=== PATIENT | female | born 1985 | race African-American/Black ===

== ENCOUNTER 2023-05-03 07:22 | Emergency (ER) | payer BC, SELFPAY ==
--- NOTE | ~2023-05-03 | US_ITS ---
EXAMINATION: US OB <=14 wk fetus w TV DATE: 05/03/2023 08:52 INDICATION: Patient miscarried. TECHNIQUE: Real-time transabdominal and transvaginal obstetric ultrasound. FINDINGS: No prior studies for comparison. The uterus measures 8.7 x 5.3 x 5.5 cm. There is a complex cystic structure in the lower uterine segm ent containing internal echoes. No definitive heart motions detected. Right ovary contains a 2 cm corpus luteal cyst. Left ovary is unremarkable. There is free fluid in the pelvis. IMPRESSION: 1. Complex cystic structure lower uterine segment near the cervix. Differential diagnosis includes co mplicated nabothian cyst or gestational sac. No heart motions detected. Recommend follow-up wit h serial quantitative beta-hCG levels and ultrasound as clinically warranted Reviewed, dictated and finalized at location B. IMPRESSION: 1. Complex cystic structure lower uterine segment near the cervix. Differential diagnosis includes complicated nabothian cyst or gestational sac. No hea rt motions detected. Recommend follow-up with serial quantitative beta-hCG leve ls and ultrasound as clinically warranted
[2023-05-03 07:29] VITALS: BP 111/76; PULSE 91; RESP 20; TEMP 36.4; O2SAT 99
[2023-05-03 08:19] LABS: Add Urine Microscopic? YES; Appearance Urine Clear (Clear); Bilirubin Urine Negative (Negative); Blood Urine Trace-Lysed (Negative); Color Urine Yellow (Yellow); Glucose Urine UA Negative (Negative); Ketones Urine Negative (Negative); Leukocyte Esterase Ur Negative LEU/UL (Negative); Nitrate Urine Negative (Negative); Protein Urine Negative (Negative); Urobilinogen Urine 0.2 mg/dL (<2.0)
[2023-05-03 08:21] LABS: Bacteria Urine None Seen /hpf; Non Pathogenic Casts 0-2; RBC Urine 0-2 /hpf (0-2); Squamous Epithelial Cell Urine None Seen /hpf (Few); WBC Urine 0-5 /hpf (0-3)
--- NOTE | 2023-05-03 09:23 | ED.FEMALEGU ---
HPI - Female Genitourinary General Chief complaint: POSTDOCTORAL FELLOW Stated complaint: abdominal pain after miscarriage Time Seen by Provider: 05/03/23 07:54 History of Present Illness HPI Narrative: Pt presents with intermittent crampy lower abdomina pain and vaginal bleeding. Pt says she was given medicines to induce a miscarriage. Pt says she was seen at [facility] last week for abdominal pain and was prescribed oxycodone for pain but says is still having pain. Pt denies urinary symptoms. Related Data Allergies Allergy/AdvReac Type Severity Reaction Status Date / Time minocycline Allergy Rash Verified 05/03/23 07:43 Review of Systems Review of Systems: All systems reviewed & are unremarkable except as noted in HPI and below Exam Const: General: healthy appearing Nutritional Appearance: well nourished Orientation/consciousness: patient oriented x3 Limitations: no limitations Resp: Effort & Inspection: normal respiratory effort Auscultation: clear to auscultation bilaterally Cardio: Rate: regular rate Rhythm: regular rhythm GI: GI Palp: Yes Tenderness to palpation present (GI) (mild suprapbic) Auscultation: normal bowel sounds Neuro: General: patient oriented x3, moves all extremities, no meningeal signs and no focal motor deficits Speech: normal speech Extrem: General: normal to inspection and no clubbing, cyanosis or edema Psych: Appearance: grossly normal Mental Status: mental status grossly normal Affect: normal affect Attitude: cooperative Course Vital Signs Vital signs: Vital Signs Temperature 97.6 F 05/03/23 07:29 Pulse Rate 91 05/03/23 07:29 Respiratory Rate 20 05/03/23 07:29 Blood Pressure 111/76 05/03/23 07:29 Pulse Oximetry 99 05/03/23 07:29 Oxygen Delivery Room Air 05/03/23 07:29 Temperature 97.6 F 05/03/23 07:29 Pulse Rate 77 05/03/23 09:39 Respiratory Rate 20 05/03/23 09:39 Blood Pressure 110/72 05/03/23 09:39 Pulse Oximetry 100 05/03/23 09:39 Oxygen Delivery Room Air 05/03/23 07:29 MDM - Female Genitourinary MDM Narrative Medical decision making narrative: Pt likely continuing to miscarry but will check UA and pelvic sono to make sure not large collection of blood. UA neg and pelvic sono shows likely gestational sac near cervix. discussed with Dr Andersen and wants serial HCG's and type and screen. Pt says is + blood type but will check here so it is in our system. she will folow with serial hcg's Lab Data Labs: Lab Results 05/03/23 05/03/23 Range/Units 08:08 09:43 Beta HCG, Quant 553.06 mIU/ML Urine Color Yellow (Yellow) Urine Appearance Clear (Clear) Urine pH 6.0 (5.0-9.0) Ur Specific [place] 1.020 (1.001-1.035) Urine Protein Negative (Negative) mg/dL Urine Glucose (UA) Negative (Negative) mg/dL Urine Ketones Negative (Negative) mg/dL Ur Blood (Man) Trace-lysed H (Negative) Urine Nitrate Negative (Negative) Urine Bilirubin Negative (Negative) Urine Urobilinogen 0.2 (<2.0) mg/dL Leukocyte Esterase Rfl Negative (Negative) [place]O/UL Urine RBC 0-2 (0-2) /hpf Urine WBC 0-5 (0-3) /hpf Ur Squamous Epith Cells None seen (Few) /hpf Urine Bacteria None seen /hpf Urine Casts 0-2 Blood Type O Positive Antibody Screen Negative Discharge Plan Discharge Clinical Impression: Incomplete miscarriage Patient Disposition: Home, Self-Care Condition: Stable Instructions: Antibiotic Form, Miscarriage (ED) Prescriptions: New naproxen [Naprosyn] 500 mg tablet 500 mg PO BID Qty: 20 0RF Follow-up/Referrals: Flori Andersen MD [Physician] - UNKNOWN,DOCTOR [Primary Care Provider] -
[2023-05-03 09:39] VITALS: BP 110/72; PULSE 77; RESP 20; O2SAT 100
== END 2023-05-03 09:59 | disposition home or self-care (01) ==
PROVIDERS: Emergency Provider Emergency Medicine
DX: O03.4 Incomplete spontaneous abortion without complication (principal)
CPT/HCPCS: 36415; 76801; 76817; 81001; 84702; 86850; 86900; 86901; 99284

== ENCOUNTER 2023-07-23 13:33 | Outpatient (CLI) | payer BC, SELFPAY ==
--- NOTE | ~2023-07-23 | US_ITS ---
FIRST TRIMESTER ULTRASOUND 07/23/2023 13:37 CDT Ordering provider: Flori Andersen MD History: . with h/o recurrent loss . Comparison: None. FINDINGS: Intrauterine gestational 5 weeks and 6 days.. EVELIN is March 18, 2024 INTRAUTERINE GESTATIONAL SAC: Present. [Diameter is 2.1 cm.] Equal to 6 weeks 4 days. YOLK SAC: Present.Measures 0.3 cm. POLE: Present. Measures 0.25 cm. Heart rate is 113 5 bpm. UTERUS: The uterus measures 8.4x 5.4x 5.4 in length which is within normal limits. No myometrial mass es. FREE FLUID: Minimal fluid is seen. OVARIES: Normal in size with the right measuring 2.1x 2.1x 2.7 cm. and the left measuring 6.7 xx 3.1x 3.5 cm. A simple cyst is seen measuring 3.3 x 2.7 x 3.2 cm and a complex cyst measuring 1.5 x 1.1 x 1.1 cm. Doppler flow is demonstrated within both ovaries. ADNEXAL MASSES: None. IMPRESSION: Intrauterine with pole of 5 weeks and 6 days with EVELIN March 18, 2024. Complex cyst in the left ovary. Simple cyst in the left ovary most likely corpus luteum. Follow-up advised. Reviewed, dictated and finalized at location A.
== END 2023-07-23 13:34 ==
LOC: MICIMG 13:35
PROVIDERS: PCP Family Medicine; Visit Provider Obstetrics & Gynecology Gynecology
DX: O26.21 Pregnancy care for patient with recurrent pregnancy loss, first trimester (principal); Z3A.00 Weeks of gestation of pregnancy not specified; N83.202 Unspecified ovarian cyst, left side
CPT/HCPCS: 76817

== ENCOUNTER 2023-09-11 09:32 | Outpatient (CLI) | payer BC, SELFPAY ==
--- NOTE | ~2023-09-11 | US_ITS ---
US OB <= 14 weeks fetus DATE: 09/11/2023 10:05 INDICATION: Left ovarian cyst follow-up TECHNIQUE: Real-time and color flow imaging and Doppler analysis. COMPARISON: 05/03/2023 obstetrical ultrasound FINDINGS: The uterus measures 11.7 cm sagittal, 9.4 cm AP abdomen 11.8 cm transverse dimension. There is a live craig intrauterine gestation, with low-lying anterior placenta. [place]-rump length of 7.3 cm consistent with estimated gestational age of 13 weeks 3 days. heart rate of 150 bpm. Right ovary measures 2.6 x 2.0 x 2.3 cm. Left ovary measures 4.2 x 2.3 x 4.5 cm. There is a left ovarian 2.9 x 2.3 cm cyst. No abnormal free pelvic fluid collection is detected. IMPRESSION: 2.3 x 2.9 cm left ovarian cyst, compared to 2.7 x 3.3 cm on 07/23/2023 Reviewed, dictated and finalized at Location A. Reviewed, dictated and finalized at location J. IMPRESSION: 2.3 x 2.9 cm left ovarian cyst, compared to 2.7 x 3.3 cm on 07/23/19 24
== END 2023-09-11 09:33 ==
LOC: MICIMG 09:34
PROVIDERS: PCP Family Medicine; Visit Provider Obstetrics & Gynecology Gynecology
DX: N83.292 Other ovarian cyst, left side (principal)
CPT/HCPCS: 76801

== ENCOUNTER 2023-10-16 09:44 | Outpatient (CLI) | payer BC, SELFPAY ==
--- NOTE | ~2023-10-16 | US_ITS ---
EXAMINATION: US OB follow up DATE: 10/16/2023 10:05 INDICATION: Low-lying placenta. Left ovarian cyst. TECHNIQUE: Real-time transabdominal ultrasound of the pelvis was performed. COMPARISON: Ultrasound 09/11/2023, 07/23/2023 FINDINGS: There is a single living fetus in vertex presentation. The placenta is anterior, 6.0 cm from the cer vix. The cervical length is 3.0 cm on transabdominal images, which is normal. heart rate is 158 beats per minute (bpm). The amniotic fluid volume is subjectively normal. Right ovary measures 2.6 x 4.0 x 1.8 cm. Left ovary measures 3.4 x 1.6 x 2.3 cm. IMPRESSION: 1. Single living intrauterine gestation with estimated date of delivery of 03/18/2024 based on the ult rasound from 07/23/2023. 2. Normal ovaries. Reviewed, dictated and finalized at location A. IMPRESSION: 1. Single living intrauterine gestation with estimated date of delivery of 03/18 based on the ultrasound from 07/23/2023. 2. Normal ovaries.
== END 2023-10-16 09:45 | disposition home or self-care (01) ==
LOC: MICIMG 09:45
PROVIDERS: PCP Obstetrics & Gynecology Gynecology; Visit Provider Obstetrics & Gynecology Gynecology
DX: N83.202 Unspecified ovarian cyst, left side (principal)
CPT/HCPCS: 76816

== ENCOUNTER 2024-03-23 16:09 | Inpatient (IN) | payer BC, SELFPAY ==
[2024-03-23] VITALS (29 sets, daily range): BP systolic 101–125; BP diastolic 67–98; PULSE 93–130; TEMP 37.2–37.4; O2SAT 91–100; BMI 31.5
--- OUTSIDE RECORDS SUMMARY | 2024-03-23 16:17 | XMS_ITS | Clinical Summary ---
Author Organization [facility] [address] Address [facility] [place] [address] Care Team Providers Care Surgery Assistant Name Role Phone Unavailable Primary Care Provider Unavailabl e Allergies Active Allergy Reactions Criticality Noted Date Comments Minocycline Hives,Itching,Rash,Swelling High 019 Medications valACYclovir (VALTREX) 1 gram tablet Take 1 Gram by mouth. 04/21/2022 Active aspirin (ECOTRIN EC) 81 mg Tablet, Delayed Release (E.C.) Take 81 mg by mouth daily. Active VIT-IRON FUM-FOLIC AC ORAL Take by mouth. Active Active Problems Estimated Date of Delivery Comme nts Yes 03/18/2024 No known active problems Encounters Date Type Department Care Team Description 03/01/2024 External Device Data [facility] ABSTRACTION Provider, Abstract 03/01/2024 External Device Data [facility] ABSTRACTION Provider, Abstract 02/23/2024 External Device Data [facility] ABSTRACTION Provider, Abstract 01/27/2024 3:21 PM [employer]ILITY SUPERVISOR - 01/27/2024 11:59 PM [employer]ACILITY SUPERVISOR Hospital Encounter [facility] [address] [place] [address] Tesha Cason MD Discharge Disposition: Home or Self Care 12/30/2023 3:27 PM [employer] FACILITY SUPERVISOR - 12/30/2023 11:59 PM [employer]ACILITY SUPERVISOR Hospital Encounter [facility] [address] [place] [address] Flori Andersen MD Discharge Disposition: Home or Self Care 12/30/2023 1:45 PM [employer]ACILITY SUPERVISOR Video Visit [facility] Maternal and Medicine - [facility] [address] [place] [address] Tashia Everett NP Abnormal TSH (Primary Dx); Prediabetes in mother during ; 28 weeks gestation of from Last 3 Months Social History Tobacco Use Types Packs/Day Years Used Date Smoking Tobacco: Never Smokeless Tobacco: Never Tobacco Cessation:Counseling Given: Yes Alcohol Use Standard Drinks/Week Comments Not Currently 0 (1 standard drink = 0.6 oz pur e alcohol) Estimated Date of Delivery Comme nts Yes 03/18/2024 Sex and Gender Information Value Date Recorded Sex Assigned at Female 09/08/2023 11:40 AM CDT Legal Sex Female 4:10 PM CDT Gender Identity Female 09/08/2023 11:40 AM CDT Sexual Orientation Straight 09/08/2023 11 :40 AM CDT Last Filed Vital Signs Vital Sign Reading Time Taken Comments Blood Pressure - - Pulse - - Temperature - - Respiratory Rate - - Oxygen Saturation - - Inhaled Oxygen Concentration - - Weight 75.8 kg (167 lb) 09/30/2023 8:05 AM CDT Height 165.1 cm (5' 5 ) 09/30/2023 8:05 AM CDT Body Mass Index 27.79 09/30/2023 8:05 AM CDT Plan of Treatment Health Maintenance Due Date Last Done Comments DTAP/TDAP/TD VACCINES (1 - Tdap) 2004 HEPATITIS B VACCINES (1 of 3 - 19+ 3-dose series) 2004 INFLUENZA VACCINE (#1) 2023 11/04/2022 CERVICAL CANCER SCREENING 07/09/2025 07/09/2022 HPV VACCINES Aged Out No longer eligi ble based on patient's age to complete this topic PNEUMOCOCCAL VACCINE 0-64 YEARS Aged Out No longer eligible based on patient's age to complete this topic RSV VACCINE (60+ or ) (No Doses Required) Completed Procedures Procedure Name Priority Date/Time Associated Diagnosis Comments US OB FOLLOW UP PER FETUS Routine 01/27/2024 3:43 PM [employer]ILITY SUPERVISOR Advanced maternal age in multigravida, third trimester Sickle cell trait US OB FOLLOW UP PER FETUS Routine 12/30/2023 4:03 PM [employer]ACILITY SUPERVISOR Encounter for ultrasound to assess growth Choroid plexus cyst from Last 3 Months Results * US OB FOLLOW UP PER FETUS (01/27/2024 3:43 PM [employer]ACILITY SUPERVISOR) Only the most recent of2 resultswithin the time period is included. Anatomical Region Laterality Modality Pelvis Ultrasound 01/27/2024 3:21 PM [employer]ACILITY SUPERVISOR Narrative 02/04/2024 1:03 PM [employer]E FACILITY SUPERVISOR STL FOLLOW UP ----- Pat. Name: DEVORAH RIDDLE Study Date: 01/27/2024 3:21pm Pat. NO: [id number] Referring MD: FLORI ANDERSEN MD Site: [facility] Program Manager: Belle Houston RDMS : 1985 Age: 38 ----- INDICATION ----- Screening Follow-Up Advanced Maternal Age (AMA), Multigravida Sickle Cell Trait Thyroid Dysfunction Complicating CODING ----- Diagnoses Z3A.32: Weeks of gestation O99.283: Other endocrine, nutritional and metabolic diseases complicating D57.3: Sickle-cell trait O09.523: Supervision of elderly multigravida Z3A.32: Weeks of gestation O35.8XX0: Maternal care for other (suspected) abnormality and damage, not applicable or unspecified O99.283: Other endocrine, nutritional and metabolic diseases complicating O09.523: Supervision of elderly multigravida Z36.2: Encounter for other screening follow-up Procedures 13841: Ultrasound, uterus, real time with image documentation, follow up, transabdominal approach per fetus HISTORY ----- OB History 2. Para 0 A1 METHOD ----- Transabdominal ultrasound examination ----- Barillas . Number of fetuses: 1 DATING ----- GA by prior assessment 32 w + 5 d EVELIN by prior assessment: 03/18/2024 Ultrasound examination on: 01/27/2024 GA by U/S based upon: AC, BPD, EFW, Femur, HC GA by U/S 34 w + 1 d EVELIN by U/S: 03/08/2024 Method of dating: Restore dating from previous exam Assigned: based on stated EVELIN, selected on 11/04/2023 Assigned GA 32 w + 5 d Assigned EVELIN: 03/18/2024 BIOMETRY ----- BPD 87.4 mm 35w 2d 96% Hadlock OFD 107.9 mm 35w 4d 96% Dani HC 310.7 mm 34w 5d 67% Hadlock AC 296.4 mm 33w 4d 76% Hadlock Femur 65.5 mm 33w 5d 67% Hadlock HC / AC 1.05 47% Nicolaides Weight Calculation: EFW 2,310 g 33w 5d 77% Hadlock EFW (lb,oz) 5 lb 1 oz EFW by Hadlock ([id number]) Head / Face / Neck Biometry: Freelance Copywriter 5.7 mm Extremities / Bony Struc Biometry: FL / BPD 0.75 FL / HC 0.21 FL / AC 0.22 GENERAL EVALUATION ----- Cardiac activity present. FHR 136 bpm. movements: present. Presentation: cephalic Placenta: Placental site: anterior Umbilical cord: Cord vessels: 3 vessel cord. Insertion site: placental insertion: normal Amniotic fluid: Amount of AF: normal amount. MVP 7.4 cm. ANCELMO 17.9 cm. Q1 3.9 cm, Q2 7.4 cm, Q3 6.6 cm, Q4 0.0 cm ANATOMY ----- The following structures appear normal: Head / Neck Cranium. Lateral ventricles. Cavum septi pellucidi. Heart / Thorax RVOT view. Diaphragm. Abdomen Stomach. Kidneys. Bladder. GROWTH OVERVIEW ----- Exam date GA BPD (mm) HC (mm) AC (mm) FL (mm) HL (mm) EFW (g) 11/04/2023 20w 5d 51.2 80% 184.4 45% 171.6 85% 35.9 65% 35.3 90% 442 89% 12/30/2023 28w 5d 75.7 86% 274.5 57% 250.6 61% 55.3 48% 1,383 62% 01/27/2024 32w 5d 87.4 96% 310.7 67% 296.4 76% 65.5 67% 2,310 77% COMMENT ----- Patient's name and date of were verified by the polo coach prior to the exam IMPRESSION ----- 1. Single living fetus with a gestational age of 32w 5d, based on the reported clinical dates. 2. Current growth parameters are consistent with the stated EDC. The size is appropriate for gestational age at 77% percentile (2310 g). 3. Unremarkable limited anatomy noted. A detailed anatomy cannot be performed secondary to advanced gestational age. However, there are no gross structural abnormalities noted. 4. The amniotic fluid is normal for gestational age (MVP:7.4 cm , ANCELMO:17.9 cm ). 5. Anterior placenta. No previa/not low-lying. 6. Cephalic presentation. Recommendations: - Further imaging as indicated. Thank you for allowing us to participate in the care of this patient. ADDENDUM ----- retrigger order Procedure Note Yara Carlton MD - 02/04/2024 STL FOLLOW UP ----- Pat. Name:Julia RIDDLE Date:01/27/2024 3:21pm Pat. NO: [id number] MD:FLORI ANDERSEN [facility] RDMS :1985Age:38 ----- INDICATION ----- Screening Follow-Up Advanced Maternal Age (AMA), Multigravida Sickle Cell Trait Thyroid Dysfunction Complicating CODING ----- Diagnoses Z3A.32: Weeks of gestation O99.283: Other endocrine, nutritional andmetabolic diseases complicating D57.3: Sickle-cell trait O09.523: Supervision of elderly multigravida Z3A.32: Weeks of gestation O35.8XX0: Maternal care for other (suspected) abnormality and damage, not applicable or unspecified O99.283: Other endocrine, nutritional andmetabolic diseases complicating O09.523: Supervision of elderly multigravida Z36.2: Encounter for other screeningfollow-up Procedures 98245: Ultrasound, uterus, real time withimage documentation, follow up, transabdominal approach per fetus HISTORY ----- OB History 2. Para 0 A1 METHOD ----- Transabdominal ultrasound examination ----- Barillas . Number of fetuses: 1 DATING ----- GA by prior [id number] w + 5 d EVELIN by prior assessment:03/18/2024 Ultrasound examination on:01/27/2024 GA by U/S based upon:AC, BPD, EFW, Femur, HC GA by U/S34 w + 1 d EVELIN by U/S:03/08/2024 Method of dating:Restore dating from previous exam Assigned:based on stated EVELIN, selected on 11/04/2023 Assigned GA32 w + 5 d Assigned EVELIN:03/18/2024 BIOMETRY ----- BPD 87.4 mm 35w 2d 96%Hadlock OFD 107.9 mm 35w 4d 96%Dani HC 310.7 mm 34w 5d 67%Hadlock AC 296.4 mm 33w 4d 76%Hadlock Femur 65.5 mm 33w 5d 67%Hadlock HC / AC 1.05 47%Nicolaides Weight Calculation: EFW 2,310 g 33w 5d77% Hadlock EFW (lb,oz) 5 lb 1 oz EFW by Hadlock ([id number]) Head / Face / Neck Biometry: Freelance Copywriter 5.7mm Extremities / Bony Struc Biometry: FL / BPD 0.75 FL / HC 0.21 FL / AC 0.22 GENERAL EVALUATION ----- Cardiac activity present. FHR 136 bpm. movements: present.Presentation: cephalic Placenta: Placental site: anterior Umbilical cord: Cord vessels: 3 vessel cord. Insertion site: placentalinsertion: normal Amniotic fluid: Amount of AF: normal amount. MVP 7.4 cm. ANCELMO 17.9 cm. Q13.9 cm, Q2 7.4 cm, Q3 6.6 cm, Q4 0.0 cm ANATOMY ----- The following structures appear normal: Head / Neck Cranium. Lateral ventricles. Cavum septipellucidi. Heart / Thorax RVOT view. Diaphragm. Abdomen Stomach. Kidneys. Bladder. GROWTH OVERVIEW ----- Exam date GA BPD (mm) HC (mm) AC (mm) FL(mm) HL (mm) EFW (g) 11/04/2023 20w 5d 51.2 80% 184.4 45% 171.6 85%35.9 65% 35.3 90% 442 89% 12/30/2023 28w 5d 75.7 86% 274.5 57% 250.6 61%55.3 48% 1,383 62% 01/27/2024 32w 5d 87.4 96% 310.7 67% 296.4 76%65.5 67% 2,310 77% COMMENT ----- Patient's name and date of were verified by the polo coach prior tothe exam IMPRESSION ----- 1. Single living fetus with a gestational age of 32w 5d, based on thereported clinical dates. 2. Current growth parameters are consistent with the stated EDC. The fetalsize is appropriate for gestational age at 77% percentile (2310 g). 3. Unremarkable limited anatomy noted. A detailed anatomycannot be performed secondary to advanced gestational age. However, there are no gross structural abnormalities noted. 4. The amniotic fluid is normal for gestational age (MVP:7.4 cm , ANCELMO:17.9cm ). 5. Anterior placenta. No previa/not low-lying. 6. Cephalic presentation. Recommendations: - Further imaging as indicated. Thank you for allowing us to participate in the care of this patient. ADDENDUM ----- retrigger order us Tesha Cason MD ORDERABLES E dited Result - Final from Last 3 Months Insurance [facility] [employer]
--- NOTE | 2024-03-23 16:39 | P.PNAN_ITS ---
Anes - Eval Pre Procedure Procedure: labor epidural Date/Time: 03/23/24 16:39 Surgeon: sathya Preop Diagnosis: pain during labor Pre Op Diagnosis: Induction of Labor Patient Data Age: 38 Gender: F Height: Weight: Allergies Allergy/AdvReac Type Severity Reaction Status Date / Time minocycline Allergy Rash Verified 02/25/24 23:32 Home Medications ?Medication ?Instructions ?Recorded ?Confirmed ?Type aspirin 81 mg chewable tablet 81 mg PO DAILY 02/19/24 02/25/24 History (Adis Chewable Low Dose Aspirin) ferrous sulfate 15 mg iron (75 0.5 ml PO ONCE 02/19/24 02/25/24 History mg)/mL oral drops (Fe-Marlene) vit no.95-ferrous 1 tablet PO DAILY 02/19/24 02/25/24 History fumarate 28 mg-folic acid 800 mcg tablet () Patient hx anesthesia problems: none Family hx anesthesia problems: none Results Review: All pre-operative results and documents have been reviewed as part of the pre- operative evaluation. PMFSH Past Medical History Medical History (Updated 03/23/24 @ 16:40 by Dianne Mac CRNA) IUP (intrauterine ), incidental HPV (human papilloma virus) infection Family History Family History (Updated 02/19/24 @ 12:25 by Svetlana Crenshaw RN) Grandparent Cerebrovascular accident Diabetes mellitus Social History Social History Substance use: never Spiritual care concerns: No Exam Day of Procedure 03/23/24 16:39
[2024-03-23 17:09] LABS: Basophils Percent Auto 0.3 % (0.2-1.2); Eosinophils Percent Auto 0.3 % (0-4.4); Hematocrit 35.2 % (37.0-47.0); Immature Granulocyte Absolute 0.03 K/mm3 (0.00-0.031); Immature Granulocyte Percent A 0.3 % (0-0.5); Lymphocytes Absolute Auto 1.93 K/mm3 (0.9-3.2); Lymphocytes Percent Auto 19.1 % (18.3-44.2); Mean Corpuscular HGB Conc 34.1 g/dl (32-36); Mean Corpuscular Hemoglobin 29.3 pg (26-34); Mean Corpuscular Volume 86.1 fl (80-100); Mean Platelet Volume 11.1 fl (7.4-10.4); Monocytes Absolute Auto 0.7 K/mm3 (0.1-0.6); Monocytes Percent Auto 6.4 % (2.6-8.5); Neutrophils Absolute Auto 7.5 K/mm3 (1.3-6.7); Neutrophils Percent Auto 73.6 % (45.5-73.1); Platelet Count Result 238 k/mm3 (150-375); Red Blood Count 4.09 M/mm3 (4.2-5.4); Red Cell Distribution Width 14.5 % (11.5-14.5); White Blood Count 10.1 K/mm3 (4.5-10.0)
[2024-03-23] MEDS: DINOPROSTONE 10 MG VAG INSERT VAGINAL (17:11)
--- NOTE | 2024-03-23 17:15 | LDADM ---
This patient, Devorah Darden, was admitted to Labor/Delivery/Recovery 108 on 03/23/24 at 16:09. Plans for labor, pain management and were discussed with patient. Patient/family oriented to hospital policies and general routines including ID bracelet, bed and alarms, visiting hours, pain management, procedures, bathroom and other care routines, personal items, smoking policy, room service/diet and guest tray routines, security routines, and visiting hours. Patient/Family are encouraged to report perceived risks to care and to ask questions if they do not understand what they are told or what they should do. See OBIX for further documentation.
[2024-03-23 17:58] LABS: Rapid Plasma Reagin Non-Reactive (NonReactive)
[2024-03-23 17:59] LABS: HIV 1/2 Ab P24 Ag Result Negative (Negative)
[2024-03-23] MEDS: fentaNYL CITRATE INJ (*CRX) 100 MCG/2 ML VIAL 50 MCG IV PUSH (22:51)
[2024-03-23] MEDS: ONDANSETRON INJ 4 MG/2 ML VIAL IV PUSH (22:59)
[2024-03-24] VITALS (137 sets, daily range): BP systolic 94–122; BP diastolic 45–93; PULSE 78–127; TEMP 36.3–37.3; O2SAT 94–100
[2024-03-24] MEDS: LACTATED RINGERS 500 ML 999 ML IV CONT (00:47)
[2024-03-24] MEDS: OXYTOCIN 30 UNITS/NS 500 ML 30 UNITS/500 ML BAG IV CONT (07:20)
[2024-03-24] MEDS: LACTATED RINGERS 1,000 ML 125 ML IV CONT ×2 (07:20→15:54)
--- NOTE | 2024-03-24 07:45 | WPDOBADMIT ---
Obstetrics - Admit Note Admission Note: record reviewed. No pertinent additions to the history and/or any subsequent changes in the physical findings that are not consistent with the expected course of the were found. Additions to the history and/or subsequent changes in the physical findings follow. Here for MIL. Cervadil last pm pulled at about mn due to tachysystole. Infant with random late decels per RN that resolved with position change and fluids. This am FHTs cat. I and pitocin started. Cervix FT/50/-2.
[2024-03-24] MEDS: ACETAMINOPHEN 500 MG TABLET 1000 MG PO (23:45)
[2024-03-24] MEDS: FAMOTIDINE 20 MG/2 ML VIAL IV PUSH (23:53)
[2024-03-24] MEDS: ONDANSETRON INJ 4 MG/2 ML VIAL IV PUSH (23:55)
--- NOTE | 2024-03-24 23:57 | WPDHPUPDATE1 ---
History and Physical Update Update Date/Time: 03/24/24 23:57 History and Physical has been reviewed, including an updated exam of the patient. There are NO changes in the patient's condition. Risks, benefits, and alternatives have been discussed and questions answered. Patient agrees to proceed with procedure.
--- NOTE | 2024-03-24 23:57 | PM.IMHP ---
H&P: HPI History of Present Illness Date/Time: 03/24/24 23:57 Chief Complaint: intolerance of labor Narrative: The patient is a 38-year-old 2 para 0 aborta 1 at 40 and 6 7th weeks admitted for medical induction of labor. After Cervidil was placed, [id number] later of tachysystole occurred and the Cervidil had to be pulled due to intolerance. Pitocin was unable to be started right away due to continued random late decelerations. The heart sounds starting this afternoon were category 1 so Pitocin was able to be started. Pitocin increased slowly until I received a phone call at 11:26 pm that the patient began having repetitive late decelerations and the Pitocin was discontinued. Contractions spaced out but heart tones had no accelerations with minimal variability for [id number]. The heart tones now have good variability with 10 beat accelerations. The patient's cervix has had no cervical change throughout the induction process. Plan is to proceed with primary when staffing is available. In addition the plan had been to proceed with bilateral tubal ligation performed as a salpingectomy if the patient required a . The patient has still voiced the request for permanent sterilization. Therefore we will proceed also with a bilateral salpingectomy. has been uncomplicated to this point. labs O positive, rubella immune, RPR negative, hepatitis-B surface antigen negative, group B strep negative. Review of Systems Review of Systems: not repeated day of surgery; patient states no changes in status PMFSH Past Medical History Medical History (Updated 03/25/24 @ 00:06 by Flori Andersen MD) History of TB (tuberculosis) Treated in 2021 Hyperthyroidism HPV (human papilloma virus) infection Family History Family History (Updated 02/19/24 @ 12:25 by Svetlana Crenshaw RN) Grandparent Cerebrovascular accident Diabetes mellitus Social History Social History Smoking status: Never smoker Second hand tobacco smoke exposure: No Substance use: never Do You Feel Safe in your Home?: Yes Lack of Transportation: No Lack of Food: Never True Current Housing: I Have Housing Concerned About Future Housing: No Difficulty Paying Gas/Electric Bills: No Difficulty Paying for Meds: No Currently Unemployed: No Education: High School Diploma/GED Difficulty w/ Childcare or Family Care: No Spiritual care concerns: No Meds Home Medications and Allergies Home Medications ?Medication ?Instructions ?Recorded ?Confirmed ?Type aspirin 81 mg chewable tablet 81 mg PO DAILY 02/19/24 03/23/24 History (Adis Chewable Low Dose Aspirin) ferrous sulfate 15 mg iron (75 0.5 ml PO ONCE 02/19/24 03/23/24 History mg)/mL oral drops (Fe-Marlene) vit no.95-ferrous 1 tablet PO DAILY 02/19/24 03/23/24 History fumarate 28 mg-folic acid 800 mcg tablet () valacyclovir 500 mg tablet 500 mg PO DAILY 03/23/24 03/23/24 History Allergies Allergy/AdvReac Type Severity Reaction Status Date / Time minocycline Allergy Rash Verified 02/25/24 23:32 Vital Signs Vital Signs - 24 hr 03/24/24 00:00 03/24/24 00:05 03/24/24 00:10 Temperature Pulse Rate 101 H Blood Pressure 117/83 Pulse Oximetry 95 95 94 03/24/24 00:15 03/24/24 00:20 03/24/24 00:25 Temperature Pulse Rate Blood Pressure Pulse Oximetry 95 95 95 03/24/24 00:30 03/24/24 00:34 03/24/24 00:44 Temperature Pulse Rate 92 Blood Pressure 105/66 Pulse Oximetry 96 99 03/24/24 00:46 03/24/24 00:47 03/24/24 00:51 Temperature 99.1 F Pulse Rate Blood Pressure Pulse Oximetry 98 100 03/24/24 00:56 03/24/24 01:00 03/24/24 01:01 Temperature Pulse Rate 107 H Blood Pressure 118/93 H Pulse Oximetry 97 98 03/24/24 01:06 03/24/24 01:11 03/24/24 01:16 Temperature Pulse Rate Blood Pressure Pulse Oximetry 97 98 96 03/24/24 01:21 03/24/24 01:34 03/24/24 01:39 Temperature Pulse Rate Blood Pressure 103/79 Pulse Oximetry 98 97 97 03/24/24 01:44 03/24/24 01:49 03/24/24 01:54 Temperature Pulse Rate Blood Pressure Pulse Oximetry 98 95 96 03/24/24 01:59 03/24/24 02:01 03/24/24 02:04 Temperature Pulse Rate 80 Blood Pressure 114/76 Pulse Oximetry 97 96 03/24/24 02:09 03/24/24 02:14 03/24/24 02:19 Temperature Pulse Rate Blood Pressure Pulse Oximetry 97 96 96 03/24/24 02:24 03/24/24 02:29 03/24/24 02:31 Temperature Pulse Rate 92 Blood Pressure 101/82 Pulse Oximetry 97 96 03/24/24 02:34 03/24/24 02:39 03/24/24 02:44 Temperature Pulse Rate Blood Pressure Pulse Oximetry 95 96 96 03/24/24 02:49 03/24/24 02:54 03/24/24 02:59 Temperature Pulse Rate Blood Pressure Pulse Oximetry 96 96 96 03/24/24 03:00 03/24/24 03:04 03/24/24 03:09 Temperature Pulse Rate 87 Blood Pressure 95/53 L Pulse Oximetry 96 96 03/24/24 03:14 03/24/24 03:19 03/24/24 03:24 Temperature Pulse Rate Blood Pressure Pulse Oximetry 95 96 98 03/24/24 03:29 03/24/24 03:34 03/24/24 03:39 Temperature Pulse Rate Blood Pressure Pulse Oximetry 97 96 98 03/24/24 03:44 03/24/24 03:49 03/24/24 03:54 Temperature Pulse Rate Blood Pressure Pulse Oximetry 98 97 98 03/24/24 03:59 03/24/24 04:04 03/24/24 04:09 Temperature Pulse Rate Blood Pressure Pulse Oximetry 97 96 96 03/24/24 04:14 03/24/24 04:19 03/24/24 04:24 Temperature 98.7 F Pulse Rate 90 Blood Pressure 109/73 Pulse Oximetry 96 96 97 03/24/24 04:29 03/24/24 04:30 03/24/24 04:34 Temperature Pulse Rate 84 Blood Pressure 113/75 Pulse Oximetry 96 96 03/24/24 04:39 03/24/24 04:44 03/24/24 04:49 Temperature Pulse Rate Blood Pressure Pulse Oximetry 96 96 97 03/24/24 04:54 03/24/24 04:59 03/24/24 05:00 Temperature Pulse Rate 82 Blood Pressure 102/73 Pulse Oximetry 95 97 03/24/24 05:04 03/24/24 05:09 03/24/24 05:14 Temperature Pulse Rate Blood Pressure Pulse Oximetry 97 97 97 03/24/24 05:19 03/24/24 05:24 03/24/24 05:29 Temperature Pulse Rate Blood Pressure Pulse Oximetry 97 96 97 03/24/24 05:30 03/24/24 05:34 03/24/24 05:39 Temperature Pulse Rate 86 Blood Pressure 117/73 Pulse Oximetry 96 96 03/24/24 05:44 03/24/24 05:49 03/24/24 05:54 Temperature Pulse Rate Blood Pressure Pulse Oximetry 96 97 97 03/24/24 05:59 03/24/24 06:00 03/24/24 06:04 Temperature Pulse Rate 84 Blood Pressure 104/75 Pulse Oximetry 96 96 03/24/24 06:09 03/24/24 06:15 03/24/24 06:20 Temperature Pulse Rate Blood Pressure Pulse Oximetry 96 97 98 03/24/24 06:25 03/24/24 06:30 03/24/24 07:00 Temperature 98.3 F Pulse Rate Blood Pressure Pulse Oximetry 98 100 03/24/24 07:01 03/24/24 07:06 03/24/24 07:11 Temperature Pulse Rate Blood Pressure Pulse Oximetry 98 98 99 03/24/24 07:16 03/24/24 07:20 03/24/24 07:21 Temperature Pulse Rate 93 Blood Pressure 103/63 Pulse Oximetry 98 99 03/24/24 07:26 03/24/24 07:30 03/24/24 07:31 Temperature Pulse Rate 93 Blood Pressure 94/75 L Pulse Oximetry 98 98 03/24/24 07:36 03/24/24 07:41 03/24/24 07:46 Temperature Pulse Rate Blood Pressure Pulse Oximetry 100 100 97 03/24/24 07:51 03/24/24 07:52 03/24/24 07:57 Temperature Pulse Rate Blood Pressure Pulse Oximetry 95 96 96 03/24/24 08:00 03/24/24 08:02 03/24/24 08:07 Temperature Pulse Rate 89 Blood Pressure 107/64 Pulse Oximetry 95 96 03/24/24 08:12 03/24/24 08:17 03/24/24 08:22 Temperature Pulse Rate Blood Pressure Pulse Oximetry 98 97 98 03/24/24 08:27 03/24/24 08:30 03/24/24 08:32 Temperature Pulse Rate 90 Blood Pressure 113/72 Pulse Oximetry 98 97 03/24/24 08:37 03/24/24 09:00 03/24/24 09:30 Temperature 97.4 F L Pulse Rate 81 91 Blood Pressure 105/64 118/81 Pulse Oximetry 97 03/24/24 10:00 03/24/24 10:30 03/24/24 11:00 Temperature 99 F Pulse Rate 87 91 Blood Pressure 107/68 101/63 Pulse Oximetry 03/24/24 11:01 03/24/24 11:30 03/24/24 12:30 Temperature Pulse Rate 96 95 98 Blood Pressure 110/60 106/79 110/74 Pulse Oximetry 03/24/24 13:00 03/24/24 13:30 03/24/24 15:00 Temperature 98.8 F Pulse Rate 102 H 97 Blood Pressure 114/68 119/83 Pulse Oximetry 03/24/24 15:35 03/24/24 16:00 03/24/24 16:30 Temperature Pulse Rate 115 H 99 89 Blood Pressure 119/83 122/80 112/89 Pulse Oximetry 03/24/24 17:00 03/24/24 18:01 03/24/24 18:30 Temperature Pulse Rate 95 127 H 97 Blood Pressure 111/79 98/45 L 108/81 Pulse Oximetry 03/24/24 19:00 03/24/24 19:17 03/24/24 21:00 Temperature 98.1 F 98.3 F Pulse Rate 98 Blood Pressure 116/70 Pulse Oximetry 03/24/24 21:07 03/24/24 21:30 03/24/24 22:00 Temperature Pulse Rate 108 H 83 87 Blood Pressure 117/88 121/81 114/76 Pulse Oximetry 03/24/24 23:38 Temperature Pulse Rate 95 Blood Pressure 122/83 Pulse Oximetry Exam Const: General: healthy appearing and alert Orientation/consciousness: patient oriented x3 Resp: Effort & Inspection: normal respiratory effort GI: GI Palp: Yes Soft to palpation and No Tenderness to palpation present (GI) : External Female Exam: normal external appearance Speculum Exam - Vagina: normal appearance of the vagina and normal vaginal discharge Bimanual exam- vagina & uterus: consistency normal Bimanual Exam- Adnexa, other: normal adnexae and No adnexal tenderness Manual OB Exam: dilated fingertip, effaced 0% and station -2 Neuro: General: patient oriented x3 Assessment and Plan Assessment and plan (1) 40 weeks gestation of : Code(s): Z3A.40 - 40 weeks gestation of Status: Acute (2) intolerance to labor, delivered, current hospitalization: Code(s): O77.9 - Labor and delivery complicated by stress, unspecified Status: Acute Assessment and Plan: Plan to proceed with primary section (3) Encounter for sterilization: Code(s): Z30.2 - Encounter for sterilization Status: Acute Assessment and Plan: Plan to proceed with bilateral salpingectomy
[2024-03-25] VITALS (24 sets, daily range): BP systolic 82–142; BP diastolic 49–113; PULSE 57–186; RESP 10–23; TEMP 36.3–37.1; O2SAT 98–100
[2024-03-25] MEDS: ceFAZolin 2 GM/D5W 50 ML 2 GM/50 ML BAG IVPB (00:05)
[2024-03-25] MEDS: ONDANSETRON INJ 4 MG/2 ML VIAL IV PUSH ×3 (00:58→05:39)
[2024-03-25] MEDS: AZITHROMYCIN 500 MG/NS 250 ML 500 MG/250 ML BAG 250 MG IVPB (01:33)
[2024-03-25] MEDS: diphenhydrAMINE HCl INJ 50 MG/ML VIAL 25 MG IV PUSH ×2 (01:41→05:42)
--- NOTE | 2024-03-25 02:11 | P.PCNOB_ITS ---
OB - Delivery Note Procedure Delivery date: 03/25/24 Pre-op diagnosis: Decelerations and Other (Postdates; requests sterilization) Post-op Diagnosis: Other (Left broad ligament laceration) Induction method: Per Misoprostol Protocol and Per Pitocin Protocol Delivery monitor: External FHT and External Uterine Prior to decision for section, ACOG/SMFM labor guidelines were considered and discussed with the patient and staff. Decision made to proceed with the section.: Yes Procedure Performed: Primary Primary branch: low cervical, transverse and Other (Bilateral salpingectomy; repair left broad ligament laceration) Surgeon: Flori Andersen MD Anesthesia type: Spinal Description of Procedure/Findings: The patient was taken to the operating room placed under spinal anesthesia in the dorsal supine position with a leftward tilt. As the patient was feeling the effects from the spinal, she began to have panic attack. As the sales merchandise associate was prepping and placing the Hamm catheter, anesthesia and I attempted to call the patient. Anesthesia placed oxygen which seem to calm the patient down. Once anesthesia was deemed effective the patient's mother was brought to the bedside. The patient was prepped and draped in the usual sterile fashion. A Pfannenstiel skin incision was made with a scalpel and carried down to the underlying layer of fascia which was nicked in the midline and extended laterally using Larry scissors. [facility] was used to tent the fascia which was then dissected off using sharp and blunt dissection. The rectus muscles are and the peritoneum tented and entered. The bladder blade was placed and the vesicouterine peritoneum tented and entered with Metzenbaum scissors. The incision was extended laterally and the bladder flap was created digitally. The bladder blade was replaced. The lower uterine segment was incised in a transverse fashion with a scalpel and extended with blunt traction. While guiding the vertex the news production assistant applied fundal pressure. The vertex almost delivered but we could not quite get the last part of the head delivered. I called for a kiwi vacuum and we relaxed while preparing to place the kiwi. The infant rotated head and presented a shoulder attempts to rotate the infant back into a vertex position were not successful. The was internally rotated to the breech presentation and both feet grasp the infant was delivered footling breech to the scapula. The was rotated and the arm was splinted on the right and delivered. The infant was rotated and the arm was splinted on the left and delivered. The infant was extended on the abdomen and the head delivered. The had poor tone and therefore the cord was quickly clamped and cut the infant handed to the waiting nursery nurse. The cord blood cord gases were taken and the placenta was removed using manual traction. The uterus was cleared of all clots and debris and exteriorized. The uterine incision was closed using 0 Monocryl in a running locked fashion. Same suture was used to imbricate. Good hemostasis of the uterine incision was noted. Bleeding was noted to be coming from the left side. Inspection revealed the left broad ligament to be detached from the uterus. From the posterior surface the broad ligament was reattached to the uterus and a running lock stitch of 0 Monocryl. From the anterior surface the broad ligament was reattached to the uterus in a running locked stitch of 0 Monocryl. No hematoma developed between the 2 layers. After [id number] of observation, Surgicel powder was placed posteriorly and anteriorly. Attention was turned to the left tube which was grasped with a Tristin and crossclamped using a Z clamp. The distal tube was excised and the pedicle tied off using 0 Vicryl in a Leo stitch followed by a free tie. Good hemostasis is noted at the tubal site. The identical procedure was performed on the right tube. Good hemostasis was noted at the right tube. The broad ligament anterior and posterior was re-evaluated and noted to be hemostatic. The uterus was returned to the abdomen. The base of the laceration anteriorly had some bleeding requiring additional 0 Monocryl in a running stitch. Under the bladder flap there was also 1 area of bleeding that required 0 Monocryl in a running stitch. Additional Surgicel powder was placed under the bladder flap. After observing for 2minutes and no further bleeding noted all instruments and sponges were removed. The fascia was closed using 0 Vicryl in a running fashion. Subcutaneous tissues were irrigated made hemosta tic using Bovie cautery. Skin is closed using 4-0 Vicryl in a subcuticular fashion. Dermaflex was placed over the incision. Patient was given TXA at the end of the case. Sponge, needle, and instrument counts are correct per the OR staff. Patient is taken to the recovery room in stable condition. Specimen: Yes (Placenta and tubes) Estimated Blood Loss: 1,455 Drains: Yes (Hamm catheter) Packing: No Pathology: Yes Complications: Other complications (Left broad ligament laceration with bleeding) Condition: Stable Disposition: Floor [place] Baby Date of : 03/25/24 Gestational Age by Date: 41 gender: Male Weight (pounds): 7 Weight (ounces): 5 presentation: other (See dictation) position: Right Sacrum Anterior Placenta delivery description: Spontaneous Cord Vessel Description: 3 Vessels score one minute: 1 score five minutes: 8
--- NOTE | 2024-03-25 02:24 | P.DS_ITS ---
DS: Admitting Diagnosis Discharge Date 03/28/24 Admitting Diagnosis Intrauterine at 40 and 5 7th weeks Medical induction of labor DS: Discharge Diagnosis Discharge Diagnosis (1) intolerance to labor, delivered, current hospitalization: Code(s): O77.9 - Labor and delivery complicated by stress, unspecified Status: Acute (2) Status post primary low transverse section: Code(s): Z98.891 - History of uterine scar from previous surgery Status: Acute (3) Status post bilateral salpingectomy: Code(s): Z90.79 - Acquired absence of other genital organ(s) Status: Acute (4) Laceration: Status: Acute Assessment and Plan: Left broad ligament with repair OB - DS: Summary OB Procedures : NST and Ultrasound OB Procedures Intrapartum: low cervical, transverse, Tubal ligation (Bilateral salpingectomy) and Other (Repair of left broad ligament laceration) OB Procedures: : None Peripartum Data Infant Delivery Method: Section Laceration Description: Other (See dictation) Procedures: Procedures Operation Date: 03/24/24 23:55 <No data on this case meets the specified criteria> complications: other (Bleeding from broad ligament laceration) Status at Discharge Functional status at discharge: independent ambulation Overall status at discharge: patient is progressing back to baseline Time Spent with Patient Time attestation: Total time spent providing and/or coordinating discharge services: Discharge Plan Discharge Attending physician on discharge: Flori Andersen Discharging Clinician: Flori Andersen Anticipated Discharge Date/Time: 03/28/24 02:27 Patient Disposition: Home, Self-Care Activity: may shower, may drive after 2 weeks and pelvic rest Diet: regular Wound Care Instructions: incision open to air Discharge Instructions: Pumping Plan? You are exclusively pumping at discharge. It is important to pump regularly and consistently to help maintain your milk supply.?Regular milk removal is necessary for continued milk production.?You?need to pump at least 8 times every 24 hours.?You can use hands on pumping to get better results with pumping and to encourage your breasts to produce more milk. Hands on pumping instructions:? * Massage your breasts before applying the breast pump.? * Pump both breasts at once. Use your hands to massage and compress while you pump.? * Stop pumping when the milk stops flowing? * Massage your breasts again? * End the pumping session by pumping or hand expressing one breast at a time while massaging and compressing your breast. Go back and forth between each breast until the milk stops flowing.? * Allow 25 minutes to complete this routine??? It is important to be sure you have a well-fitted pump flange. Consult your pump manual for recommended flange sizing or consult a professional. ? YOU SHOULD SET YOUR PUMP TO THE HIGHEST COMFORTABLE LEVEL. INCREASE THE SUCTION?GRADUALLY UNTIL YOU REACH THE CORRECT SETTING. PUMPING SHOULD NOT HURT.? ? CONSULT YOUR PUMP MANUAL FOR GUIDANCE ON PUMP SETTINGS AND FUNTIONS. MOST PUMPS RECOMMEND 1-2 MINUTES OF THE QUICK ?MASSAGE? MODE, THEN SWITCHING TO THE SLOWER ?EXPRESSION? MODE FOR THE REMAINDER OF THE PUMPING SESSION.?? ? Pump each breast for 10-15 minutes. Pumping will help stimulate your breasts to produce milk.? Follow the collection and storage sheet given to you in the Mom and Baby Guide. Remember to keep track of all feedings/elimination on the blue worksheet provided.? ? Clean your pump parts between each pumping session according to the guidelines in your pump manual. It is recommended that you use a basin that is reserved for washing pump parts that is separate from your sink to prevent contamination. If you are pumping for an ill or , you should disinfect your pump parts once a day by boiling them in hot water for 5 minutes after cleaning.? ? Ways to increase your milk supply:? * Increase frequency of?pumping (10-12 times every 24 hours)? * Lots of skin to skin (if is able), especially before pumping? * Use warm washcloths before pumping and gentle breast massage before and during pumping? * Reduce stress, relax with music, get plenty of rest, and drink to thirst? * Warm pump flanges with warm water before pumping? * Pump until the milk stops flowing, then pump for 2 more minutes to fully empty the breast? * Pump at least once through the night, milk shouldn?t remain in the breast for longer than 4 hours? * Power pumping: Pump for 15-20 minutes, rest for 10 minutes, pump for 10, rest for 10, pump for 10. Do this routine 1-2 times a day for several days or until you notice an increase in milk supply. Pump normally between power pumping sessions.? ? You may contact the Team at [phone] for questions and appointments.? These discharge instructions have been explained to me and I have received a copy.? Patient Instructions: Antibiotic Form Patient Language: Citizen Of [place] Stand Alone Forms: General Discharge Information, Work/School Release IP Follow-up/Referrals: Flori Andersen MD [Physician] - 1 Week (And 6 weeks) Discharge Medications: New hydrocodone-acetaminophen 5-325 mg Tablet 1 tablet PO Q3H PRN (Reason: Breakthrough Pain Rated 4-6) Qty: 20 0RF Continued ferrous sulfate [Fe-Marlene] 15 mg iron (75 mg)/mL drops 0.5 ml PO ONCE PNV cmb#95-ferrous fumarate-FA [] 28 mg iron- 800 mcg tablet 1 tablet PO DAILY valacyclovir 500 mg tablet 500 mg PO DAILY Discontinued aspirin [Adis Chewable Aspirin] 81 mg tablet,chewable 81 mg PO DAILY Date of admission: 03/23/24 16:09 Primary Care Provider: Janine,Jimena Adam Admitting Provider: Flori Andersen Attending physician on admission: Flori Andersen Condition: Stable
[2024-03-25 02:47] LABS: Hematocrit 27.9 % (37.0-47.0); Hemoglobin 9.3 g/dL (12.0-15.0); Mean Corpuscular HGB Conc 33.3 g/dl (32-36); Mean Corpuscular Hemoglobin 29.2 pg (26-34); Mean Corpuscular Volume 87.7 fl (80-100); Platelet Count Result 187 k/mm3 (150-375); Red Blood Count 3.18 M/mm3 (4.2-5.4); Red Cell Distribution Width 14.5 % (11.5-14.5); White Blood Count 12.7 K/mm3 (4.5-10.0)
[2024-03-25 02:58] LABS: INR 0.9
[2024-03-25 02:59] LABS: Partial Thromboplastin Time 24.2 Seconds (22.3-36.8)
--- NOTE | 2024-03-25 04:18 | OBPPTRN ---
Patient transferred to post room #282 via wheelchair. Support person present. Oriented to unit, room, information board, rooming in, admission packet and security measures. Patient verbalizes understanding.
[2024-03-25] MEDS: OXYTOCIN 30 UNITS/NS 500 ML 30 UNITS/500 ML BAG 125 UNITS IV CONT (05:36)
[2024-03-25] MEDS: LIDOCAINE 5% PATCH 1 PATCH TRANSDERM (09:13)
[2024-03-25] MEDS: ACETAMINOPHEN 325 MG TABLET 650 MG PO ×2 (09:14→15:40)
[2024-03-25] MEDS: MULTIVIT/MIN/PREN/FOL AC/IRON TABLET 1 TAB PO (10:15)
[2024-03-25] MEDS: SIMETHICONE 80 MG TAB.CHEW PO ×2 (10:16→15:40)
[2024-03-25] MEDS: POLYSACCHARIDE IRON COMPLEX 150 MG CAPSULE PO (10:16)
[2024-03-25] MEDS: DOCUSATE SODIUM 100 MG CAPSULE PO ×2 (10:16→15:40)
--- NOTE | 2024-03-25 11:08 | P.PNOB_ITS ---
OB - PN: Subj Subjective Date/time seen: 03/25/24 11:08 Interval history: Patient up ambulating halls and up in room. No dizziness. Minimal pain. Feels very well. Patient comments: no complaints and pain well controlled baby status: doing well [place] feeding status: exclusively breast feeding OB - PN: Obj Data Labs 03/25/24 02:42 Labs: Laboratory Results - last 24 hr 03/25/24 02:42 WBC 12.7 H RBC 3.18 L Hgb 9.3 L Hct 27.9 L MCV 87.7 MCH 29.2 MCHC 33.3 RDW 14.5 Plt Count 187 MPV 11.0 H PT 13.0 INR 0.9 APTT 24.2 OB - PN A/P Plan day: 0 Plan: routine care Comments: Recheck H/H at 11. Asymptomatic with her anemia. Doubtful will need blood transfusion. Time Spent With Patient Time: Total time spent is greater than 50% in coordination of care (as documented) at patient's floor/unit and/or counseling patient: Exam 2 Narrative: inc c/d/i : Bimanual exam- vagina & uterus: other (Uterus firm, nt @U)
[2024-03-25 11:13] LABS: Hematocrit 30.9 % (37.0-47.0); Hemoglobin 10.5 g/dL (12.0-15.0)
--- NOTE | 2024-03-25 15:09 | PC.NURSE ---
Addendum entered by Makayla Delgado RN 03/25/24 17:47: 0925 Nipple shield provided to mother due to baby unable to latch (See other note). Reviewed good handwashing, cleaning the nipple shield and the appropriate way to apply and use as a tool. Discussed with mom the nipple shield precautions, possible complications associated with the risks and benefits. Reviewed practicing with a nipple shield, then without and how to protect the milk supply and production. Mom and baby guide referred to as a resource for outpatient services, community resources and when to call a provider. Mom voiced understanding of the importance of hand expression, nipple stimulation and initiating a pumping schedule if continues to nurse with the shield. Reported to the Primary RN. Original Note: [id number] Introductions were made, then consulted with patient to assess needs related to . Mother led the conversation with her?plans to feed?her infant and the?experience so far. Encouraged understanding of the benefits of skin to skin (demonstrating unwrapping infant and placing upright on her chest), stimulating with massage touch, changing positions to encourage wakefulness, how to watch for early feeding cues, responsive feeding, feeding on demand (aiming for 8-12 times in 24 hours, about every 2-3 hours), milk production, building/maintaining a milk supply, duration of feeding, signs of adequate intake/output and how to record on the feeding sheet. Mother works well with her with encouragement and education. Reviewed positioning and ear, shoulder, hip alignment, supporting the breast to facilitate a deep latch, asymmetrical latch (off-center), leading with the chin with a big, open, wide gape and body close to mother. Infant latched optimally to the [left] breast in [football] position with the nipple shield, mothers nipple is very soft and does not stay everted when baby tries to latch. Education given to the mother of how to visualize the suckling (with good rocking jaw motion), swallows (dropping of the lower jaw) and how to listen for drinking at the breast (the ka sound). was [able] to maintain latch without pain to mother protecting the nipple with optimal positioning and latching. After feeding complete mother had a lot of colostrum in the nipple shield. Reviewed comfort measures of healing with a warm, wet washcloth to rinse breast, then leave open to air-dry, good handwashing when or touching the breast/nipples to prevent infection. Mother voiced understanding of skin to skin, stimulating with massage touch, responsive feedings, hand expressed colostrum, talking to to encourage if it has been 2 -2.5 hours since the start of the last , to call if infant does not latch, or if there is discomfort with . Resources used for education were facilitated with the [visual educational handouts/ tool/mom and baby guide], Inpatient/outpatient resources provided with business card, feeding sheet, name written on the communication board, and the mom/baby guide. Mother voiced understanding of information, demonstrated learning and will call if there is a request for assistance. Reported to the Primary RN. [id number] RN checked blood sugar on baby, was 56. Mother attempted to latch baby to her right breast in football with the nipple shield and baby was not interested, no feeding cues seen. Mother to put baby skin to skin, watch for cues and call out if she needs help latching baby. 1245 Mother latched baby to her right breast in football position with the nipple shield. RN advised mother that if she needs to use the shield a 3rd time then she will need to start using a breast pump to protect her milk supply.
--- NOTE | 2024-03-25 16:44 | WPDANLDPN2 ---
Anes-Prog Note L&D Date/Time: 03/25/24 16:44 Neuro status: Neuro function grossly intact. Cardiovascular status: normal Respiratory status: normal Airway patency: baseline Mental status: baseline Post-Op hydration status: normal Vital Signs: Last Vital Signs Temp 36.7 C 03/25/24 11:00 Pulse 118 H 03/25/24 11:00 Resp 18 03/25/24 11:00 BP 109/75 03/25/24 11:00 Pulse Ox 98 03/25/24 11:00 O2 Del Method Room Air 03/25/24 11:00 Pain score (VAS): 4 I/O: Intake & Output 03/25/24 03/25/24 03/25/24 07:59 15:59 23:59 Output Total 1655 450 Balance -1655 -450 Post-procedural complaints: none Patient feedback: Patient satisfied with anesthetic care.
--- NOTE | 2024-03-25 16:45 | PC.NURSE ---
1645 Breast pump provided due to ineffective feeding and nipple shield use x3, mother using hospital breast pump as her own pump is at home. Instructions given on cleaning, care, usage, that there should be no pain, pumping schedule for milk production, collection, and storage of human milk. Patient was assessed for correct placement, flange size (both nipples measured 18mm, using size 21 flange), to pump for comfort and nipple stretching/stimulation for adequate milk production every 3 hours (8 times in 24 hours) 1-2 times at night. Parents are encouraged to record the pumping schedule on the feeding sheet.?Mother voiced understanding of the education shared along with mom/baby guide and the pump measurement, flange fit handout for additional resource information. Reported to the Primary RN.
--- NOTE | 2024-03-25 16:49 | WPDANLDNPN2 ---
Anes-Prog Note L&D-Neuraxial Date/Time: 03/25/24 16:49 Neuraxial medications: epidural PF morphine Opiod-related complaints: pruritis Patient feedback: Patient satisfied with post-operative pain management.
--- NOTE | 2024-03-25 16:51 | WPDANLDPN2 ---
Anes-Prog Note L&D Date/Time: 03/25/24 16:51 Comfortable throughout: labor and section Neuraxial method: epidural Epidural/Spinal procedure site: clean & non-tender Neuro status: Neuro function grossly intact. Cardiovascular status: normal Respiratory status: normal Airway patency: baseline Mental status: baseline Post-Op hydration status: normal Vital Signs: Last Vital Signs Temp 36.7 C 03/25/24 11:00 Pulse 118 H 03/25/24 11:00 Resp 18 03/25/24 11:00 BP 109/75 03/25/24 11:00 Pulse Ox 98 03/25/24 11:00 O2 Del Method Room Air 03/25/24 11:00 Pain score (VAS): 2 I/O: Intake & Output 03/25/24 03/25/24 03/25/24 07:59 15:59 23:59 Output Total 1655 450 Balance -1655 -450 Post-procedural complaints: none Patient feedback: Patient satisfied with anesthetic care.
[2024-03-25] MEDS: HYDROcodone/acetaminophen (*CRX) 5-325 MG TABLET 1 TAB PO (21:55)
[2024-03-26] MEDS: HYDROcodone/acetaminophen (*CRX) 10-325 MG TABLET 1 TAB PO ×4 (03:18→20:02)
[2024-03-26 05:44] VITALS: BP 114/78; PULSE 120; RESP 16; TEMP 37.1; O2SAT 98
[2024-03-26 06:11] LABS: Basophils Percent Auto 0.2 % (0.2-1.2); Immature Granulocyte Absolute 0.09 K/mm3 (0.00-0.031); Immature Granulocyte Percent A 0.5 % (0-0.5); Lymphocytes Absolute Auto 1.25 K/mm3 (0.9-3.2); Lymphocytes Percent Auto 7.3 % (18.3-44.2); Mean Corpuscular HGB Conc 34.5 g/dl (32-36); Mean Corpuscular Hemoglobin 30.2 pg (26-34); Mean Corpuscular Volume 87.6 fl (80-100); Mean Platelet Volume 11.1 fl (7.4-10.4); Monocytes Absolute Auto 0.7 K/mm3 (0.1-0.6); Monocytes Percent Auto 3.9 % (2.6-8.5); Neutrophils Absolute Auto 15.1 K/mm3 (1.3-6.7); Neutrophils Percent Auto 88.1 % (45.5-73.1); Platelet Count Result 200 k/mm3 (150-375); Red Blood Count 3.31 M/mm3 (4.2-5.4); Red Cell Distribution Width 14.7 % (11.5-14.5); White Blood Count 17.1 K/mm3 (4.5-10.0)
[2024-03-26] MEDS: LIDOCAINE 5% PATCH 1 PATCH TRANSDERM (09:13)
[2024-03-26] MEDS: DOCUSATE SODIUM 100 MG CAPSULE PO ×2 (09:14→16:28)
[2024-03-26] MEDS: MULTIVIT/MIN/PREN/FOL AC/IRON TABLET 1 TAB PO (09:14)
[2024-03-26] MEDS: SIMETHICONE 80 MG TAB.CHEW PO ×3 (09:15→16:28)
--- NOTE | 2024-03-26 09:23 | PM.OBPNVD ---
OB - PN: Subj Subjective Date/time seen: 03/26/24 09:23 Interval history: The patient's was transferred to [facility] early this morning secondary to feeding difficulties and possible blood in the stomach. Patient has been upset and crying and as well as her pain level has been increased this morning. Patient comments: incisional pain and tolerating diet baby status: other (To [facility]) OB - PN: Obj Data Labs 03/26/24 05:57 Labs: Laboratory Results - last 24 hr 03/25/24 03/26/24 11:06 05:57 WBC 17.1 H RBC 3.31 L Hgb 10.5 L 10.0 L Hct 30.9 L 29.0 L MCV 87.6 MCH 30.2 MCHC 34.5 RDW 14.7 H Plt Count 200 MPV 11.1 H Immature Gran % (Auto) 0.5 Neut % (Auto) 88.1 H Lymph % (Auto) 7.3 L [place] % (Auto) 3.9 Eos % (Auto) 0.0 Baso % (Auto) 0.2 Lymph # (Auto) 1.25 [place] # (Auto) 0.7 H Eos # (Auto) 0.0 Baso # (Auto) 0.0 Abs Immat Gran (auto) 0.09 H Absolute Neuts (auto) 15.1 H Absolute Nucleated RBC 0.000 Nucleated RBC % 0.0 OB - PN A/P Plan day: 1 Plan: routine care Comments: Hemoglobin stable Pulse elevation likely due to pain level and anxiety will continue to observe Time Spent With Patient Time: Total time spent is greater than 50% in coordination of care (as documented) at patient's floor/unit and/or counseling patient: Exam Narrative: Incision clean dry and intact : Bimanual exam- vagina & uterus: other (Uterus firm, nt @U)
[2024-03-26 09:30] VITALS: BP 102/77; PULSE 119; RESP 18; TEMP 37.1; O2SAT 98
[2024-03-26 12:00] VITALS: BP 110/74; PULSE 119; RESP 18; TEMP 37.2; O2SAT 96
[2024-03-26 16:30] VITALS: BP 112/76; PULSE 109; RESP 18; TEMP 37; O2SAT 97
[2024-03-26] MEDS: ACETAMINOPHEN 325 MG TABLET 650 MG PO (20:02)
[2024-03-26 20:06] VITALS: BP 117/85; PULSE 126; RESP 18; TEMP 37.6; O2SAT 98
[2024-03-27] MEDS: HYDROcodone/acetaminophen (*CRX) 10-325 MG TABLET 1 TAB PO (05:04)
[2024-03-27 07:20] VITALS: BP 115/72; PULSE 104; RESP 18; TEMP 36.2; O2SAT 96
[2024-03-27] MEDS: MULTIVIT/MIN/PREN/FOL AC/IRON TABLET 1 TAB PO (09:11)
[2024-03-27] MEDS: ACETAMINOPHEN 325 MG TABLET 650 MG PO ×3 (09:11→22:39)
[2024-03-27] MEDS: SIMETHICONE 80 MG TAB.CHEW PO ×3 (09:11→16:32)
[2024-03-27] MEDS: DOCUSATE SODIUM 100 MG CAPSULE PO ×2 (09:11→16:32)
[2024-03-27] MEDS: LIDOCAINE 5% PATCH 1 PATCH TRANSDERM (09:22)
--- NOTE | 2024-03-27 09:30 | PC.NURSE ---
Consulted with mother concerning needs and she shared her ability to independently pump without pain. was transferred to [facility]. Mother is pumping occasionally. Reviewed consistent pumping every three hours, at least 8 times a day. Reinforced understanding of milk production, transition of milk, prevention/relief of engorgement, plugged ducts, mastitis, community resources, and when to call a provider using the resource of the feeding sheet along with the mom and baby guide. She has a breast pump at home (Mom [employer]) and declines a WIC referral. Mother voiced understanding of the information shared, is confident to continue effectively pumping at home, when to call for assistance, denies any additional assistance or education at this time. Reported to the Primary RN.
--- NOTE | 2024-03-27 10:11 | P.PNOB_ITS ---
OB - PN: Subj Subjective Date/time seen: 03/27/24 10:11 Interval history: Patient has not had flatus or bowel movement yet and is feeling distended. No nausea or vomiting Patient comments: pain well controlled Percy baby status: NICU OB - PN: Obj Data Labs 03/26/24 05:57 OB - PN A/P Plan day: 2 Plan: routine care Comments: Will try prune juice and if needed will have a suppository Time Spent With Patient Time: Total time spent is greater than 50% in coordination of care (as documented) at patient's floor/unit and/or counseling patient: Exam 2 Narrative: Incision clean dry and intact Resp: Effort & Inspection: normal respiratory effort GI: Inspection: normal to inspection GI Palp: Yes Soft to palpation P ercussion: Yes tympanic to percussion Auscultation: Hypoactive bowel sounds present : Bimanual exam- vagina & uterus: other (Uterus firm, nt @U)
[2024-03-27] MEDS: IBUPROFEN 600 MG TABLET PO ×3 (10:38→22:40)
--- NOTE | 2024-03-27 11:40 | PC.NURSE ---
1104 Patient given prune juice and soda to help with gas relief. 1140 Patient is up and walking in the halls with her mother.
[2024-03-27] MEDS: BISACODYL 10 MG SUPPOSITORY RECTAL (12:40)
[2024-03-27 19:20] VITALS: BP 112/72; PULSE 117; RESP 16; TEMP 36.9; O2SAT 98
[2024-03-28] MEDS: ACETAMINOPHEN 325 MG TABLET 650 MG PO (06:01)
[2024-03-28] MEDS: IBUPROFEN 600 MG TABLET PO (06:01)
--- NOTE | 2024-03-28 07:43 | P.PNOB_ITS ---
OB - PN: Subj Subjective Date/time seen: 03/28/24 07:43 Patient comments: no complaints, pain well controlled, incisional pain, tolerating diet and flatus present baby status: doing well and NICU OB - PN: Obj Data Labs 03/26/24 05:57 OB - PN A/P Plan day: 3 Plan: routine care and discharge home Time Spent With Patient Time: Total time spent is greater than 50% in coordination of care (as documented) at patient's floor/unit and/or counseling patient: Exam 2 Narrative: inc c/d/i : Bimanual exam- vagina & uterus: other (Uterus firm, nt @U)
[2024-03-28 07:45] VITALS: BP 122/87; PULSE 110; RESP 16; TEMP 36.8; O2SAT 98
[2024-03-28] MEDS: SIMETHICONE 80 MG TAB.CHEW PO (08:35)
[2024-03-28] MEDS: MULTIVIT/MIN/PREN/FOL AC/IRON TABLET 1 TAB PO (08:35)
[2024-03-28] MEDS: DOCUSATE SODIUM 100 MG CAPSULE PO (08:35)
--- NOTE | 2024-03-28 09:17 | PC.NURSE ---
While doing patient assessment this AM, pts tylenol and ibuprofen doses were found on bedside table. Patient did not take these until 9:00 this morning.
[2024-03-30 10:46] VITALS: BP 116/66; PULSE 101; RESP 18; TEMP 36.4; O2SAT 99
== END 2024-03-28 09:30 | disposition home or self-care (01) | DRG 784 ==
LOC: ANHLDR 03-25 02:27 → ANHOB2 03-25 04:55
PROVIDERS: Admitting Provider Obstetrics & Gynecology Gynecology; PCP Family Medicine; Visit Provider Obstetrics & Gynecology Gynecology
PROC: (CPT 59514; principal; 2024-03-24 23:55)
DX: O76 Abnormality in fetal heart rate and rhythm complicating labor and delivery (principal); O98.32 Other infections with a predominantly sexual mode of transmission complicating childbirth; O99.834 Other infection carrier state complicating childbirth; O99.284 Endocrine, nutritional and metabolic diseases complicating childbirth; E05.90 Thyrotoxicosis, unspecified without thyrotoxic crisis or storm; A63.0 Anogenital (venereal) warts; O48.0 Post-term pregnancy; Z3A.40 40 weeks gestation of pregnancy; O32.8XX0 Maternal care for other malpresentation of fetus, not applicable or unspecified; O71.89 Other specified obstetric trauma; Z37.0 Single live birth; Z30.2 Encounter for sterilization; Z22.7 Latent tuberculosis
CPT/HCPCS: 36415; 85014; 85018; 85025; 85027; 85610; 85730; 86592; 86703; 86850; 86900; 86901; 88302; 88307; 99465; A9270; G0432; J0456; J0690; J1200; J1885; J2274; J2405; J2590; J3010; J7120

== ENCOUNTER 2024-04-27 20:54 | Inpatient (IN) | payer BC, SELFPAY ==
--- NOTE | ~2024-04-27 | CT_ITS ---
EXAMINATION: CT guided nephrostomy tube ch DATE: 05/06/2024 11:27 INDICATION: Transected distal left ureter. TECHNIQUE: The procedure including the risks, benefits, and alternatives was discussed with the patie nt. Risks discussed included bleeding and infection. The patient understood the risks and benefits an d agreed to proceed. The skin overlying the right kidney was prepped and draped in usual sterile fas hion. Anesthetic was administered with 1% lidocaine subcutaneously. 30 mL Omnipaque 350 was injected into the patient's IV. An 18 gauge trochar needle was inserted into a calyx of the kidney under CT guidance. The needle was exchanged over a wire for 5 Algerian, 7 Algerian, and 8 Algerian dilators and then for an 8.5 Algerian pigtail catheter under CT guidance. The catheter was stitched to the skin. A dress ing was applied. The mA was adjusted according to patient size. Iterative reconstruction technique wa s employed. The dose-length product was 519.29 mGy-cm. There were no immediate complications. FINDINGS: CT images demonstrate the nephrostomy tube in the left renal pelvis. There is a small volum e of ascites. There is a 3.9 x 0.9 cm urinoma in the left adnexa. There is a moderate-sized right ple ural effusion. There is a right internal ureteral stent in expected position. IMPRESSION: 1. Successful CT-guided left nephrostomy tube placement. 2. Small volume of ascites. 3. New moderate-sized right pleural effusion. 4. 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 Reviewed, dictated and finalized at location A.
--- NOTE | ~2024-04-27 | CT_ITS ---
CT of the Abdomen and Pelvis: Indication: Abdominal pain Technique: 2.5 mm axial scans were obtained through the abdomen and pelvis following intravenous adm inistration of 100 cc of Omnipaque 350. Dose reduction technique was used on this scan by utilizing a utomated exposure control and iterative reconstruction technique. The dose-length product (DLP) was 4 78.06 mGy-cm. Findings: Scans through the lung bases are unremarkable. The liver, spleen, pancreas, gallbladder, and adrenal glands are within normal limits. Probable minim al bilateral hydronephrosis. No evidence of aortic aneurysm. No lymphadenopathy. No bowel obstruction or bowel wall thickening. There is no evidence to suggest acute appendicitis. Images through the pelvis were performed. There is a peripherally enhancing fluid collection in the l eft pelvis adjacent uterus measuring proximally 6.3 x 2.2 x 2.4 cm (axial image 143 for example). The re is somewhat heterogeneous appearance of the uterus, especially the lower uterine segment, suggests a recent postoperative change. Large amount of abdominopelvic ascites present. No pneumoperitoneum e vident. Impression: Findings compatible with recent uterine surgery. Correlate with surgical history. 6.3 x 2.2 x 2.4 cm peripheral enhancing left pelvic fluid collection adjacent to uterus. This could r eflect abscess or possibly hydrosalpinx. Large amount of abdominopelvic ascites. Minimal bilateral hydronephrosis. Reviewed, dictated and finalized at [facility]. Impression: Findings compatible with recent uterine surgery. Correlate with surgical histor y. 6.3 x 2.2 x 2.4 cm peripheral enhancing left pelvic fluid collection adjacent t o uterus. This could reflect abscess or possibly hydrosalpinx. Large amount of abdominopelvic ascites. Minimal bilateral hydronephrosis.
--- NOTE | ~2024-04-27 | US_ITS ---
EXAMINATION: US paracentesis abd w/image DATE: 05/01/2024 15:15 INDICATION: Ascites. TECHNIQUE: The procedure and its risks, benefits, and alternatives were discussed with the patient. P otential risks discussed included bleeding and infection. The skin was prepped and draped in sterile fashion. 1% lidocaine was used for local anesthesia. Under ultrasound guidance, a 5 Fr catheter with trochar was advanced into the ascites in the left lower quadrant. Fluid was aspirated. The catheter w as removed, and a dressing was applied. There were no immediate complications. FINDINGS: Ultrasound images demonstrate ascites and the catheter within the fluid. IMPRESSION: 1. Successful ultrasound-guided paracentesis yielding 3800 mL of yellow fluid. Reviewed, dictated and finalized at location A.
--- NOTE | ~2024-04-27 | US_ITS ---
EXAMINATION: US paracentesis abd w/image DATE: 05/04/2024 10:04 INDICATION: Ascites. TECHNIQUE: The skin was prepped and draped in sterile fashion. 1% lidocaine was used for local anesth esia. Under ultrasound guidance, a 5 Fr catheter with trochar was advanced into the ascites in the [facility] lower quadrant. Fluid was aspirated. The catheter was removed, and a dressing was applied. There were no immediate complications. FINDINGS: Ultrasound images demonstrate ascites and the catheter within the fluid. IMPRESSION: 1. Successful ultrasound-guided paracentesis yielding 1100 mL of yellow fluid. Reviewed, dictated and finalized at location A.
--- NOTE | ~2024-04-27 | XR_ITS ---
CHEST RADIOGRAPH CLINICAL HISTORY: r/o plueral effusion . COMPARISON: None available TECHNIQUE: Single portable view of the chest. FINDINGS The cardiomediastinal silhouette is unremarkable. The lungs are clear. IMPRESSION: No focal infiltrate or effusion. Reviewed, dictated and finalized at location A.
--- NOTE | ~2024-04-27 | XR_ITS ---
EXAMINATION: XR retrograde pyelo w/stent BI DATE: 05/05/2024 16:48 INDICATION: Bilateral hydronephrosis. TECHNIQUE: 26 intraoperative fluoroscopic views of the abdomen and pelvis were obtained. I was not pr esent. Fluoroscopy exposure time was 56 seconds. COMPARISON: CT abdomen and pelvis 05/01/2024 FINDINGS: The left-sided retrograde pyelogram demonstrates transection of the distal ureter with urin jyoti. The right-sided retrograde pyelogram demonstrates mild hydronephrosis and hydroureter. There is a right internal ureteral stent in expected position. IMPRESSION: 1. 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 2. Mild right hydronephrosis and hydroureter. Right internal ureteral stent in expected position. Reviewed, dictated and finalized at location A.
--- NOTE | ~2024-04-27 | CT_ITS ---
CLINICAL INDICATION: Follow-up pelvic abscess COMPARISON: 04/28/2024. TECHNIQUE: Multiple contiguous axial images of the abdomen and pelvis were performed following the ad ministration of with 100 mL Omnipaque-350 intravenous contrast The dose-length product (DLP) was 540.14 mGy-cm. Automated exposure control and iterative reconstruction technique were employed. FINDINGS/OBSERVATIONS: Visualized lower thorax: Bibasilar atelectasis, an interval change. The remainder of the bilateral lung bases are clear. The heart is enlarged, without pericardial effusion. Small hiatal hernia is present. Liver: The liver demonstrates homogeneous enhancement and is not enlarged measuring 13 cm in longitudinal di mension. Gallbladder and biliary system: The gallbladder is only minimally distended, and otherwise unremarkable. Pancreas: The pancreas enhances homogeneously without ductal dilatation. Spleen: The spleen enhances homogeneously and is not enlarged measuring 9 cm in longitudinal dimension. Kidneys: The bilateral kidneys enhance symmetrically without redemonstration of hydronephrosis, left greater t padron right. Adrenal glands: Unremarkable. Gastrointestinal tract: Mural thickening within the colon, likely reactive. Appendix: The air-filled appendix is of normal caliber (axial series, images 72 through 77). Vasculature: Unremarkable. Lymph nodes: Limited evaluation secondary to the degree of abdominopelvic ascites. Pelvic structures: The bladder is decompressed. The uterus is anteverted and anteflexed. Redemonstration of a rim-enhancing tubular shaped collection in the left hemipelvis measuring 6.8 x 2 .2 x 2.4 cm (anterior to posterior x medial to lateral x cranial to caudal dimension). This collectio n has increased in size in the anterior to posterior dimension but is otherwise unchanged. Body wall and musculoskeletal: Small fat-containing umbilical hernia. No significant degenerative disease within the lower thoracic or lumbosacral spine. Peritoneum: Increased intra-abdominal ascites (simple fluid), extending into the pelvis. IMPRESSION: Redemonstration of a rim-enhancing tubular-shaped collection in the left hemipelvis which has increas ed in size in a single dimension but is otherwise unchanged. Increased intra-abdominal ascites when compared with previous study. Interval development of bibasilar atelectasis. Interval worsening of the bilateral hydroureteronephrosis with decompression of the patient's bladder . Reviewed, dictated and finalized at location A. IMPRESSION: Redemonstration of a rim-enhancing tubular-shaped collection in the left hemipe lvis which has increased in size in a single dimension but is otherwise unchang ed. Increased intra-abdominal ascites when compared with previous study. Interval development of bibasilar atelectasis. Interval worsening of the bilateral hydroureteronephrosis with decompression of the patient's bladder.
--- NOTE | ~2024-04-27 | US_ITS ---
EXAMINATION: US paracentesis abd w/image DATE: 05/02/2024 13:15 INDICATION: Ascites. TECHNIQUE: The procedure and its risks, benefits, and alternatives were discussed with the patient. P otential risks discussed included bleeding and infection. The skin was prepped and draped in sterile fashion. 1% lidocaine was used for local anesthesia. Under ultrasound guidance, a 5 Fr catheter with trochar was advanced into the ascites in the left lower quadrant. Fluid was aspirated. The catheter w as removed, and a dressing was applied. There were no immediate complications. FINDINGS: Ultrasound images demonstrate ascites and the catheter within the fluid. IMPRESSION: 1. Successful ultrasound-guided paracentesis yielding 1550 mL of yellow fluid. Reviewed, dictated and finalized at location A.
--- NOTE | ~2024-04-27 | CT_ITS ---
EXAMINATION: CT pelvis wo/w con DATE: 05/02/2024 12:57 INDICATION: Left adnexal abscess. TECHNIQUE: Computed tomography (CT) of the pelvis was performed without and with 100 mL Omnipaque 350 intravenous contrast. Automated exposure control and iterative reconstruction technique were employe d. The dose-length product was 395.43 mGy-cm. COMPARISON: CT abdomen and pelvis 05/01/2024 FINDINGS: There are no dilated loops of bowel. There are changes of recent section. The endo metrial complex is thickened to 19 mm. There is a moderate volume of ascites. There is no significant distinct fluid collection in the left adnexa. There is mild lumbar spondylosis. IMPRESSION: 1. Moderate volume of ascites, decreased from 05/01/2024. A repeat paracentesis has since been perform ed. 2. No significant distinct fluid collection in the left adnexa. The drain placement was canceled. 3. Thickened endometrial complex status post section. This finding may be hematoma or infect ion. Retained products of conception are not excluded. Reviewed, dictated and finalized at location A. IMPRESSION: 1. Moderate volume of ascites, decreased from 05/01/2024. A repeat paracentesis has since been performed. 2. No significant distinct fluid collection in the left adnexa. The drain place ment was canceled. 3. Thickened endometrial complex status post section. This finding may be hematoma or infection. Retained products of conception are not excluded.
--- NOTE | ~2024-04-27 | US_ITS ---
US abdomen complete, US retroperitoneal duplex ltd EXAMINATION: US Abdomen Complete INDICATION: Ascites. Acute renal insufficiency. Evaluate for portal vein thrombosis. PROCEDURE: Realtime High Resolution abdomen ultrasound including portal venous Doppler study. COMPARISON: CT dated 05/01/2024 FINDINGS: There are gallstones. Gallbladder wall is thickened. Common bile duct measures 2 mm. There is ascites. There is normal directional flow in the portal vein without evidence for portal venous th rombosis. Liver echotexture within normal limits without focal mass. Pancreas within normal limits. Pancreati c tail is obscured by bowel gas. Spleen is unremarkeable. Renal echotexture is within normal limits bilaterally without hydronephrosis, contour deforming mass or renal stone. Right kidney measures 10.7 cm. Left kidney measures 7.2 cm. Visualized aspects of the aorta and IVC are within normal limits. Portal vein is patent. No sonograph ic Encarnacion's sign indicated by the technologist. IMPRESSION: 1: Gallbladder wall thickening with gallstones. 2: Moderate ascites. 3: No evidence for portal venous thrombosis. Reviewed, dictated and finalized at location A. IMPRESSION: 1: Gallbladder wall thickening with gallstones. 2: Moderate ascites. 3: No evidence for portal venous thrombosis.
--- NOTE | ~2024-04-27 | MR_ITS ---
EXAMINATION: MR abdomen wo con, MR pelvis wo con DATE: 05/05/2024 08:48 INDICATION: Recurrent ascites TECHNIQUE: 1. Magnetic resonance imaging (MRI) of the abdomen was performed without intravenous contrast. Seque nces included coronal T2-weighted SS-FSE, coronal and axial FS 2D-FIESTA, axial STIR FSE, axial T2-we ighted SS-FSE, axial T2-weighted FS SS-FSE, axial diffusion-weighted SE, axial dual-echo T1-weighted FSPGR, and axial and coronal T1-weighted LAVA. 2. MRI of the pelvis was performed without intravenous contrast. Sequences of the pelvis included cor onal T2-weighted SS FSE, coronal T2-weighted SS FS FSE, coronal 2D FIESTA, coronal 2D FIESTA FS, delia nal LAVA-flex, sagittal LAVA, axial T2-weighted SS FSE, axial dual-echo T1-weighted FSPGR, axial 2D F IESTA, axial 2D FIESTA FS, and axial T1 weighted LAVA. COMPARISON: CT dated 05/01/2024 FINDINGS: Heart size is normal. No pericardial or pleural effusion. There are couple small T2 hyperintense hepa tic lesions measuring 1 cm in the left hepatic lobe and 5 mm in the right hepatic lobe, the former wi th what appears to be peripheral puddling of contrast on the prior CT study which would be most consi stent with a hemangioma, the latter remaining low-attenuation on the prior contrast CT which could re present either a cyst or second small hemangioma but too small to definitively characterize. Sludge v ersus gallstones in the dependent aspect of the otherwise normal gallbladder. Spleen, pancreas and bi lateral adrenal glands are normal. There is persistent mild bilateral hydroureteronephrosis which ext ends into the pelvis. The bladder is normal. Postoperative changes with multiple foci of susceptibili ty artifact along the anterior lower uterine segment on the left side of the uterus consistent with r eported recent hysterectomy and bilateral salpingectomies right ovary appears unremarkable. 1.[address] within what is likely the left ovary. Bowels are unremarkable with no obstruction. Moderate amount of ascites throughout the abdomen and pelvis. There is persistent 7.2 x 1.4 x 1.5 cm loculated fluid collection along the left side of the uterus. This appears similar in size and configuration to the initial CT performed on 05/01/2024. This was unable to be clearly distinguish from the adjacent soft t issues on the subsequent CT suggesting interval increase in the attenuation. Of note there is increas ed attenuation of the urine on the intervening precontrast CT which suggests the interval increase in attenuation in the fluid collection could be related to urinoma with extravasated urine in the setti ng of ureteral injury. There is also minimal interval increase in attenuation of the ascites when com paring the earlier postcontrast CT and the subsequent noncontrast CT also suspicious for urine extrav asation. No pathologically enlarged abdominal or pelvic lymphadenopathy. Bones are unremarkable [place] l marrow signal throughout. IMPRESSION: 1. Moderate amount of ascites with no change in size or configuration since 05/01/2024 in a 7.2 x 1.4 x 1.5 cm loculated fluid collection along the left side of the uterus. Review of prior CT imaging dem onstrates peripheral increased attenuation of the loculated fluid collection as well as more subtle i ncreased attenuation of the ascites. This suggests possibility of urine leak potentially from the lef t ureter. Correlate for any levels within the ascites and consider CT urogram for further evaluation. 2. Persistent mild bilateral hydroureteronephrosis which extends into the pelvis where the ureters ta per without evident obstructing stones and suggesting this is likely secondary to inflammation relate d to the recent surgery. 3. Postoperative changes at the uterus consistent with reported prior section and bilateral salpingectomies. Reviewed, dictated and finalized at location B. IMPRESSION: 1. Moderate amount of ascites with no change in size or configuration since 04/09 in a 7.2 x 1.4 x 1.5 cm loculated fluid collection along the left side o f the uterus. Review of prior CT imaging demonstrates peripheral increased atte nuation of the loculated fluid collection as well as more subtle increased atte nuation of the ascites. This suggests possibility of urine leak potentially fro m the left ureter. Correlate for any levels within the ascites and consider CT urogram for further evaluation. 2. Persistent mild bilateral hydroureteronephrosis which extends into the pelvi s where the ureters taper without evident obstructing stones and suggesting thi s is likely secondary to inflammation related to the recent surgery. 3. Postoperative changes at the uterus consistent with reported prior section and bilateral salpingectomies.
--- NOTE | ~2024-04-27 | XR_ITS ---
EXAMINATION: XR cystogram DATE: 05/04/2024 14:06 INDICATION: Ascites after pelvic surgery. TECHNIQUE: Water-soluble contrast was gravity-infused through the patient's Hamm catheter. Multiple fluoroscopic images were obtained. Fluoroscopy exposure time was 0.4 minutes. The total number of carlie ges was 11. COMPARISON: None. FINDINGS: There is no extraluminal leakage of contrast. No ureteral reflux. IMPRESSION: 1. Normal cystogram. Reviewed, dictated and finalized at location A. IMPRESSION: 1. Normal cystogram.
--- OUTSIDE RECORDS SUMMARY | 2024-04-27 20:57 | XMS_ITS | Encounter Summary ---
Author Organization [facility] Address [address] [place] [address] Care Team Providers Care Siphoner Name Role Phone Unavailable Primary Care Provider Erum knowles Encounter Details Date Type Department Care Team (Late st Contact Info) Description 04/26/2024 External Device Data [facility] Provider, Abstract NO ADDRESS ON FILE Social History Tobacco Use Types Packs/Day Years Used Date Smoking Tobacco: Never Smokeless Tobacco: Never Alcohol Use Standard Drinks/Week Comments Not Currently 0 (1 standard drink = 0.6 oz pur e alcohol) Estimated Date of Delivery Comme nts Yes 03/18/2024 Sex and Gender Information Value Date Recorded Sex Assigned at Female 09/08/2023 11:40 AM CDT Legal Sex Female 4:10 PM CDT Gender Identity Female 09/08/2023 11:40 AM CDT Sexual Orientation Straight 09/08/2023 11 :40 AM CDT documented as of this encounter Plan of Treatment Not on file documented as of this encounter Visit Diagnoses Not on filedocumented in this encounter
--- OUTSIDE RECORDS SUMMARY | 2024-04-27 20:57 | XMS_ITS | Clinical Summary ---
Author Organization [place] [id number] [facility] Address [address] [place] [address] Care Team Providers Care Hospital Admissions Officer Name Role Phone Unavailable Primary Care Provider [...] Encounters Date Type Department Care Team Description 04/26/2024 External Device Data [facility] Provider, Abstract 04/26/2024 External Device Data [facility] Provider, Abstract 04/15/2024 External Device Data [facility] Provider, Abstract 04/14/2024 External Device Data [facility] Provider, Abstract 04/11/2024 External Device Data [facility] Provider, Abstract 03/29/2024 External Device Data [facility] Provider, Abstract 03/28/2024 External Device Data [facility] Provider, Abstract 03/01/2024 External Device Data [facility]CTION Provider, Abstract 03/01/2024 External Device Data [facility] Provider, Abstract 02/23/2024 External Device Data [facility] ABSTRACTION Provider, Abstract from Last 3 Months Social History Tobacco [...] of 3 - 19+ 3-dose series) 2004 HPV/Cotest 07/24/2015 INFLUENZA VACCINE (#1) 2023 11/04/2022 CERVICAL CANCER SCREENING 07/09/2025 PAP SMEAR 07/09/2025 07/09/2022 PAP SMEAR 07/09/2025 07/09/2022 HPV VACCINES Aged Out No longer eligi ble based on patient's age to complete this topic PNEUMOCOCCAL VACCINE 0-49 YEARS Aged Out No longer eligible based on patient's age to complete this topic RSV VACCINE (60+ or ) (No Doses Required) Completed Insurance BS [employer]
--- OUTSIDE RECORDS SUMMARY | 2024-04-27 20:57 | XMS_ITS | Encounter Summary ---
Author Organization [facility] Address [address] [place] [address] Care Team Providers Care Restaurant Cashier Name Role Phone Unavailable Primary Care Provider [...]
[2024-04-27 21:21] VITALS: BP 129/92; PULSE 117; RESP 19; TEMP 36.6; O2SAT 97
[2024-04-27 22:27] LABS: Basophils Absolute Auto 0.1 K/mm3 (0.0-0.1); Basophils Percent Auto 0.5 % (0.2-1.2); Eosinophils Percent Auto 0.3 % (0-4.4); Hematocrit 31.5 % (37.0-47.0); Hemoglobin 10.1 g/dL (12.0-15.0); Immature Granulocyte Absolute 0.03 K/mm3 (0.00-0.031); Immature Granulocyte Percent A 0.3 % (0-0.5); Lymphocytes Absolute Auto 1.83 K/mm3 (0.9-3.2); Lymphocytes Percent Auto 16.2 % (18.3-44.2); Mean Corpuscular HGB Conc 32.1 g/dl (32-36); Mean Corpuscular Volume 87.3 fl (80-100); Mean Platelet Volume 10.4 fl (7.4-10.4); Monocytes Absolute Auto 0.7 K/mm3 (0.1-0.6); Monocytes Percent Auto 6.5 % (2.6-8.5); Neutrophils Absolute Auto 8.6 K/mm3 (1.3-6.7); Neutrophils Percent Auto 76.2 % (45.5-73.1); Platelet Count Result 382 k/mm3 (150-375); Red Blood Count 3.61 M/mm3 (4.2-5.4); Red Cell Distribution Width 14.1 % (11.5-14.5); White Blood Count 11.3 K/mm3 (4.5-10.0)
[2024-04-27 22:34] LABS: Add Urine Microscopic? YES; Appearance Urine Cloudy (Clear); Bilirubin Urine Negative (Negative); Blood Urine 2+ (Negative); Color Urine Yellow (Yellow); Glucose Urine UA Negative (Negative); Ketones Urine Trace mg/dL (Negative); Leukocyte Esterase Ur 1+ LEU/UL (Negative); Nitrate Urine Negative (Negative); Protein Urine Trace mg/dL (Negative); Specific Grav Ur 1.018 (1.001-1.035)
[2024-04-27 22:41] LABS: Alanine Aminotransferase 12 U/L (6-35); Albumin Level 3.7 g/dL (3.5-5.1); Alkaline Phosphatase 87 U/L (38-126); Anion Gap 8 mmol/L (4-12); Aspartate Amino Transferase 22 U/L (14-36); Bilirubin,Total 0.3 mg/dL (0.2-1.3); Blood Urea Nitrogen 9 mg/dL (7-17); Calcium 9.1 mg/dL (8.4-10.2); Carbon Dioxide 27 mmol/L (22-30); Chloride 103 mmol/L (98-107); Estimated CRCL calculation 40 ml/min; Estimated Glomerular Filt Rate 31; Glucose 109 mg/dL (65-110); Lipase 43 U/L (23-300); Potassium 3.5 mmol/L (3.4-5.0); Sodium 138 mmol/L (137-145)
[2024-04-27 22:57] LABS: WBC Urine 16-20 /hpf (0-3)
[2024-04-27 22:58] LABS: Squamous Epithelial Cell Urine Many /hpf (Few)
[2024-04-27 23:50] LABS: Pregnancy On Board Control Positive; Urine Pregnancy Test Negative
[2024-04-28] VITALS (9 sets, daily range): BP systolic 96–134; BP diastolic 66–95; PULSE 87–115; RESP 16–18; TEMP 36.5–37.1; O2SAT 97–100; BMI 28.9
--- NOTE | 2024-04-28 00:34 | PC.NURSE ---
Patient asked nursing staff something for pain. Notified EDPs Dr. Zepeda and REGULATORY TECHNICIAN Beth.
--- NOTE | 2024-04-28 00:49 | ED.ABDPAIN ---
HPI - Abdominal Pain General Chief Complaint: Abdominal Pain Stated Complaint: , N/back pain. Post 03/26/24 Time Seen by Provider: 04/28/24 00:41 History of Present Illness HPI narrative: Patient is a 38-year old female who presents to the ER complaints of L flank pain. She reports she approximately 5 weeks and is worried her incision is inspected. Patient denies any increased vaginal bleeding. She reports her pain starts in her left lower abdomen and radiates to her back. Patient denies any recent fevers, chest pain, shortness of breath, vomiting, or passage of clots. She denies any other relevant medical history. Related Data Home Medications ?Medication ?Instructions ?Recorded ?Confirmed ?Last Taken ?Type ferrous sulfate 15 mg iron (75 0.5 ml PO ONCE 02/19/24 03/23/24 03/23/24 History mg)/mL oral drops (Fe-Marlene) vit no.95-ferrous 1 tablet PO DAILY 02/19/24 03/23/24 03/23/24 History fumarate 28 mg-folic acid 800 mcg tablet () valacyclovir 500 mg tablet 500 mg PO DAILY 03/23/24 03/23/24 03/23/24 History Allergies Allergy/AdvReac Type Severity Reaction Status Date / Time minocycline Allergy Rash Verified 04/28/24 00:01 Review of Systems Review of Systems: All systems reviewed & are unremarkable except as noted in HPI and below PMFSH Past Medical History Medical History History of TB (tuberculosis) Treated in 2021 Hyperthyroidism HPV (human papilloma virus) infection Family History Family History Grandparent Cerebrovascular accident Diabetes mellitus Social History Social History Smoking status: Never smoker Second hand tobacco smoke exposure: No Substance use: never Do You Feel Safe in your Home?: Yes Lack of Transportation: No Lack of Food: Never True Current Housing: I Have Housing Concerned About Future Housing: No Difficulty Paying Gas/Electric Bills: No Difficulty Paying for Meds: No Currently Unemployed: No Education: High School Diploma/GED Difficulty w/ Childcare or Family Care: No Spiritual care concerns: No Exam Narrative: GENERAL: Well appearing, well-nourished, non-toxic, in mild distress d/t pain. HEAD: Normocephalic, atraumatic. NECK: Supple. No adenopathy, no masses. RESPIRATORY: Airway patent, respirations nonlabored. Clear to auscultation bilaterally, no rales, rhonchi, wheezing. CARDIOVASCULAR: Regular rate and rhythm without murmurs, rubs, or gallops. Peripheral pulses 2+ and equal bilaterally. ABDOMINAL: Soft, tender with palpation in bilateral lower quadrants, nondistended, no hepatosplenomegaly. Normoactive BS. MUSCULOSKELETAL: Moves all extremities. Strength/ROM intact without gross deformities. SKIN: Warm, dry, normal color. No rashes. Pt's c. section scar is well-approximated, no pus, no redness, no edema, no signs/symptoms of infection NEURO: A&O X3. Speech clear. Cranial nerves II-XII intact. No ataxic movements. PSYCHIATRIC: Appropriate mood and affect. Normal interaction. Course Vital Signs Vital signs: Vital Signs Temperature 36.6 C 04/27/24 21:21 Pulse Rate 117 H 04/27/24 21:21 Respiratory Rate 19 04/27/24 21:21 Blood Pressure 129/92 H 04/27/24 21:21 Pulse Oximetry 97 04/27/24 21:21 Oxygen Delivery Room Air 04/27/24 21:21 Temperature 36.7 C 04/28/24 04:17 Pulse Rate 115 H 04/28/24 04:17 Respiratory Rate 16 04/28/24 04:17 Blood Pressure 124/91 H 04/28/24 04:17 Pulse Oximetry 99 04/28/24 04:17 Oxygen Delivery Room Air 04/27/24 21:21 MDM - Abdominal Pain MDM Narrative Medical decision making narrative: Patient is a 38-year old female who presents to the ER complaints of L flank pain. She reports she approximately 5 weeks and is worried her incision is infected. Patient denies any increased vaginal bleeding. She reports her pain starts in her left lower abdomen and radiates to her back. Patient denies any recent fevers, chest pain, shortness of breath, vomiting, or passage of clots. She denies any other relevant medical history. Labs Ordered: CBC, CMP, lipase, UA, HCG urine Imaging Ordered: CT abdomen/pelvis Medications Ordered: Ceftriaxone 1 g IV, Toradol 15 mg IV, Zofran 4 mg IV, morphine 4 mg IV, Doxycycline IV, Flagyl IV Results: Pt's urinalysis indicates a urinary tract infection. Her CT scan indicates moderate to large volume ascites, pelvic free fluid walled-off collection in the left adnexa 6.9 cm x 2.3 cm possibly developing abscess or dilated tube, bilateral hydronephrosis with obstructing calculus, no bowel obstruction Diagnosis: urinary tract infection, kidney stones, developing abscess in L adnexa, pelvic free fluid, ascites Consults: 0430-spoke with Dr. Andersen, pt's OBGYN, who advises pt be admitted to the hospital. She would like pt started on Ceftriaxone IV, Flagyl IV, and Doxycycline IV. Pt should remain NPO. Patient Education/Shared MDM: Results of lab work and imaging shared with patient. She endorses improvement following pain medication administration. Pt verbalizes understanding and is in agreement with plan for admission. She will be admitted under Dr. Andersen's service. Differential Diagnosis Differential diagnosis: Likely abdominal pain, calculus of kidney, constipation, small bowel obstruction and other (UTI, c. section infection) Lab Data Attestation: I reviewed the patient's lab results. 04/27/24 22:15 04/27/24 22:15 Labs: Lab Results 04/27/24 04/27/24 Range/Units 22:15 22:16 WBC 11.3 H (4.5-10.0) K/mm3 RBC 3.61 L (4.2-5.4) M/mm3 Hgb 10.1 L (12.0-15.0) g/dL Hct 31.5 L (37.0-47.0) % MCV 87.3 (80-100) fl MCH 28.0 (26-34) pg MCHC 32.1 (32-36) g/dl RDW 14.1 (11.5-14.5) % Plt Count 382 H D (150-375) k/mm3 MPV 10.4 (7.4-10.4) fl Immature Gran % (Auto) 0.3 (0-0.5) % Neut % (Auto) 76.2 H (45.5-73.1) % Lymph % (Auto) 16.2 L (18.3-44.2) % [place] % (Auto) 6.5 (2.6-8.5) % Eos % (Auto) 0.3 (0-4.4) % Baso % (Auto) 0.5 (0.2-1.2) % Lymph # (Auto) 1.83 (0.9-3.2) K/mm3 [place] # (Auto) 0.7 H (0.1-0.6) K/mm3 Eos # (Auto) 0.0 (0-0.3) K/mm3 Baso # (Auto) 0.1 (0.0-0.1) K/mm3 Abs Immat Gran (auto) 0.03 (0.00-0.031) K/mm3 Absolute Neuts (auto) 8.6 H (1.3-6.7) K/mm3 Absolute Nucleated RBC 0.000 (0.0-0.012) K/mm3 Nucleated RBC % 0.0 (0.0-0.2) % Sodium 138 (137-145) mmol/L Potassium 3.5 (3.4-5.0) mmol/L Chloride 103 (98-107) mmol/L Carbon Dioxide 27 (22-30) mmol/L Anion Gap 8 (4-12) mmol/L BUN 9 (7-17) mg/dL Creatinine 1.80 H (0.7-1.0) mg/dL Estim Creat Clear Calc 40 ml/min Estimated GFR 31 L (59 - ) Glucose 109 (65-110) mg/dL Calcium 9.1 (8.4-10.2) mg/dL Total Bilirubin 0.3 (0.2-1.3) mg/dL AST 22 (14-36) U/L ALT 12 (6-35) U/L Alkaline Phosphatase 87 (38-126) U/L Total Protein 7.0 (6.3-8.2) g/dL Albumin 3.7 (3.5-5.1) g/dL Lipase 43 (23-300) U/L Urine Color Yellow (Yellow) Urine Appearance Cloudy H (Clear) Urine pH 6.0 (5.0-9.0) Ur Specific [place] 1.018 (1.001-1.035) Urine Protein Trace (Negative) mg/dL Urine Glucose (UA) Negative (Negative) mg/dL Urine Ketones Trace H (Negative) mg/dL Ur Blood (Man) 2+ H (Negative) Urine Nitrate Negative (Negative) Urine Bilirubin Negative (Negative) Urine Urobilinogen 1.0 (<2.0) mg/dL Leukocyte Esterase Rfl 1+ H (Negative) [place]/UL Urine RBC 3-5 H (0-2) /hpf Urine WBC 16-20 H (0-3) /hpf Ur Squamous Epith Cells Many H (Few) /hpf Urine Test Negative Imaging Data Attestation: I personally reviewed and interpreted this imaging study as follows: My impression: Her CT scan indicates moderate to large volume ascites, pelvic free fluid walled-off collection in the left adnexa 6.9 cm x 2.3 cm possibly developing abscess or dilated tube, bilateral hydronephrosis with obstructing calculus, no bowel obstruction. Discharge Plan Discharge Clinical Impression: Abscess, intra-abdominal, postoperative, Urinary tract infection, Status post primary low transverse section, Hydronephrosis with obstructing calculus, Free fluid in pelvis, Ascites Patient Disposition: Still a Patient Condition: Serious Patient Language: Mohawk Prescriptions: New sulfamethoxazole-trimethoprim [Bactrim DS] 800-160 mg tablet 1 tablet PO Q12H 5 Days Qty: 10 0RF No Action ferrous sulfate [Fe-Marlene] 15 mg iron (75 mg)/mL drops 0.5 ml PO ONCE PNV cmb#95-ferrous fumarate-FA [] 28 mg iron- 800 mcg tablet 1 tablet PO DAILY valacyclovir 500 mg tablet 500 mg PO DAILY hydrocodone-acetaminophen 5-325 mg Tablet 1 tablet PO Q3H PRN (Reason: Breakthrough Pain Rated 4-6) Qty: 20 0RF Follow-up/Referrals: Janine,Jimena Adam MD [Primary Care Provider] -
--- OUTSIDE RECORDS SUMMARY | 2024-04-28 00:52 | XMS_ITS | Clinical Summary ---
Author Organization [facility] [place] [id number] [facility] Address [address] [place] [address] Care Team Providers Care Welding Machine Setter Name Role Phone Unavailable Primary Care Provider [...]
--- OUTSIDE RECORDS SUMMARY | 2024-04-28 00:52 | XMS_ITS | Encounter Summary ---
Author Organization [facility] Address [address] [place] [address] Care Team Providers Care Insights Manager Name Role Phone Unavailable Primary Care Provider [...]
--- OUTSIDE RECORDS SUMMARY | 2024-04-28 00:52 | XMS_ITS | Encounter Summary ---
Author Organization [facility] Address [address] [place] [address] Care Team Providers Care Curriculum Assistant Name Role Phone Unavailable Primary Care [...]
[2024-04-28] MEDS: ONDANSETRON INJ 4 MG/2 ML VIAL IV PUSH (00:55)
[2024-04-28] MEDS: MORPHINE SULFATE (*CRX) 4 MG/ML INJ IV PUSH (00:55)
[2024-04-28] MEDS: KETOROLAC 15 MG/ML VIAL (*BKC) (01:45)
[2024-04-28] MEDS: SODIUM CHLORIDE 0.9% IV 1,000 ML 999 ML IV CONT (04:52)
[2024-04-28] MEDS: diphenhydrAMINE HCl INJ 50 MG/ML VIAL 25 MG IV PUSH ×2 (04:54→17:21)
[2024-04-28] MEDS: DOXYCYCLINE 100 MG/NS 100 ML 100 MG/100 ML BAG IVPB ×2 (04:54→17:21)
[2024-04-28 05:08] LABS: Lactic Acid Reflex 0.9 mmol/L (0.7-2.0)
[2024-04-28 05:11] LABS: CRP 1.7 mg/dL (<1.0)
[2024-04-28 05:16] LABS: Partial Thromboplastin Time 26.5 Seconds (22.3-36.8); Prothrombin Time 13.4 Seconds (11.1-14.7)
[2024-04-28] MEDS: metroNIDAZOLE 500 MG/ISO 100ML 500 MG/100 ML BAG 100 MG IVPB ×3 (05:55→19:23)
[2024-04-28] MEDS: SODIUM CHLORIDE 0.9% IV 1,000 ML 125 ML IV CONT ×2 (05:55→12:29)
--- NOTE | 2024-04-28 07:16 | ADMGEN ---
This patient, Devorah Darden, was admitted to [facility] Surg Room 309-01. Patient/family oriented to hospital policies and general routines including ID bracelet, bed and alarms, visiting hours, pain management, procedures, bathroom and other care routines, personal items, smoking policy, room service/diet, and visiting hours. Information on how to activate the Rapid Response Team has been discussed. Patient/Family are encouraged to report perceived risks to care and to ask questions if they do not understand what they are told or what they should do.
--- NOTE | 2024-04-28 11:10 | P.HP_ITS ---
H&P: HPI History of Present Illness Date/Time: 04/28/24 11:10 Chief Complaint: Left TOA Narrative: 38 yo admitted through the ER with left TOA. Patient is 5 weeks s/p LTCS with bilateral salpingectomy. Patient was induced but had no cervical change or ROM. C/section done for intolerance of labor. Patient did well until woke in the night with LLQ pain radiating to her back. Nausea due to the pain. Recieved 4 mg Morphine in ER around 2 am while work up in progress. Patient states she feels tylenol or motrin would be ok for current pain level. No other complaints. No fevers at home. Review of Systems Review of Systems: All systems reviewed & are unremarkable except as noted in HPI and below (HPI) [facility] Past Medical History Medical History (Updated 04/28/24 @ 11:19 by Flori Andersen MD) History of TB (tuberculosis) Treated in 2021 Hyperthyroidism HPV (human papilloma virus) infection Surgical History Surgical History (Updated 04/28/24 @ 11:16 by Flori Andersen MD) Status post bilateral salpingectomy 04/04 Status post primary low transverse section 04/04 Family History Family History Grandparent Cerebrovascular accident Diabetes mellitus Social History Social History Smoking status: Never smoker Second hand tobacco smoke exposure: No Substance use: never Do You Feel Safe in your Home?: Yes Lack of Transportation: No Lack of Food: Never True Current Housing: I Have Housing Concerned About Future Housing: No Difficulty Paying Gas/Electric Bills: No Difficulty Paying for Meds: No Currently Unemployed: No Education: High School Diploma/GED Difficulty w/ Childcare or Family Care: No Spiritual care concerns: No Meds Home Medications and Allergies Home Medications ?Medication ?Instructions ?Recorded ?Confirmed ?Type valacyclovir 500 mg tablet 500 mg PO DAILY PRN itching 03/23/24 04/28/24 History sulfamethoxazole 800 1 tablet PO Q12H 5 days #10 tabs 04/28/24 Rx mg-trimethoprim 160 mg tablet (Bactrim DS) Allergies Allergy/AdvReac Type Severity Reaction Status Date / Time minocycline Allergy Rash Verified 04/28/24 07:26 Vital Signs Vital Signs - 24 hr 04/27/24 21:21 04/28/24 00:00 04/28/24 02:00 Temperature 97.9 F 98.1 F 98.1 F Pulse Rate 117 H 109 H 104 H Respiratory Rate 19 16 16 Blood Pressure 129/92 H 127/95 H 108/83 Pulse Oximetry 97 97 97 Oxygen Delivery Room Air 04/28/24 04:17 04/28/24 05:20 Temperature 98.1 F 98.3 F Pulse Rate 115 H 97 Respiratory Rate 16 16 Blood Pressure 124/91 H 134/81 Pulse Oximetry 99 100 Oxygen Delivery Exam Const: General: healthy appearing, comfortable and no acute distress Nutritional Appearance: well nourished Orientation/consciousness: patient oriented x3 Resp: Effort & Inspection: normal respiratory effort Auscultation: clear to auscultation bilaterally GI: Inspection: normal to inspection, non-distended and scar (well healed) GI Palp: Yes abdominal tenderness (Uterus NT; Pain very isolated to the LLQ with no rebound) and No Guarding due to palpation present (GI) Auscultation: normal bowel sounds : General: Yes deferred (unless needed) H&P: Results Labs Labs: Short CBC 04/27/24 Range/Units 22:15 WBC 11.3 H (4.5-10.0) K/mm3 Hgb 10.1 L (12.0-15.0) g/dL Hct 31.5 L (37.0-47.0) % Plt Count 382 H D (150-375) k/mm3 BMP 04/27/24 22:15 Sodium 138 Potassium 3.5 Chloride 103 Carbon Dioxide 27 BUN 9 Creatinine 1.80 H Glucose 109 Calcium 9.1 Liver Function 04/27/24 Range/Units 22:15 Total Bilirubin 0.3 (0.2-1.3) mg/dL AST 22 (14-36) U/L ALT 12 (6-35) U/L Alkaline Phosphatase 87 (38-126) U/L Albumin 3.7 (3.5-5.1) g/dL Urine 04/27/24 Range/Units 22:16 Urine Color Yellow (Yellow) Urine Appearance Cloudy H (Clear) Urine pH 6.0 (5.0-9.0) Ur Specific [place] 1.018 (1.001-1.035) Urine Protein Trace (Negative) mg/dL Urine Glucose (UA) Negative (Negative) mg/dL Assessment and Plan Assessment and plan (1) TOA (tubo-ovarian abscess): Code(s): N70.93 - Salpingitis and oophoritis, unspecified Status: Acute Assessment and Plan: Left TOA 6.3x2.2x2.4 cm ascites Clinically stable. No evidence of sepsis. Afebrile. VSS. Pain decreased from 0200. WBC 13 (prior pp was 17). H/H stable. Plan ceftriaxone q 24, doxycycline 100 mg BID, and Flagyl 500 mg q 6 hours for 72 hours. If remains clinically stable, will repeat CT scan on Wednesday am. Discussed with patient and her mother that may need radiology to drain or may need surgery. (2) Elevated serum creatinine: Code(s): R79.89 - Other specified abnormal findings of blood chemistry Status: Acute Assessment and Plan: No prior Cr for comparison. All other CMP normal for pp state. Will recheck at 12 hours from initial to see if dehydration is cause/contributing. Received 1 liter bolus and now 125 cc per hour. Will monitor I/O's. Will follow pending second test. May need consult.
--- NOTE | 2024-04-28 11:25 | OBPPTRN ---
Patient transferred to post room # 278 via wheelchair from [facility]. Oriented to unit, room, information board, and security measures. Patient verbalizes understanding.
[2024-04-28] MEDS: ACETAMINOPHEN 500 MG TABLET 1000 MG PO (12:27)
[2024-04-28] MEDS: IBUPROFEN 600 MG TABLET PO (15:28)
[2024-04-28 15:59] LABS: Anion Gap 9 mmol/L (4-12); Blood Urea Nitrogen 8 mg/dL (7-17); Calcium 8.5 mg/dL (8.4-10.2); Carbon Dioxide 22 mmol/L (22-30); Chloride 109 mmol/L (98-107); Estimated CRCL calculation 43 ml/min; Estimated Glomerular Filt Rate 34; Glucose 97 mg/dL (65-110); Potassium 3.8 mmol/L (3.4-5.0); Sodium 140 mmol/L (137-145)
[2024-04-29] MEDS: metroNIDAZOLE 500 MG/ISO 100ML 500 MG/100 ML BAG 100 MG IVPB ×4 (01:20→19:16)
[2024-04-29] MEDS: SODIUM CHLORIDE 0.9% IV 1,000 ML 125 ML IV CONT ×2 (01:28→14:24)
[2024-04-29 04:34] VITALS: BP 110/63; PULSE 85; RESP 16; TEMP 36.6; O2SAT 100
[2024-04-29 05:02] LABS: Basophils Percent Auto 0.6 % (0.2-1.2); Eosinophils Absolute Auto 0.1 K/mm3 (0-0.3); Eosinophils Percent Auto 1.6 % (0-4.4); Hematocrit 29.2 % (37.0-47.0); Hemoglobin 9.1 g/dL (12.0-15.0); Immature Granulocyte Absolute 0.01 K/mm3 (0.00-0.031); Immature Granulocyte Percent A 0.2 % (0-0.5); Lymphocytes Absolute Auto 2.33 K/mm3 (0.9-3.2); Lymphocytes Percent Auto 37.8 % (18.3-44.2); Mean Corpuscular HGB Conc 31.2 g/dl (32-36); Mean Corpuscular Hemoglobin 27.7 pg (26-34); Mean Platelet Volume 10.7 fl (7.4-10.4); Monocytes Absolute Auto 0.6 K/mm3 (0.1-0.6); Monocytes Percent Auto 8.9 % (2.6-8.5); Neutrophils Absolute Auto 3.1 K/mm3 (1.3-6.7); Neutrophils Percent Auto 50.9 % (45.5-73.1); Platelet Count Result 370 k/mm3 (150-375); Red Blood Count 3.28 M/mm3 (4.2-5.4); Red Cell Distribution Width 14.3 % (11.5-14.5); White Blood Count 6.2 K/mm3 (4.5-10.0)
[2024-04-29 05:18] LABS: Anion Gap 5 mmol/L (4-12); Blood Urea Nitrogen 9 mg/dL (7-17); Calcium 8.5 mg/dL (8.4-10.2); Carbon Dioxide 24 mmol/L (22-30); Chloride 111 mmol/L (98-107); Estimated CRCL calculation 44 ml/min; Estimated Glomerular Filt Rate 35; Glucose 86 mg/dL (65-110); Potassium 4.1 mmol/L (3.4-5.0); Sodium 140 mmol/L (137-145)
[2024-04-29] MEDS: diphenhydrAMINE HCl INJ 50 MG/ML VIAL 25 MG IV PUSH ×2 (05:30→17:34)
[2024-04-29] MEDS: DOXYCYCLINE 100 MG/NS 100 ML 100 MG/100 ML BAG IVPB ×2 (05:30→17:35)
[2024-04-29 07:20] VITALS: BP 104/72; PULSE 89; RESP 16; TEMP 36.7; O2SAT 98
--- NOTE | 2024-04-29 08:13 | P.PNOB_ITS ---
COLD ROLLER - A/P Assessment and plan (1) TOA (tubo-ovarian abscess): Code(s): N70.93 - Salpingitis and oophoritis, unspecified Status: Acute (2) Free fluid in pelvis: Code(s): R18.8 - Other ascites Status: Acute (3) Ascites: Code(s): R18.8 - Other ascites Status: Acute (4) Hydronephrosis with obstructing calculus: Code(s): N13.2 - Hydronephrosis with renal and ureteral calculous obstruction Status: Acute (5) Elevated serum creatinine: Code(s): R79.89 - Other specified abnormal findings of blood chemistry Status: Acute Plan wbc now normal. creatinine improved. continue abx Time Spent With Patient Time: Total time spent is greater than 50% in coordination of care (as documented) at patient's floor/unit and/or counseling patient: Time with patient: less than 15 minutes COLD ROLLER- PN:Subj Post-Op Subjective Date/time seen: 04/29/24 08:13 Subjective: patient reports feeling better, patient has no complaints, pain is well controlled and patient is tolerating oral intake Review of Systems 2 Review of Systems: All systems reviewed & are unremarkable except as noted in HPI and below Exam 2 Const: General: cooperative, healthy appearing and comfortable Nutritional Appearance: average body habitus Orientation/consciousness: oriented to person, oriented to place and oriented to time HENMT: Head: normal to inspection Resp: Effort & Inspection: normal respiratory effort Cardio: Rate: regular rate Rhythm: regular rhythm Heart sounds: S1 normal heart sound present and S2 normal heart sound present GI: Inspection: normal to inspection COLD ROLLER - PN: Obj Data Vital Signs Vital Signs: Vital Signs - 24 hr 04/28/24 11:25 04/28/24 11:40 04/28/24 15:30 Temperature 98.8 F 98.4 F Pulse Rate 93 93 100 Respiratory Rate 18 18 Blood Pressure 115/69 96/67 L Pulse Oximetry 97 100 Oxygen Delivery Room Air 04/28/24 15:40 04/28/24 19:20 04/28/24 19:20 Temperature 97.7 F Pulse Rate 100 87 Respiratory Rate 18 Blood Pressure 107/66 Pulse Oximetry 100 Oxygen Delivery Room Air Room Air 04/29/24 04:34 Temperature 98 F Pulse Rate 85 Respiratory Rate 16 Blood Pressure 110/63 Pulse Oximetry 100 Oxygen Delivery Intake/Output Intake/Output: Intake & Output 04/26/24 04/27/24 04/28/24 04/29/24 23:59 23:59 23:59 23:59 Intake Total 3320.8 1545 Output Total 100 700 Balance 3220.8 845 Meds/Results Medications: Active Medications Generic Name Dose Route Start Last Admin Trade Name Freq PRN Reason Stop Dose Admin Acetaminophen 1,000 mg 04/28/24 10:32 04/28/24 12:27 Acetaminophen 500 Mg Tablet PO 1,000 mg Q6H PRN Administration pain 1-5 Diphenhydramine HCl 25 mg 04/28/24 17:00 04/29/24 05:30 Diphenhydramine Hcl Inj 50 Mg/Ml Vial IV PUSH 25 mg Q12H SABI Administration Sodium Chloride 1,000 mls @ 125 mls/hr 04/28/24 04:45 04/29/24 01:28 Normal Saline Iv IV CONT 125 mls/hr .Q8H SABI Administration Doxycycline Hyclate 100 mg in 100 mls @ 100 mls/hr 04/28/24 17:00 04/29/24 06:09 Vibramycin 100 Mg/Ns 100 Ml IVPB 100 mls/hr Q12H SABI Infusion Ceftriaxone Sodium 1 gm in 50 mls @ 100 mls/hr 04/28/24 21:00 04/28/24 21:50 Rocephin 1 Gm/Ns 50 Ml IVPB Infused Q24H SABI Infusion Metronidazole 500 mg in 100 mls @ 100 mls/hr 04/28/24 12:00 04/29/24 07:26 Flagyl 500 Mg/Iso Soln 100 Ml IVPB 100 mls/hr Q6H SABI Administration Ibuprofen 600 mg 04/28/24 10:32 04/28/24 15:28 Ibuprofen 600 Mg Tablet PO 600 mg Q6H PRN Administration pain 1-5 breakthrough Morphine Sulfate 2 mg 04/28/24 04:43 Morphine Sulfate (*Crx) 2 Mg/Ml Inj IV PUSH Q2H PRN Pain Rated 7-10 Ondansetron HCl 4 mg 04/28/24 10:22 Ondansetron Inj 4 Mg/2 Ml Vial IV PUSH Q4H PRN Nausea And Vomiting Radiology Results: ITS Impressions Abdomen/Pelvis CT 04/28/24 06:13 Impression: Findings compatible with recent uterine surgery. Correlate with surgical history. 6.3 x 2.2 x 2.4 cm peripheral enhancing left pelvic fluid collection adjacent to uterus. This could reflect abscess or possibly hydrosalpinx. Large amount of abdominopelvic ascites. Minimal bilateral hydronephrosis. Labs 04/29/24 04:27 04/29/24 04:27 Labs: Laboratory Results - last 24 hr 04/28/24 04/29/24 15:36 04:27 WBC 6.2 RBC 3.28 L Hgb 9.1 L Hct 29.2 L MCV 89.0 MCH 27.7 MCHC 31.2 L RDW 14.3 Plt Count 370 MPV 10.7 H Immature Gran % (Auto) 0.2 Neut % (Auto) 50.9 Lymph % (Auto) 37.8 [place] % (Auto) 8.9 H Eos % (Auto) 1.6 Baso % (Auto) 0.6 Lymph # (Auto) 2.33 [place] # (Auto) 0.6 Eos # (Auto) 0.1 Baso # (Auto) 0.0 Abs Immat Gran (auto) 0.01 Absolute Neuts (auto) 3.1 Absolute Nucleated RBC 0.000 Nucleated RBC % 0.0 Sodium 140 140 Potassium 3.8 4.1 Chloride 109 H 111 H Carbon Dioxide 22 24 Anion Gap 9 5 BUN 8 9 Creatinine 1.68 H 1.64 H Estim Creat Clear Calc 43 44 Estimated GFR 34 L 35 L Glucose 97 86 Calcium 8.5 8.5
[2024-04-29 16:15] VITALS: BP 100/67; PULSE 88; RESP 16; TEMP 36.7; O2SAT 100
[2024-04-29] MEDS: IBUPROFEN 600 MG TABLET PO (16:15)
--- NOTE | 2024-04-29 18:00 | PC.NURSE ---
RN advised MD that patient was given 25mg IV Benadryl and started IV Doxycycline at 1735, pt called out at 1750 and c/o pain and soreness in her upper left arm, IV is in her left AC. RN stopped medication, she had had 20.9 mls of the Doxycycline, RN let the normal saline run through her IV for 2-3 mins and then patient stated the pain had subsided. Per MD discontinue the IV Doxycycline and continue the IV Flagyl Q6hrs and the IV Cetriaxone Q24hrs.
[2024-04-29 19:05] VITALS: BP 106/74; PULSE 95; RESP 16; TEMP 37.2; O2SAT 100
--- NOTE | 2024-04-29 19:56 | PC.NURSE ---
04/29/2024 at 1940 Patient and belongings transferred in wheelchair to room 113. Patient tolerated transfer well. Patient oriented to surroundings and plan of care and states understanding.
[2024-04-29 23:14] VITALS: BP 90/59; PULSE 89; PULSE 90; RESP 16; TEMP 36.9; O2SAT 95; O2SAT 96
[2024-04-30] VITALS (8 sets, daily range): BP systolic 101–119; BP diastolic 63–83; PULSE 87–103; RESP 16–18; TEMP 36.8–37.2; O2SAT 98–100
[2024-04-30] MEDS: SODIUM CHLORIDE 0.9% IV 1,000 ML 125 ML IV CONT ×3 (00:58→18:55)
[2024-04-30] MEDS: metroNIDAZOLE 500 MG/ISO 100ML 500 MG/100 ML BAG 100 MG IVPB ×4 (00:59→18:56)
--- NOTE | 2024-04-30 08:44 | P.PNOB_ITS ---
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 continue abx Time Spent With Patient Time: Total time spent is greater than 50% in coordination of care (as documented) at patient's floor/unit and/or counseling patient: Time with patient: less than 15 minutes MANUFACTURING MACHINE OPERATOR- PN:Subj Post-Op Subjective Date/time seen: 04/30/24 08:44 Subjective: patient reports feeling better, patient has no complaints and pain is well controlled Review of Systems 2 Review of Systems: All systems reviewed & are unremarkable except as noted in HPI and below Exam 2 Const: General: cooperative, healthy appearing and comfortable Nutritional Appearance: average body habitus Orientation/consciousness: oriented to person, oriented to place and oriented to time HENMT: Head: normal to inspection Resp: Effort & Inspection: normal respiratory effort Cardio: Rate: regular rate Rhythm: regular rhythm Heart sounds: S1 normal heart sound present and S2 normal heart sound present GI: Inspection: normal to inspection GI Palp: Yes abdominal tenderness (decreased) MANUFACTURING MACHINE OPERATOR - PN: Obj Data Vital Signs Vital Signs: Vital Signs - 24 hr 04/29/24 16:15 04/29/24 19:05 04/29/24 23:14 Temperature 98.1 F 99.0 F Pulse Rate 88 95 89 Respiratory Rate 16 16 Blood Pressure 100/67 106/74 90/59 L Pulse Oximetry 100 100 95 04/29/24 23:14 04/30/24 07:16 04/30/24 07:20 Temperature 98.4 F 98.4 F Pulse Rate 89 88 Respiratory Rate 16 Blood Pressure 90/59 L 101/63 Pulse Oximetry 96 Intake/Output Intake/Output: Intake & Output 04/27/24 04/28/24 04/29/2425 23:59 23:59 23:59 23:59 Intake Total 3320.8 5260.9 300 Output Total 100 1500 900 Balance 3220.8 3760.9 -600 Meds/Results Medications: Active Medications Generic Name Dose Route Start Last Admin Trade Name Freq PRN Reason Stop Dose Admin Acetaminophen 1,000 mg 04/28/24 10:32 04/28/24 12:27 Acetaminophen 500 Mg Tablet PO 1,000 mg Q6H PRN Administration pain 1-5 Diphenhydramine HCl 25 mg 04/28/24 17:00 04/29/24 17:34 Diphenhydramine Hcl Inj 50 Mg/Ml Vial IV PUSH 25 mg Q12H SABI Administration Sodium Chloride 1,000 mls @ 125 mls/hr 04/28/24 04:45 04/30/24 08:22 Normal Saline Iv IV CONT Not Given .Q8H SABI Ceftriaxone Sodium 1 gm in 50 mls @ 100 mls/hr 04/28/24 21:00 04/29/24 20:52 Rocephin 1 Gm/Ns 50 Ml IVPB 100 mls/hr Q24H SABI Administration Metronidazole 500 mg in 100 mls @ 100 mls/hr 04/28/24 12:00 04/30/24 07:13 Flagyl 500 Mg/Iso Soln 100 Ml IVPB 100 mls/hr Q6H SABI Administration Ibuprofen 600 mg 04/28/24 10:32 04/29/24 16:15 Ibuprofen 600 Mg Tablet PO 600 mg Q6H PRN Administration pain 1-5 breakthrough Morphine Sulfate 2 mg 04/28/24 04:43 Morphine Sulfate (*Crx) 2 Mg/Ml Inj IV PUSH Q2H PRN Pain Rated 7-10 Ondansetron HCl 4 mg 04/28/24 10:22 Ondansetron Inj 4 Mg/2 Ml Vial IV PUSH Q4H PRN Nausea And Vomiting Radiology Results: ITS Impressions Abdomen/Pelvis CT 04/28/24 06:13 Impression: Findings compatible with recent uterine surgery. Correlate with surgical history. 6.3 x 2.2 x 2.4 cm peripheral enhancing left pelvic fluid collection adjacent to uterus. This could reflect abscess or possibly hydrosalpinx. Large amount of abdominopelvic ascites. Minimal bilateral hydronephrosis. Labs 04/29/24 04:27 04/29/24 04:27
--- NOTE | 2024-04-30 22:18 | PC.NURSE ---
04/30/2024 Patient states her upper abdomen is more larger than before she began the antibiotics. Patient is passing gas and has had a bowel movement today. Patient OOB this evening a has showered. Abdomen soft to palpation. Patient states she does have history of gerds. I discussed plan of care with patient and Tere Reddy RN. Mylicon and pepcid IV along with ambulation planned.
[2024-04-30] MEDS: SIMETHICONE 80 MG TAB.CHEW PO (22:29)
[2024-04-30] MEDS: FAMOTIDINE 20 MG/2 ML VIAL IV PUSH (22:29)
[2024-05-01] MEDS: metroNIDAZOLE 500 MG/ISO 100ML 500 MG/100 ML BAG 100 MG IVPB ×4 (01:18→20:06)
[2024-05-01 06:55] VITALS: BP 112/78; PULSE 94; RESP 18; TEMP 37; O2SAT 96
[2024-05-01 06:56] VITALS: BP 112/78; PULSE 94; PULSE 95; O2SAT 96
--- NOTE | 2024-05-01 10:12 | P.PNOB_ITS ---
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 Normal WBC and afebrile. Pain resolved. Will have radiology drain and possibly leave drain in place. Reviewed with patient. (2) Ascites: Code(s): R18.8 - Other ascites Status: Acute Assessment and Plan: Most likely secondary to inflammation from abscess. Will have radiology perform image guided paracentesis. Reviewed with patient that it will be [address] Recheck BMP for Cr and electrolytes. Time Spent With Patient Time: Total time spent is greater than 50% in coordination of care (as documented) at patient's floor/unit and/or counseling patient: Time with patient: 15 - 25 minutes IT SYSTEMS ANALYST CONSULTANT- PN:Joseph Post-Op Subjective Date/time seen: 05/01/24 10:12 Interval history: feels swollen and some trouble taking deep breath pain is gone Subjective: patient reports feeling better and patient is tolerating oral intake Exam 2 Const: General: comfortable and no acute distress Resp: Effort & Inspection: normal respiratory effort GI: Inspection: other (appears distended) GI Palp: No abdominal tenderness and Yes Other GI palpation findings present ( distended) Percussion: Yes Fluid wave present Auscultation: normal bowel sounds IT SYSTEMS ANALYST CONSULTANT - PN: Obj Data Vital Signs Vital Signs: Vital Signs - 24 hr 04/30/24 15:33 04/30/24 15:35 04/30/24 19:05 Temperature 98.9 F Pulse Rate 95 Respiratory Rate 18 Blood Pressure 106/74 Pulse Oximetry 100 Oxygen Delivery 04/30/24 19:05 04/30/24 19:06 04/30/24 23:40 Temperature 98.8 F Pulse Rate 87 87 Respiratory Rate 16 Blood Pressure 107/65 107/65 Pulse Oximetry 100 98 Oxygen Delivery 04/30/24 23:40 04/30/24 23:41 05/01/24 06:55 Temperature 98.3 F Pulse Rate 97 103 H Respiratory Rate 16 Blood Pressure 119/83 119/83 Pulse Oximetry 99 96 Oxygen Delivery 05/01/24 06:55 05/01/24 06:55 05/01/24 06:56 Temperature 98.6 F Pulse Rate 94 95 Respiratory Rate 18 Blood Pressure 112/78 112/78 Pulse Oximetry 96 96 Oxygen Delivery Room Air Intake/Output Intake/Output: Intake & Output 04/28/24 04/29/24 04/30/24 05/01/24 23:59 23:59 23:59 23:59 Intake Total 3320.8 5310.9 3180 700 Output Total 100 1500 2100 800 Balance 3220.8 3810.9 1080 -100 Meds/Results Medications: Active Medications Generic Name Dose Route Start Last Admin Trade Name Freq PRN Reason Stop Dose Admin Acetaminophen 1,000 mg 04/28/24 10:32 04/28/24 12:27 Acetaminophen 500 Mg Tablet PO 1,000 mg Q6H PRN Administration pain 1-5 Diphenhydramine HCl 25 mg 04/30/24 13:18 Diphenhydramine Hcl Inj 50 Mg/Ml Vial IV PUSH Q12H PRN Itching Famotidine 20 mg 05/01/24 09:00 04/30/24 22:29 Famotidine 20 Mg/2 Ml Vial IV PUSH 20 mg Q12HR SABI Administration Sodium Chloride 1,000 mls @ 125 mls/hr 04/28/24 04:45 04/30/24 18:55 Normal Saline Iv IV CONT 125 mls/hr .Q8H SABI Administration Ceftriaxone Sodium 1 gm in 50 mls @ 100 mls/hr 04/28/24 21:00 04/30/24 21:14 Rocephin 1 Gm/Ns 50 Ml IVPB 100 mls/hr Q24H SABI Administration Metronidazole 500 mg in 100 mls @ 100 mls/hr 04/28/24 12:00 05/01/24 08:56 Flagyl 500 Mg/Iso Soln 100 Ml IVPB 100 mls/hr Q6H SABI Administration Ibuprofen 600 mg 04/28/24 10:32 04/29/24 16:15 Ibuprofen 600 Mg Tablet PO 600 mg Q6H PRN Administration pain 1-5 breakthrough Morphine Sulfate 2 mg 04/28/24 04:43 Morphine Sulfate (*Crx) 2 Mg/Ml Inj IV PUSH Q2H PRN Pain Rated 7-10 Ondansetron HCl 4 mg 04/28/24 10:22 Ondansetron Inj 4 Mg/2 Ml Vial IV PUSH Q4H PRN Nausea And Vomiting Simethicone 80 mg 05/01/24 09:00 04/30/24 22:29 Simethicone 80 Mg Tab.Chew PO 80 mg QID SABI Administration Radiology Results: ITS Impressions Abdomen/Pelvis CT 05/01/24 08:18 IMPRESSION: Redemonstration of a rim-enhancing tubular-shaped collection in the left hemipelvis which has increased in size in a single dimension but is otherwise unchanged. Increased intra-abdominal ascites when compared with previous study. Interval development of bibasilar atelectasis. Interval worsening of the bilateral hydroureteronephrosis with decompression of the patient's bladder. Labs 04/29/24 04:27 04/29/24 04:27
[2024-05-01 10:44] LABS: Anion Gap 11 mmol/L (4-12); Blood Urea Nitrogen 6 mg/dL (7-17); Calcium 8.6 mg/dL (8.4-10.2); Carbon Dioxide 18 mmol/L (22-30); Chloride 111 mmol/L (98-107); Estimated CRCL calculation 46 ml/min; Estimated Glomerular Filt Rate 38; Glucose 91 mg/dL (65-110); Potassium 3.7 mmol/L (3.4-5.0); Sodium 140 mmol/L (137-145)
[2024-05-01] MEDS: SODIUM CHLORIDE 0.9% IV 1,000 ML 125 ML IV CONT (13:12)
[2024-05-01 13:20] LABS: Hematocrit 30.3 % (37.0-47.0); Hemoglobin 9.7 g/dL (12.0-15.0); Mean Corpuscular Hemoglobin 27.9 pg (26-34); Mean Corpuscular Volume 87.1 fl (80-100); Mean Platelet Volume 10.5 fl (7.4-10.4); Platelet Count Result 414 k/mm3 (150-375); Red Blood Count 3.48 M/mm3 (4.2-5.4); Red Cell Distribution Width 14.3 % (11.5-14.5); White Blood Count 6.8 K/mm3 (4.5-10.0)
[2024-05-01 13:39] LABS: Prothrombin Time 13.9 Seconds (11.1-14.7)
[2024-05-01 13:40] LABS: Partial Thromboplastin Time 27.8 Seconds (22.3-36.8)
[2024-05-01 15:05] VITALS: BP 103/83; PULSE 94; RESP 18; TEMP 36.6; O2SAT 100
--- NOTE | 2024-05-01 15:30 | PC.NURSE ---
Patient off floor at 1420 to ultrasound for procedure. Patient back to floor at 1505. Patient A&0x4, VSS, and feeling good. Assessment charted.
[2024-05-01 19:24] VITALS: BP 97/63; PULSE 110; RESP 16; TEMP 36.9; O2SAT 99
[2024-05-01] MEDS: ACETAMINOPHEN 500 MG TABLET 1000 MG PO (19:30)
[2024-05-02] VITALS (8 sets, daily range): BP systolic 99–113; BP diastolic 65–79; PULSE 90–119; RESP 14–20; TEMP 36.4–37; O2SAT 97–100
[2024-05-02] MEDS: FAMOTIDINE 20 MG/2 ML VIAL IV PUSH ×3 (00:56→21:42)
[2024-05-02] MEDS: SIMETHICONE 80 MG TAB.CHEW PO ×2 (00:57→19:20)
[2024-05-02] MEDS: metroNIDAZOLE 500 MG/ISO 100ML 500 MG/100 ML BAG 100 MG IVPB ×4 (02:06→21:38)
--- NOTE | 2024-05-02 06:19 | PM.GYNPNOP ---
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 (1) Abscess, intra-abdominal, postoperative: Code(s): T81.43XA - Infection following a procedure, organ and space surgical site, initial encounter; K65.1 - Peritoneal abscess Status: Acute Assessment and Plan: Continue IV abx plan percutaneous drainage today per radiology as they were unable to do yesterday (2) Ascites: Code(s): R18.8 - Other ascites Status: Acute Assessment and Plan: feeling better will observe (3) Elevated serum creatinine: Code(s): R79.89 - Other specified abnormal findings of blood chemistry Status: Acute Assessment and Plan: recheck now Postoperative Procedures: Procedures Operation Date: 05/02/24 11:30 <No data on this case meets the specified criteria> Time Spent With Patient Time: Total time spent is greater than 50% in coordination of care (as documented) at patient's floor/unit and/or counseling patient: Time with patient: less than 15 minutes SIGNALING PROJECT ENGINEER- PN:Subj Post-Op Subjective Date/time seen: 05/02/24 06:19 Interval history: Feeling better post paracentesis no pain Exam Const: General: comfortable and no acute distress GI: Inspection: other (much less distended, soft) GI Palp: No abdominal tenderness SIGNALING PROJECT ENGINEER - PN: Obj Data Vital Signs Vital Signs: Vital Signs - 24 hr 05/01/24 06:55 05/01/24 06:55 05/01/24 06:55 Temperature 98.6 F Pulse Rate 94 Respiratory Rate 18 Blood Pressure 112/78 Pulse Oximetry 96 96 Oxygen Delivery Room Air 05/01/24 06:56 05/01/24 15:05 05/01/24 19:24 Temperature 97.8 F Pulse Rate 95 94 110 H Respiratory Rate 18 16 Blood Pressure 112/78 103/83 Pulse Oximetry 96 100 99 Oxygen Delivery Room Air 05/01/24 19:24 05/02/24 00:10 Temperature 98.4 F 98.4 F Pulse Rate 110 H 97 Respiratory Rate 16 16 Blood Pressure 97/63 L 110/70 Pulse Oximetry 99 98 Oxygen Delivery Intake/Output Intake/Output: Intake & Output 04/29/24 04/30/24 05/01/24 05/02/24 23:59 23:59 23:59 23:59 Intake Total 5310.9 3230 2488 Output Total 1500 2100 5100 Balance 3810.9 1130 -2612 Meds/Results Medications: Active Medications Generic Name Dose Route Start Last Admin Trade Name Freq PRN Reason Stop Dose Admin Acetaminophen 1,000 mg 04/28/24 10:32 05/01/24 19:30 Acetaminophen 500 Mg Tablet PO 1,000 mg Q6H PRN Administration pain 1-5 Diphenhydramine HCl 25 mg 04/30/24 13:18 Diphenhydramine Hcl Inj 50 Mg/Ml Vial IV PUSH Q12H PRN Itching Famotidine 20 mg 05/01/24 09:00 05/02/24 00:56 Famotidine 20 Mg/2 Ml Vial IV PUSH 20 mg Q12HR SABI Administration Sodium Chloride 1,000 mls @ 125 mls/hr 04/28/24 04:45 05/01/24 15:34 Normal Saline Iv IV CONT Not Given .Q8H SABI Ceftriaxone Sodium 1 gm in 50 mls @ 100 mls/hr 04/28/24 21:00 05/02/24 00:57 Rocephin 1 Gm/Ns 50 Ml IVPB 100 mls/hr Q24H SABI Administration Metronidazole 500 mg in 100 mls @ 100 mls/hr 04/28/24 12:00 05/02/24 02:06 Flagyl 500 Mg/Iso Soln 100 Ml IVPB 100 mls/hr Q6H SABI Administration Ibuprofen 600 mg 04/28/24 10:32 04/29/24 16:15 Ibuprofen 600 Mg Tablet PO 600 mg Q6H PRN Administration pain 1-5 breakthrough Morphine Sulfate 2 mg 04/28/24 04:43 Morphine Sulfate (*Crx) 2 Mg/Ml Inj IV PUSH Q2H PRN Pain Rated 7-10 Ondansetron HCl 4 mg 04/28/24 10:22 Ondansetron Inj 4 Mg/2 Ml Vial IV PUSH Q4H PRN Nausea And Vomiting Simethicone 80 mg 05/01/24 09:00 05/02/24 00:57 Simethicone 80 Mg Tab.Chew PO 80 mg QID SABI Administration Radiology Results: ITS Impressions Abdomen/Pelvis CT 05/01/24 08:18 IMPRESSION: Redemonstration of a rim-enhancing tubular-shaped collection in the left hemipelvis which has increased in size in a single dimension but is otherwise unchanged. Increased intra-abdominal ascites when compared with previous study. Interval development of bibasilar atelectasis. Interval worsening of the bilateral hydroureteronephrosis with decompression of the patient's bladder. Paracentesis Ultrasound 05/01/24 17:02 IMPRESSION: 1. Successful ultrasound-guided paracentesis yielding 3800 mL of yellow fluid. Labs 05/01/24 13:06 05/01/24 10:16 Labs: Laboratory Results - last 24 hr 05/01/24 05/01/24 10:16 13:06 WBC 6.8 RBC 3.48 L Hgb 9.7 L Hct 30.3 L MCV 87.1 MCH 27.9 MCHC 32.0 RDW 14.3 Plt Count 414 H MPV 10.5 H PT 13.9 INR 1.0 APTT 27.8 Sodium 140 Potassium 3.7 Chloride 111 H Carbon Dioxide 18 L Anion Gap 11 BUN 6 L Creatinine 1.54 H Estim Creat Clear Calc 46 Estimated GFR 38 L Glucose 91 Calcium 8.6
[2024-05-02 07:41] LABS: Anion Gap 4 mmol/L (4-12); Blood Urea Nitrogen 5 mg/dL (7-17); Calcium 8.4 mg/dL (8.4-10.2); Carbon Dioxide 23 mmol/L (22-30); Chloride 111 mmol/L (98-107); Estimated CRCL calculation 50 ml/min; Estimated Glomerular Filt Rate 41; Glucose 89 mg/dL (65-110); Potassium 3.8 mmol/L (3.4-5.0); Sodium 138 mmol/L (137-145)
--- NOTE | 2024-05-02 12:05 | PC.NURSE ---
Pt taken down to surgery per stretcher.
--- NOTE | 2024-05-02 12:21 | WPDMODSED ---
Moderate Sedation Note-Pt Data Patient Data Diagnosis: Left adnexal abscess. Present Complaint: Left adnexal abscess. Procedure to be performed/Plan: CT-guided left adnexal abscess drainage. Allergies Allergy/AdvReac Type Severity Reaction Status Date / Time minocycline Allergy Rash Verified 04/28/24 07:26 Home Medications ?Medication ?Instructions ?Recorded ?Confirmed ?Type valacyclovir 500 mg tablet 500 mg PO DAILY PRN itching 03/23/24 04/28/24 History sulfamethoxazole 800 1 tablet PO Q12H 5 days #10 tabs 04/28/24 Rx mg-trimethoprim 160 mg tablet (Bactrim DS) Current Medications: Active Medications Acetaminophen (Acetaminophen 500 Mg Tablet) 1,000 mg PO Q6H PRN PRN Reason: pain 1-5 Last Admin: 05/01/24 19:30 Dose: 1,000 mg Diphenhydramine HCl (Diphenhydramine Hcl Inj 50 Mg/Ml Vial) 25 mg IV PUSH Q12H PRN PRN Reason: Itching Famotidine (Famotidine 20 Mg/2 Ml Vial) 20 mg IV PUSH Q12HR [facility] Last Admin: 05/02/24 09:40 Dose: 20 mg Sodium Chloride (Normal Saline Iv) 1,000 mls @ 125 mls/hr IV CONT .Q8H [facility] Last Admin: 05/01/24 15:34 Dose: Not Given Ceftriaxone Sodium (Rocephin 1 Gm/Ns 50 Ml) 1 gm in 50 mls @ 100 mls/hr IVPB Q24H [facility] Last Admin: 05/02/24 00:57 Dose: 100 mls/hr Metronidazole (Flagyl 500 Mg/Iso Soln 100 Ml) 500 mg in 100 mls @ 100 mls/hr IVPB Q6H [facility] Last Admin: 05/02/24 08:23 Dose: 100 mls/hr Ibuprofen (Ibuprofen 600 Mg Tablet) 600 mg PO Q6H PRN PRN Reason: pain 1-5 breakthrough Last Admin: 04/29/24 16:15 Dose: 600 mg Morphine Sulfate (Morphine Sulfate (*Crx) 2 Mg/Ml Inj) 2 mg IV PUSH Q2H PRN PRN Reason: Pain Rated 7-10 Ondansetron HCl (Ondansetron Inj 4 Mg/2 Ml Vial) 4 mg IV PUSH Q4H PRN PRN Reason: Nausea And Vomiting Simethicone (Simethicone 80 Mg Tab.Chew) 80 mg PO QID SABI Last Admin: 05/02/24 09:31 Dose: Not Given Sedation/Anesthesia: No previous sedation/anesthesia problems (including family history). [facility] Past Medical History Medical History (Updated 04/28/24 @ 11:19 by Flori Andersen MD) History of TB (tuberculosis) Treated in 2021 Hyperthyroidism HPV (human papilloma virus) infection Surgical History Surgical History (Updated 04/28/24 @ 11:16 by Flori Andersen MD) Status post bilateral salpingectomy 04/04 Status post primary low transverse section 04/04 Family History Family History Grandparent Cerebrovascular accident Diabetes mellitus Social History Social History Smoking status: Never smoker Second hand tobacco smoke exposure: No Substance use: never Do You Feel Safe in your Home?: Yes Lack of Transportation: No Lack of Food: Never True Current Housing: I Have Housing Concerned About Future Housing: No Difficulty Paying Gas/Electric Bills: No Difficulty Paying for Meds: No Currently Unemployed: No Education: High School Diploma/GED Difficulty w/ Childcare or Family Care: No Spiritual care concerns: No Mod Sed Physical Exam Physical Exam Pre Procedural Exam: Normal: Appearance, Lungs, Heart Rate and Heart Rhythm and Variation: Abdomen (Mild tenderness.) Hours since solid foods: 12 Hours since liquid intake: 12 Mallampati Classification: class II Internal Medicine - PN: Obj Da Vital Signs Vital Signs: Vital Signs - 24 hr 05/01/24 15:05 05/01/24 19:24 05/01/24 19:24 Temperature 36.6 C 36.9 C Pulse Rate 94 110 H 110 H Respiratory Rate 18 16 16 Blood Pressure 103/83 97/63 L Pulse Oximetry 100 99 99 Oxygen Delivery Room Air 05/02/24 00:10 05/02/24 07:27 05/02/24 08:20 Temperature 36.9 C 36.4 C L Pulse Rate 97 92 Respiratory Rate 16 16 Blood Pressure 110/70 108/72 Pulse Oximetry 98 99 Oxygen Delivery Room Air 05/02/24 11:41 Temperature 36.6 C Pulse Rate 90 Respiratory Rate 14 Blood Pressure 99/67 L Pulse Oximetry 98 Oxygen Delivery Intake/Output Intake/Output: Intake & Output 04/29/24 04/30/24 05/01/24 05/02/24 23:59 23:59 23:59 23:59 Intake Total 5310.9 3230 2488 100 Output Total 1500 2100 5100 Balance 3810.9 1130 -2612 100 Meds/Results Medications: Active Medications Generic Name Dose Route Start Last Admin Trade Name Freq PRN Reason Stop Dose Admin Acetaminophen 1,000 mg 04/28/24 10:32 05/01/24 19:30 Acetaminophen 500 Mg Tablet PO 1,000 mg Q6H PRN Administration pain 1-5 Diphenhydramine HCl 25 mg 04/30/24 13:18 Diphenhydramine Hcl Inj 50 Mg/Ml Vial IV PUSH Q12H PRN Itching Famotidine 20 mg 05/01/24 09:00 05/02/24 09:40 Famotidine 20 Mg/2 Ml Vial IV PUSH 20 mg Q12HR SABI Administration Sodium Chloride 1,000 mls @ 125 mls/hr 04/28/24 04:45 05/01/24 15:34 Normal Saline Iv IV CONT Not Given .Q8H SABI Ceftriaxone Sodium 1 gm in 50 mls @ 100 mls/hr 04/28/24 21:00 05/02/24 00:57 Rocephin 1 Gm/Ns 50 Ml IVPB 100 mls/hr Q24H SABI Administration Metronidazole 500 mg in 100 mls @ 100 mls/hr 04/28/24 12:00 05/02/24 08:23 Flagyl 500 Mg/Iso Soln 100 Ml IVPB 100 mls/hr Q6H SABI Administration Ibuprofen 600 mg 04/28/24 10:32 04/29/24 16:15 Ibuprofen 600 Mg Tablet PO 600 mg Q6H PRN Administration pain 1-5 breakthrough Morphine Sulfate 2 mg 04/28/24 04:43 Morphine Sulfate (*Crx) 2 Mg/Ml Inj IV PUSH Q2H PRN Pain Rated 7-10 Ondansetron HCl 4 mg 04/28/24 10:22 Ondansetron Inj 4 Mg/2 Ml Vial IV PUSH Q4H PRN Nausea And Vomiting Simethicone 80 mg 05/01/24 09:00 05/02/24 09:31 Simethicone 80 Mg Tab.Chew PO Not Given QID [facility] Radiology Results: ITS Impressions Abdomen/Pelvis CT 05/01/24 08:18 IMPRESSION: Redemonstration of a rim-enhancing tubular-shaped collection in the left hemipelvis which has increased in size in a single dimension but is otherwise unchanged. Increased intra-abdominal ascites when compared with previous study. Interval development of bibasilar atelectasis. Interval worsening of the bilateral hydroureteronephrosis with decompression of the patient's bladder. Paracentesis Ultrasound 05/01/24 17:02 IMPRESSION: 1. Successful ultrasound-guided paracentesis yielding 3800 mL of yellow fluid. Labs 05/01/24 13:06 05/02/24 07:23 Labs: Laboratory Results - last 24 hr 05/01/24 05/02/24 13:06 07:23 WBC 6.8 RBC 3.48 L Hgb 9.7 L Hct 30.3 L MCV 87.1 MCH 27.9 MCHC 32.0 RDW 14.3 Plt Count 414 H MPV 10.5 H PT 13.9 INR 1.0 APTT 27.8 Sodium 138 Potassium 3.8 Chloride 111 H Carbon Dioxide 23 Anion Gap 4 BUN 5 L Creatinine 1.42 H Estim Creat Clear Calc 50 Estimated GFR 41 L Glucose 89 Calcium 8.4 ASA Classification/Sedation ASA Classification/Sedation ASA Class: III Emergent: No Risks: Risks, benefits and alternatives explained and patient/family accepted plan for sedation. Patient re-evaluated immediately prior to sedation.
--- NOTE | 2024-05-02 13:14 | SUR.OPER ---
I went to the CT department in order to assist with a CT guided drain procedure. A timeout was called for the procedure and VORB was given for moderate sedation medications. After the last CT images were taken it was decided by the radiologist that the procedure was no longer needed. I wasted the medications which I had already drawn up in the appropriate receptacles and returned the rest of the medication to pharmacy per protocol.
--- NOTE | 2024-05-02 13:16 | PC.NURSE ---
Pt back from surgery
--- NOTE | 2024-05-02 15:10 | PC.NURSE ---
Dr. Andersen notified of test results, orders recieved to consult the hospitalist, continue IV antibiotics and pt may have a regular diet. Consult put in and hospitalist called, message was left.
[2024-05-02] MEDS: ACETAMINOPHEN 500 MG TABLET 1000 MG PO (23:14)
[2024-05-03] VITALS (7 sets, daily range): BP systolic 84–113; BP diastolic 63–73; PULSE 92–132; RESP 16–20; TEMP 36.6–38.8; O2SAT 97–100
[2024-05-03] MEDS: IBUPROFEN 600 MG TABLET PO ×2 (00:30→23:25)
[2024-05-03 01:12] LABS: Basophils Percent Auto 0.4 % (0.2-1.2); Eosinophils Absolute Auto 0.1 K/mm3 (0-0.3); Eosinophils Percent Auto 0.9 % (0-4.4); Hematocrit 29.4 % (37.0-47.0); Hemoglobin 9.7 g/dL (12.0-15.0); Immature Granulocyte Absolute 0.04 K/mm3 (0.00-0.031); Immature Granulocyte Percent A 0.4 % (0-0.5); Lymphocytes Absolute Auto 0.75 K/mm3 (0.9-3.2); Lymphocytes Percent Auto 8.4 % (18.3-44.2); Mean Corpuscular Volume 84.7 fl (80-100); Mean Platelet Volume 10.2 fl (7.4-10.4); Monocytes Absolute Auto 0.1 K/mm3 (0.1-0.6); Monocytes Percent Auto 1.1 % (2.6-8.5); Neutrophils Absolute Auto 7.9 K/mm3 (1.3-6.7); Neutrophils Percent Auto 88.8 % (45.5-73.1); Platelet Count Result 348 k/mm3 (150-375); Red Blood Count 3.47 M/mm3 (4.2-5.4); Red Cell Distribution Width 14.4 % (11.5-14.5); White Blood Count 8.9 K/mm3 (4.5-10.0)
[2024-05-03 01:23] LABS: Alanine Aminotransferase 12 U/L (6-35); Alkaline Phosphatase 73 U/L (38-126); Anion Gap 8 mmol/L (4-12); Aspartate Amino Transferase 22 U/L (14-36); Bilirubin,Total 0.6 mg/dL (0.2-1.3); Blood Urea Nitrogen 4 mg/dL (7-17); Calcium 8.4 mg/dL (8.4-10.2); Carbon Dioxide 20 mmol/L (22-30); Chloride 109 mmol/L (98-107); Estimated CRCL calculation 49 ml/min; Estimated Glomerular Filt Rate 40; Glucose 109 mg/dL (65-110); Potassium 3.3 mmol/L (3.4-5.0); Sodium 137 mmol/L (137-145)
[2024-05-03] MEDS: metroNIDAZOLE 500 MG/ISO 100ML 500 MG/100 ML BAG 100 MG IVPB ×4 (03:13→21:25)
--- NOTE | 2024-05-03 07:37 | P.PNOB_ITS ---
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 Afebrile except 102 x 30 min at midnight. WBC still normal. Uncertain what caused that temp. Will continue antibiotics as temp was so elevated. (2) Ascites: Code(s): R18.8 - Other ascites Status: Acute Assessment and Plan: After paracentesis, urine output adequate but low normal. Will give 1 liter LR at 200 cc/hr. and observe. Cr continues to slowly decrease. Hospitalist consult placed for continued ascites but they refused to see her and told RN they didn't see patients in OB. As seems improved today, will continue to observe. If seems to be recurring ascites today, will insist on consultation with gravity prospecting supervisor. Postoperative Procedures: Procedures Operation Date: 05/02/24 11:30 <No data on this case meets the specified criteria> Time Spent With Patient Time: Total time spent is greater than 50% in coordination of care (as documented) at patient's floor/unit and/or counseling patient: Time with patient: 15 - 25 minutes FREIGHT ELEVATOR ERECTOR- PN:Subj Post-Op Subjective Date/time seen: 05/03/24 07:37 Interval history: Feeling better post paracentesis. Not feeling full or pressure. Pain fully resolved. Normal BM's. At midnight had about 45 min of feeling chills, nausea, and fever spiked. Patient threw up and then all symptoms resolved. Patient felt like her dinner from [employer] was upsetting her stomach all evening. Subjective: patient reports feeling better and patient has no complaints Exam 2 Const: General: healthy appearing, comfortable and no acute distress Resp: Effort & Inspection: normal respiratory effort Auscultation: clear to auscultation bilaterally GI: Inspection: normal to inspection and incision (well healed) GI Palp: No abdominal tenderness, Yes Soft to palpation and No Ascites present (no fluid wave, nondistended) Auscultation: normal bowel sounds : Bimanual exam- vagina & uterus: non-tender FREIGHT ELEVATOR ERECTOR - PN: Obj Data Vital Signs Vital Signs: Vital Signs - 24 hr 05/02/24 08:20 05/02/24 11:41 05/02/24 14:44 Temperature 97.5 F L 98 F 98.6 F Pulse Rate 92 90 93 Respiratory Rate 16 14 16 Blood Pressure 108/72 99/67 L 101/76 Pulse Oximetry 99 98 98 Oxygen Delivery 05/02/24 19:20 05/02/24 19:24 05/02/24 22:50 Temperature 97.9 F 98.2 F Pulse Rate 92 92 119 H Respiratory Rate 18 18 20 Blood Pressure 113/75 109/79 Pulse Oximetry 100 100 100 Oxygen Delivery Room Air Room Air 05/02/24 22:55 05/03/24 00:09 05/03/24 00:20 Temperature 98.2 F 102 F H 102 F H Pulse Rate 119 H 132 H 132 H Respiratory Rate 20 20 20 Blood Pressure 106/65 106/65 106/65 Pulse Oximetry 97 97 97 Oxygen Delivery Room Air 05/03/24 00:30 05/03/24 01:00 05/03/24 07:28 Temperature 102 F H 98.9 F Pulse Rate Respiratory Rate Blood Pressure Pulse Oximetry Oxygen Delivery Room Air 05/03/24 07:28 Temperature 97.9 F Pulse Rate 98 Respiratory Rate 18 Blood Pressure 84/63 L Pulse Oximetry 98 Oxygen Delivery Intake/Output Intake/Output: Intake & Output 04/30/24 05/01/24 05/02/24 05/03/24 23:59 23:59 23:59 23:59 Intake Total 3230 2488 1265 Output Total 2100 5100 2950 200 Balance 1130 -2612 -1685 -200 Meds/Results Medications: Active Medications Generic Name Dose Route Start Last Admin [facility] PRN Reason Stop Dose Admin Acetaminophen 1,000 mg 04/28/24 10:32 05/02/24 23:14 Acetaminophen 500 Mg Tablet PO 1,000 mg Q6H PRN Administration pain 1-5 Diphenhydramine HCl 25 mg 04/30/24 13:18 Diphenhydramine Hcl Inj 50 Mg/Ml Vial IV PUSH Q12H PRN Itching Famotidine 20 mg 05/01/24 09:00 05/02/24 21:42 Famotidine 20 Mg/2 Ml Vial IV PUSH 20 mg Q12HR SABI Administration Hydroxyzine HCl 25 mg 05/03/24 02:27 Hydroxyzine Hcl 25 Mg Tablet PO Q6H PRN Anxiety Sodium Chloride 1,000 mls @ 125 mls/hr 04/28/24 04:45 05/01/24 15:34 Normal Saline Iv IV CONT Not Given .Q8H SABI Ceftriaxone Sodium 1 gm in 50 mls @ 100 mls/hr 04/28/24 21:00 05/03/24 01:08 Rocephin 1 Gm/Ns 50 Ml IVPB 100 mls/hr Q24H SABI Administration Metronidazole 500 mg in 100 mls @ 100 mls/hr 04/28/24 12:00 05/03/24 03:13 Flagyl 500 Mg/Iso Soln 100 Ml IVPB 100 mls/hr Q6H SABI Administration Lactated Ringer's 1,000 mls @ 200 mls/hr 05/03/24 07:45 Lr - Lactated Ringers Iv IV CONT .Q5H SABI Ibuprofen 600 mg 04/28/24 10:32 05/03/24 00:30 Ibuprofen 600 Mg Tablet PO 600 mg Q6H PRN Administration pain 1-5 breakthrough Morphine Sulfate 2 mg 04/28/24 04:43 Morphine Sulfate (*Crx) 2 Mg/Ml Inj IV PUSH Q2H PRN Pain Rated 7-10 Ondansetron HCl 4 mg 04/28/24 10:22 Ondansetron Inj 4 Mg/2 Ml Vial IV PUSH Q4H PRN Nausea And Vomiting Simethicone 80 mg 05/01/24 09:00 05/02/24 22:00 Simethicone 80 Mg Tab.Chew PO Not Given QID [facility] Radiology Results: ITS Impressions Abdomen/Pelvis CT 05/01/24 08:18 IMPRESSION: Redemonstration of a rim-enhancing tubular-shaped collection in the left hemipelvis which has increased in size in a single dimension but is otherwise unchanged. Increased intra-abdominal ascites when compared with previous study. Interval development of bibasilar atelectasis. Interval worsening of the bilateral hydroureteronephrosis with decompression of the patient's bladder. Paracentesis Ultrasound 05/02/24 13:19 IMPRESSION: 1. Successful ultrasound-guided paracentesis yielding 1550 mL of yellow fluid. Pelvis CT 05/02/24 13:20 IMPRESSION: 1. Moderate volume of ascites, decreased from 05/01/2024. A repeat paracentesis has since been performed. 2. No significant distinct fluid collection in the left adnexa. The drain placement was canceled. 3. Thickened endometrial complex status post section. This finding may be hematoma or infection. Retained products of conception are not excluded. Labs 05/03/24 01:06 05/03/24 01:06 Labs: Laboratory Results - last 24 hr 05/02/24 05/03/24 07:23 01:06 WBC 8.9 RBC 3.47 L Hgb 9.7 L Hct 29.4 L MCV 84.7 MCH 28.0 MCHC 33.0 RDW 14.4 Plt Count 348 MPV 10.2 Immature Gran % (Auto) 0.4 Neut % (Auto) 88.8 H Lymph % (Auto) 8.4 L Baxter % (Auto) 1.1 L Eos % (Auto) 0.9 Baso % (Auto) 0.4 Lymph # (Auto) 0.75 L Baxter # (Auto) 0.1 Eos # (Auto) 0.1 Baso # (Auto) 0.0 Abs Immat Gran (auto) 0.04 H Absolute Neuts (auto) 7.9 H Absolute Nucleated RBC 0.000 Nucleated RBC % 0.0 Sodium 138 137 Potassium 3.8 3.3 L Chloride 111 H 109 H Carbon Dioxide 23 20 L Anion Gap 4 8 BUN 5 L 4 L Creatinine 1.42 H 1.45 H Estim Creat Clear Calc 50 49 Estimated GFR 41 L 40 L Glucose 89 109 Calcium 8.4 8.4 Total Bilirubin 0.6 AST 22 ALT 12 Alkaline Phosphatase 73 Total Protein 6.0 L Albumin 3.0 L
[2024-05-03] MEDS: LACTATED RINGERS 1,000 ML 200 ML IV CONT (07:43)
[2024-05-03] MEDS: FAMOTIDINE 20 MG/2 ML VIAL IV PUSH ×2 (09:37→21:37)
[2024-05-03] MEDS: SIMETHICONE 80 MG TAB.CHEW PO ×3 (09:38→21:25)
--- NOTE | 2024-05-03 13:47 | PC.NURSE ---
Hospitalist Echo Barrera, here to see pt. She will put orders in on patient
--- NOTE | 2024-05-03 13:52 | PM.IMCN ---
Assessment and Plan Assessment and plan (1) Free fluid in pelvis: Code(s): R18.8 - Other ascites Status: Acute (2) Ascites: Code(s): R18.8 - Other ascites Status: Acute (3) Elevated serum creatinine: Code(s): R79.89 - Other specified abnormal findings of blood chemistry Status: Acute (4) Abscess, intra-abdominal, postoperative: Code(s): T81.43XA - Infection following a procedure, organ and space surgical site, initial encounter; K65.1 - Peritoneal abscess Status: Acute Plan - Paracentesis done twice-no growth aerobic or anaerobic - spiked a fever last night- BC collected-pending CT done on 05/02: IMPRESSION: 1. Moderate volume of ascites, decreased from 05/01/2024. A repeat paracentesis has since been performed. 2. No significant distinct fluid collection in the left adnexa. The drain placement was canceled. 3. Thickened endometrial complex status post section. This finding may be hematoma or infection. Retained products of conception are not excluded. - will continue for now with Rocephin/flagyl for now - repeat abd ultrasound in am to re assess the need for paracentesis - repeat labs in am- trend wbc, hg/hct - will continue IV fluids -finish current bag, then 100 ml/h. oK to marbella lock for the night Cr/BUN 1.8/9 when admitted-so it is improving but unsure what her baseline is - will recheck kidney function in am - abd ultrasound in am- with paracentesis if needed-ordered HPI Date of Consult Consult date: 05/03/24 Requesting Physician: Flori Andersen MD Primary Care Provider: Jimena MehtaMD Consult Narrative Reason for consult: med mngmnt Narrative: 38 yo admitted through the ER with left TOA. She is 5 weeks s/p LTCS with bilateral salpingectomy. Had couple paracentesis- initial 4l then 1.5 l paracentesis. Specimen was collected and no bacterial growth. Pt spiked a fever last night. BC was collected. Pt is on IV antibiotics. Pt is seen and examined. She is on IV antibiotics, denies nausea and vomiting. If ultrasound is stable, and no fever, WBC stable -should be ok to be discharged with PO antibiotics to complete the course. Review of Systems Review of Systems: All systems reviewed & are unremarkable except as noted in HPI and below Eyes: Eyes: Denies blurry vision ENT: Reports Normal hearing present Cardiovascular: Cardiovascular: Denies chest pain Respiratory: Respiratory: Denies chest congestion Gastrointestinal: Gastrointestinal: Denies abdominal pain Genitourinary: Genitourinary: Denies hematuria Psychiatric: Psychiatric: Denies anxiety [facility] Past Medical History Medical History (Updated 04/28/24 @ 11:19 by Flori Andersen MD) History of TB (tuberculosis) Treated in 2021 Hyperthyroidism HPV (human papilloma virus) infection Surgical History Surgical History (Updated 04/28/24 @ 11:16 by Flori Andersen MD) Status post bilateral salpingectomy 04/04 Status post primary low transverse section 04/04 Family History Family History Grandparent Cerebrovascular accident Diabetes mellitus Social History Social History Smoking status: Never smoker Second hand tobacco smoke exposure: No Substance use: never Do You Feel Safe in your Home?: Yes Lack of Transportation: No Lack of Food: Never True Current Housing: I Have Housing Concerned About Future Housing: No Difficulty Paying Gas/Electric Bills: No Difficulty Paying for Meds: No Currently Unemployed: No Education: High School Diploma/GED Difficulty w/ Childcare or Family Care: No Spiritual care concerns: No Meds Home Medications and Allergies Home Medications ?Medication ?Instructions ?Recorded ?Confirmed ?Type valacyclovir 500 mg tablet 500 mg PO DAILY PRN itching 03/23/24 04/28/24 History sulfamethoxazole 800 1 tablet PO Q12H 5 days #10 tabs 04/28/24 Rx mg-trimethoprim 160 mg tablet (Bactrim DS) Allergies Allergy/AdvReac Type Severity Reaction Status Date / Time minocycline Allergy Rash Verified 04/28/24 07:26 Vital Signs Vital Signs - 24 hr 05/02/24 14:44 05/02/24 19:20 05/02/24 19:24 Temperature 98.6 F 97.9 F Pulse Rate 93 92 92 Respiratory Rate 16 18 18 Blood Pressure 101/76 113/75 Pulse Oximetry 98 100 100 Oxygen Delivery Room Air 05/02/24 22:50 05/02/24 22:55 05/03/24 00:09 Temperature 98.2 F 98.2 F 102 F H Pulse Rate 119 H 119 H 132 H Respiratory Rate 20 20 20 Blood Pressure 109/79 106/65 106/65 Pulse Oximetry 100 97 97 Oxygen Delivery Room Air 05/03/24 00:20 05/03/24 00:30 05/03/24 01:00 Temperature 102 F H 102 F H 98.9 F Pulse Rate 132 H Respiratory Rate 20 Blood Pressure 106/65 Pulse Oximetry 97 Oxygen Delivery Room Air 05/03/24 07:28 05/03/24 07:28 Temperature 97.9 F Pulse Rate 98 Respiratory Rate 18 Blood Pressure 84/63 L Pulse Oximetry 98 Oxygen Delivery Room Air Exam Const: General: comfortable Results Labs 05/03/24 01:06 05/03/24 01:06 Labs: Short CBC 05/03/24 Range/Units 01:06 WBC 8.9 (4.5-10.0) K/mm3 Hgb 9.7 L (12.0-15.0) g/dL Hct 29.4 L (37.0-47.0) % Plt Count 348 (150-375) k/mm3 BMP 05/03/24 01:06 Sodium 137 Potassium 3.3 L Chloride 109 H Carbon Dioxide 20 L BUN 4 L Creatinine 1.45 H Glucose 109 Calcium 8.4 Liver Function 05/03/24 Range/Units 01:06 Total Bilirubin 0.6 (0.2-1.3) mg/dL AST 22 (14-36) U/L ALT 12 (6-35) U/L Alkaline Phosphatase 73 (38-126) U/L Albumin 3.0 L (3.5-5.1) g/dL
[2024-05-03] MEDS: LACTATED RINGERS 1,000 ML 100 ML IV CONT (15:01)
[2024-05-03] MEDS: POTASSIUM CHLORIDE 20 MEQ PACKET (FOR LIQUID) 40 MEQ PO (16:03)
[2024-05-03] MEDS: FLUCONAZOLE 150 MG TABLET PO (22:02)
--- NOTE | 2024-05-04 | ECHO_ITS ---
Patient Info Name: Devorah Darden Age: 38 years : 1985 Gender: Female Ht: 65 in Wt: 173 lbs BSA: 1.92 m2 HR: 94 bpm BP: 105 / 62 mmHg Heart Rhythm: Sinus Rhythm Technical Quality: Fair Exam Date: 05/04/2024 3:32 PM Exam Location: Echo Lab Patient Status: Inpatient Admit Date: 04/29/2024 Staff Ordering Physician: Echo Barrera APRN Manager Credit Risk: Chloe Brock RDCS Attending Provider: Flori Andersen MD Referring Physician: Bruce ORTIZ; Exam Type: CA echo doppler color flow Study Info Indications - Ascites Complete two-dimensional, color flow and Doppler transthoracic echocardiogram is performed. Summary 1. Complete two-dimensional, color flow and Doppler transthoracic echocardiogram is performed. 2. Left ventricular chamber dimension is normal. 3. Left ventricular systolic function is normal, estimated at 60-65%. 4. The left ventricular diastolic function is normal. 5. Right ventricular systolic function is normal. 6. No significant valvular disease. Left Ventricle Left ventricular chamber dimension is normal. Left ventricular systolic function is normal, estimated at 60-65%. There is no increased left ventricular wall thickness. The left ventricular diastolic function is normal. Right Ventricle Right ventricular chamber dimension is normal. Right ventricular systolic function is normal. Left Atria Left atrial chamber dimension is normal. Right Atria Right atrial chamber dimension is normal. Atrial Septum Intact interatrial septum visualized by color flow imaging. Aortic Valve The aortic valve is trileaflet. There is no aortic valve stenosis. There is no aortic valve regurgitation. Pulmonic Valve The pulmonic valve is normal. There is trace pulmonic regurgitation. Mitral Valve There is no mitral valve regurgitation. Tricuspid Valve There is trace tricuspid valve regurgitation. Pericardium/Pleural There is no pericardial effusion. Inferior Vena Cava Normal inferior vena cava with >50% collapse upon inspiration consistent with normal right atrial pressure, 3 mmHg. Aorta The aortic root size at the sinus of Valsalva is normal. Left Ventricular Outflow Tract Name Value Normal LVOT 2D LVOT Diameter 2.0 cm LVOT Doppler LVOT Peak Gradient 3 mmHg LVOT Mean Gradient 2 mmHg LVOT VTI 20 cm LVOT VTI/AV VTI Ratio 0.8 LVOT Stroke Volume 63 ml LVOT CO 12.8 l/min LVOT CI 6.7 l/min/m2 Pulmonic Valve Name Value Normal PV Doppler PV Peak Gradient 2 mmHg Mitral Valve Name Value Normal MV Doppler MV Decel Dupage 332 cm/s2 MV PHT 55 ms MV Area (PHT) 4.0 cm2 4.0-5.0 MV Diastolic Function MV E Peak Velocity 63 cm/s MV A Peak Velocity 48 cm/s MV E/A 1.3 MV Decel Time 190 ms MV Annular TDI MV E/e' (Septal) 6.1 <=8.0 MV E/e' (Lateral) 4.4 <=8.0 MV E/e' (Average) 5.3 Tricuspid Valve Name Value Normal TV Regurgitation Doppler TR Peak Velocity 216 cm/s TR Peak Gradient 19 mmHg Estimated PAP/RSVP RA Pressure 3 mmHg <=5 PA Systolic Pressure 22 mmHg <36 RV Systolic Pressure 22 mmHg <36 Aorta Name Value Normal Ascending Aorta Ao Root Diameter (MM) 3.0 cm Ao Root Diam Index (MM) 1.6 cm/m2 Aortic Valve Name Value Normal AV Doppler AV Peak Velocity 136 cm/s AV Peak Gradient 7 mmHg AV Mean Gradient 4 mmHg AV VTI 26 cm AV Area (Cont Eq VTI) 2.5 cm2 >=3.0 AV Area (Cont Eq Jorge) 2.0 cm2 AV Regurgitation 2D LVOT Area 3.2 cm2 Ventricles Name Value Normal LV Dimensions 2D/MM IVS Diastolic Thickness (2D) 0.9 cm 0.6-1.0 LVID Diastole (2D) 4.0 cm 3.8-5.2 LVIW Diastolic Thickness (2D) 0.9 cm 0.6-0.9 LVID Systole (2D) 2.7 cm 2.2-3.5 LVOT Diameter 2.0 cm LV Mass (2D Cubed) 111.03 g 67.00-162.00 LV Mass Index (2D Cubed) 58 g/m2 43-95 Relative Wall Thickness (2D) 0.47 LV Fractional Shortening/Ejection Fraction 2D/MM LV Fractional Shortening (2D) 32 % 27-45 LV EF (2D Teichleilaz) 61 % 54-74 LV Diastolic Volume (4C MOD) 73 ml LV EF (4C MOD) 59 % LV Diastolic Length (4C) 8.0 cm LV Systolic Length (4C) 6.5 cm LV Stroke Volume (4C MOD) 43 ml RV Dimensions 2D/MM RVID Diastole (2D) 3.6 cm 2.5-3.5 Atria Name Value Normal LA Dimensions LA Dimension (MM) 3.3 cm 2.7-3.8 LA Volume (4C A-L) 44 ml LA Volume (BP A-L) 39 ml RA Dimensions RA Area (4C) 10.3 cm2 <=18.0 Report Signatures
[2024-05-04] MEDS: metroNIDAZOLE 500 MG/ISO 100ML 500 MG/100 ML BAG 100 MG IVPB (03:45)
[2024-05-04 04:05] VITALS: BP 90/57; PULSE 92; RESP 16; TEMP 37.1; O2SAT 99
[2024-05-04 05:55] LABS: Hemoglobin 8.9 g/dL (12.0-15.0); Mean Corpuscular HGB Conc 31.8 g/dl (32-36); Mean Corpuscular Hemoglobin 27.6 pg (26-34); Mean Corpuscular Volume 86.7 fl (80-100); Mean Platelet Volume 10.8 fl (7.4-10.4); Platelet Count Result 345 k/mm3 (150-375); Red Blood Count 3.23 M/mm3 (4.2-5.4); Red Cell Distribution Width 14.4 % (11.5-14.5); White Blood Count 7.6 K/mm3 (4.5-10.0)
[2024-05-04 06:04] LABS: Anion Gap 6 mmol/L (4-12); Blood Urea Nitrogen 4 mg/dL (7-17); Calcium 8.2 mg/dL (8.4-10.2); Carbon Dioxide 22 mmol/L (22-30); Chloride 109 mmol/L (98-107); Estimated CRCL calculation 51 ml/min; Estimated Glomerular Filt Rate 42; Glucose 89 mg/dL (65-110); Potassium 3.7 mmol/L (3.4-5.0); Sodium 137 mmol/L (137-145)
[2024-05-04 06:09] LABS: INR 1.1
[2024-05-04 06:10] LABS: Partial Thromboplastin Time 30.6 Seconds (22.3-36.8)
--- NOTE | 2024-05-04 07:37 | P.PNOB_ITS ---
MARKETING PROPOSAL COORDINATOR - A/P Assessment and plan (1) Abscess, intra-abdominal, postoperative: Code(s): T81.43XA - Infection following a procedure, organ and space surgical site, initial encounter; K65.1 - Peritoneal abscess Status: Acute Assessment and Plan: Appears resolved. Afebrile. No symptoms. Normal WBC for days. (2) Ascites: Code(s): R18.8 - Other ascites Status: Acute Assessment and Plan: Likely secondary to infection. Appears resolved by exam. U/s this am then if no significant ascites, will dc home. (3) Elevated serum creatinine: Code(s): R79.89 - Other specified abnormal findings of blood chemistry Status: Acute Assessment and Plan: Continues to tend down. Will follow up with PCP. Postoperative Procedures: Procedures Operation Date: 05/02/24 11:30 <No data on this case meets the specified criteria> Time Spent With Patient Time: Total time spent is greater than 50% in coordination of care (as documented) at patient's floor/unit and/or counseling patient: Time with patient: less than 15 minutes MARKETING PROPOSAL COORDINATOR- PN:Subj Post-Op Subjective Date/time seen: 05/04/24 07:37 Interval history: Subjective: patient has no complaints Exam 2 Narrative: abdomen soft, nt, nondistended no fluid wave MARKETING PROPOSAL COORDINATOR - PN: Obj Data Vital Signs Vital Signs: Vital Signs - 24 hr 05/03/24 14:00 05/03/24 20:10 05/03/24 20:10 Temperature 98.5 F 97.8 F Pulse Rate 92 97 97 Respiratory Rate 16 16 16 Blood Pressure 113/73 105/67 Pulse Oximetry 100 100 100 Oxygen Delivery Room Air 05/04/24 04:05 Temperature 98.7 F Pulse Rate 92 Respiratory Rate 16 Blood Pressure 90/57 L Pulse Oximetry 99 Oxygen Delivery Intake/Output Intake/Output: Intake & Output 05/01/24 05/02/24 05/03/24 05/04/24 23:59 23:59 23:59 23:59 Intake Total 2488 1265 1265 Output Total 5100 2950 900 400 Balance -6305 -6687 365 -400 Meds/Results Medications: Active Medications Generic Name Dose Route Start Last Admin Trade Name Freq PRN Reason Stop Dose Admin Acetaminophen 1,000 mg 04/28/24 10:32 05/02/24 23:14 Acetaminophen 500 Mg Tablet PO 1,000 mg Q6H PRN Administration pain 1-5 Diphenhydramine HCl 25 mg 04/30/24 13:18 Diphenhydramine Hcl Inj 50 Mg/Ml Vial IV PUSH Q12H PRN Itching Famotidine 20 mg 05/01/24 09:00 05/03/24 21:37 Famotidine 20 Mg/2 Ml Vial IV PUSH 20 mg Q12HR SABI Administration Hydroxyzine HCl 25 mg 05/03/24 02:27 Hydroxyzine Hcl 25 Mg Tablet PO Q6H PRN Anxiety Sodium Chloride 1,000 mls @ 125 mls/hr 04/28/24 04:45 05/01/24 15:34 Normal Saline Iv IV CONT Not Given .Q8H SABI Ceftriaxone Sodium 1 gm in 50 mls @ 100 mls/hr 04/28/24 21:00 05/04/24 00:35 Rocephin 1 Gm/Ns 50 Ml IVPB 100 mls/hr Q24H SABI Administration Metronidazole 500 mg in 100 mls @ 100 mls/hr 04/28/24 12:00 05/04/24 03:45 Flagyl 500 Mg/Iso Soln 100 Ml IVPB 100 mls/hr Q6H SABI Administration Ibuprofen 600 mg 04/28/24 10:32 05/03/24 23:25 Ibuprofen 600 Mg Tablet PO 600 mg Q6H PRN Administration pain 1-5 breakthrough Miconazole Nitrate 1 applic 05/03/24 21:53 Miconazole Nitrate 2% Cream 30 Gm Tube TOPICAL BID PRN itching Morphine Sulfate 2 mg 04/28/24 04:43 Morphine Sulfate (*Crx) 2 Mg/Ml Inj IV PUSH Q2H PRN Pain Rated 7-10 Ondansetron HCl 4 mg 04/28/24 10:22 Ondansetron Inj 4 Mg/2 Ml Vial IV PUSH Q4H PRN Nausea And Vomiting Potassium Chloride 40 meq 05/03/24 15:30 05/03/24 16:03 Potassium Chloride 20 Meq Packet (For Liquid) PO 40 meq DAILY SABI Administration Simethicone 80 mg 05/01/24 09:00 05/04/24 06:43 Simethicone 80 Mg Tab.Chew PO Not Given QID [facility] Radiology Results: ITS Impressions Abdomen/Pelvis CT 05/01/24 08:18 IMPRESSION: Redemonstration of a rim-enhancing tubular-shaped collection in the left hemipelvis which has increased in size in a single dimension but is otherwise unchanged. Increased intra-abdominal ascites when compared with previous study. Interval development of bibasilar atelectasis. Interval worsening of the bilateral hydroureteronephrosis with decompression of the patient's bladder. Paracentesis Ultrasound 05/02/24 13:19 IMPRESSION: 1. Successful ultrasound-guided paracentesis yielding 1550 mL of yellow fluid. Pelvis CT 05/02/24 13:20 IMPRESSION: 1. Moderate volume of ascites, decreased from 05/01/2024. A repeat paracentesis has since been performed. 2. No significant distinct fluid collection in the left adnexa. The drain placement was canceled. 3. Thickened endometrial complex status post section. This finding may be hematoma or infection. Retained products of conception are not excluded. Labs 05/04/24 04:03 05/04/24 04:03 Labs: Laboratory Results - last 24 hr 05/04/24 04:03 WBC 7.6 RBC 3.23 L Hgb 8.9 L Hct 28.0 L MCV 86.7 MCH 27.6 MCHC 31.8 L RDW 14.4 Plt Count 345 MPV 10.8 H PT 15.0 H INR 1.1 APTT 30.6 Sodium 137 Potassium 3.7 Chloride 109 H Carbon Dioxide 22 Anion Gap 6 BUN 4 L Creatinine 1.39 H Estim Creat Clear Calc 51 Estimated GFR 42 L Glucose 89 Calcium 8.2 L
--- NOTE | 2024-05-04 07:39 | PM.DS ---
DS: Admitting Diagnosis Discharge Date 05/07/24 Admitting Diagnosis post op abscess DS: Discharge Diagnosis Discharge Diagnosis (1) Left ureteral injury: Code(s): S37.10XA - Unspecified injury of ureter, initial encounter Status: Acute (2) Elevated serum creatinine: Code(s): R79.89 - Other specified abnormal findings of blood chemistry Status: Acute (3) Abscess, intra-abdominal, postoperative: Code(s): T81.43XA - Infection following a procedure, organ and space surgical site, initial encounter; K65.1 - Peritoneal abscess Status: Acute (4) Ascites: Code(s): R18.8 - Other ascites Status: Acute DS: Summary Hospital Course Hospital Course: Patient admitted for IV antibiotics and monitoring. Symptomatic relief after 48 hours of antibiotics. Repeat CT at 72 hours did not show resolution or decrease of abscess and showed significant ascites. Radiology consulted to perform image guided drainage of abscess and paracentesis. Due to anesthesia not being available, the paracentesis was performed first and removed almost 4 L. The following day, repeat imaging showed the abscess to be undetectable. Repeat paracenteses of 1500 cc was performed. Cr elevated at 1.9 on admit. Over the hospital course, it has trended down and is now 1.39. No baseline to compare. Due to continued ascites and elevated creatinine the hospitalist was consulted. Multiple tests were performed including a cystogram which was normal and multiple laboratory tests which were normal. Abdominal and pelvic MRI was performed which revealed a left ureter injury. Urology was consulted. Patient underwent stent placement in her right ureter but the left ureter was unable to have a stent placed. The left nephrostomy tube was placed. The urologist plans to arrange reimplantation of left ureter and his office will contact the patient for scheduling. Patient was discharged home Patient anemic throughout . She stopped her iron but will restart. Status at Discharge Functional status at discharge: independent ambulation Overall status at discharge: patient is not back to baseline Time Spent with Patient Time attestation: Total time spent providing and/or coordinating discharge services: DS: Data Data Completed and Pending Completed studies during hospitalization: Pending at discharge 05/01/24 11:38 Cytology [PTH] Routine Labs on day of discharge: Labs from last 24 hours 05/04/24 04:03 WBC 7.6 RBC 3.23 L Hgb 8.9 L Hct 28.0 L MCV 86.7 MCH 27.6 MCHC 31.8 L RDW 14.4 Plt Count 345 MPV 10.8 H PT 15.0 H INR 1.1 APTT 30.6 Sodium 137 Potassium 3.7 Chloride 109 H Carbon Dioxide 22 Anion Gap 6 BUN 4 L Creatinine 1.39 H Estim Creat Clear Calc 51 Estimated GFR 42 L Glucose 89 Calcium 8.2 L Preliminary micro results at discharge 05/03/24 01:06 Blood Culture - Preliminary Blood 05/03/24 01:06 Blood Culture - Preliminary Blood 05/01/24 14:30 Anaerobic Culture - Preliminary Abdominal Fluid Aerobic Culture - Preliminary Discharge Plan Discharge Attending physician on discharge: Flori Andersen Consulting providers: Flori Andersen; Shauna Carpenter Discharging Clinician: Bruce Fletcher Anticipated Discharge Date/Time: 05/04/24 00:00 Patient Disposition: Home, Self-Care Activity: no shower Diet: regular Wound Care Instructions: follow printed instructions and keep dressing dry Discharge Instructions: KIDNEY DRAINAGE TUBE INFORMATION FOR PATIENTS What is a kidney drainage tube (nephrostomy tube)? Urine is produced by the kidneys and delivered to the bladder by tubes called ureters. If the ureters or bladder become blocked (i.e., by stones, blood clot, or a tumor), this can be harmful to the kidneys. A nephrostomy tube is a plastic tube inserted directly into the kidney to drain the urine to a bag outside of the body. The tube may stay in place for days or weeks. In some patients, the tube may need to stay in place permanently in which case it should be changed for a new tube every 3 months. Ask your urologist to recommend what is best for you. After the procedure: 1. No driving for 24 hours. 2. Do not lift anything heavier than 15 pounds for 3 days. 3. If this is an outpatient procedure, resume your normal diet after leaving the hospital. 4. If this is an outpatient procedure, resume your anticoagulants (blood thinners) the day after the procedure. 5. Call your doctor or nurse for fever of 101 or higher or chills, pain, excess leakage around the tube, or if your tube appears to coming out. If you have severe pain or difficulty breathing, report to the emergency department. Caring for your tube at home: 1. Keep the tube secured so it cannot be pulled out. Be sure the tube does not kink or catch on your clothing. 2. Do not swim or take a tub bath while the tube is in place. After your tube has been in place for 24 hours, you may take a shower. Try to keep the dressing as dry as possible by taping the plastic wrap over it. After the shower, remove the plastic wrap and change the dressing. 3. Always change the dressing if it gets wet. 4. To empty the drainage bag, unscrew the cap at the bottom of the bag and drain it into a container. Screw the cap closed again. Measure the total drainage each day and share this information with your doctor. Dispose of the drainage in the toilet. Dressing Changes: Your dressing should be changed at least eery three days. If there is a log drainage on the dressing, you should change it more often. Follow these steps when changing the dressin. Wash your hands with soap and water. 2. Gather hydrogen peroxide, liquid soap,Q tips, gauze, medical tape or Tegaderm, containers, and scissors that have been washed with soap. 3. Remove the old gauze dressing, but leave intact the suture and/or sticky appliance that hold the tube to the skin. Be careful not to pull on the tube or you could pull it out. Be careful not to cut the tube. 4. Moisten a Q tip with a solution of liquid soap and water and gently clean the area where the tube enters the skin. If there is a crust where the tube enters the skin, clean with a Q tip moistened with a solution of equal amounts of hydrogen peroxide and water. 5. Rinse the area with another Q tip dipped in water and pat dry with gauze. 6. Cover the site with new gauze and medical tape or Tegaderm. Call Urology with any questions or concerns: [phone] Patient Language: Malagasy Follow-up/Referrals: Flori Andersen MD [Physician] - Keep Reg. Scheduled Appt. Link Gabriel MD [Physician] - Call for Appointment (Urology office should be calling patient for an appointment and surgery scheduling) Discharge Medications: Continued valacyclovir 500 mg tablet 500 mg PO DAILY PRN (Reason: itching) Date of admission: 04/29/24 10:19 Primary Care Provider: Janine,Jimena Adam Admitting Provider: Flori Andersen Attending physician on admission: Flori Andersen Condition: Stable
[2024-05-04 07:55] VITALS: BP 105/62; PULSE 76; RESP 16; TEMP 36.6; O2SAT 99
--- NOTE | 2024-05-04 09:08 | PM.IMCN ---
Assessment and Plan Assessment and plan (1) Free fluid in pelvis: Code(s): R18.8 - Other ascites Status: Acute (2) Ascites: Code(s): R18.8 - Other ascites Status: Acute (3) Elevated serum creatinine: Code(s): R79.89 - Other specified abnormal findings of blood chemistry Status: Acute (4) Abscess, intra-abdominal, postoperative: Code(s): T81.43XA - Infection following a procedure, organ and space surgical site, initial encounter; K65.1 - Peritoneal abscess Status: Acute Plan Cirrhosis vs cancer vs heart failure (rt sided) vs complication of c section vs abd vs others - liver enzymes are normal - reports no h/o hepatitis- will order hepatic panel - h/o latent TB- completed tx over 2 years ago- reports no resp symptoms no evidence of malignancy on imaging so far low suspicious for rt sided heart failure at this point- however-will order echo to r/o RT sided heart failure -will order albumin paracentesis to calculate SAAG gradient and cytology - GI consult - will order bladder cystogram - lidocaine patch, tylenol for pain encourage ambulation HPI Date of Consult Consult date: 05/04/24 Requesting Physician: Flori Andersen MD Primary Care Provider: Jimena Mehta, Consult Narrative Narrative: 38 yo admitted through the ER with left TOA. She is 5 weeks s/p LTCS with bilateral salpingectomy. She is not drinking, does ot do drugs. NO h/o hepatitis. H/o laten TB but completed tx over 2 years ago. No symptoms since. Had couple paracentesis- initial 4l then 1.5 l paracentesis. Specimen was collected and no bacterial growth. BC was collected. Pt is on IV antibiotics. Downgrading to po antibiotics today. Repeated ultrasound- 1100 ml paracentesis this am. She denies nausea and vomiting. Cr/BUN improved this am. she is eager to go home. BP soft but pt doesnot have any dizzy/light headed symptoms. Had leg swelling but it is improved. Review of Systems Review of Systems: All systems reviewed & are unremarkable except as noted in HPI and below Eyes: Eyes: Denies blurry vision ENT: Reports Normal hearing present Cardiovascular: Cardiovascular: Denies chest pain Respiratory: Respiratory: Denies chest congestion Gastrointestinal: Gastrointestinal: Denies abdominal pain Comments: pain to paracentesis site Genitourinary: Genitourinary: Denies hematuria Neurologic: Reports Normal hearing present Psychiatric: Psychiatric: Denies anxiety [facility] Past Medical History Medical History (Updated 04/28/24 @ 11:19 by Flori Andersen MD) History of TB (tuberculosis) Treated in 2021 Hyperthyroidism HPV (human papilloma virus) infection Surgical History Surgical History (Updated 04/28/24 @ 11:16 by Flori Andersen MD) Status post bilateral salpingectomy 04/04 Status post primary low transverse section 04/04 Family History Family History Grandparent Cerebrovascular accident Diabetes mellitus Social History Social History Smoking status: Never smoker Second hand tobacco smoke exposure: No Substance use: never Do You Feel Safe in your Home?: Yes Lack of Transportation: No Lack of Food: Never True Current Housing: I Have Housing Concerned About Future Housing: No Difficulty Paying Gas/Electric Bills: No Difficulty Paying for Meds: No Currently Unemployed: No Education: High School Diploma/GED Difficulty w/ Childcare or Family Care: No Spiritual care concerns: No Meds Home Medications and Allergies Home Medications ?Medication ?Instructions ?Recorded ?Confirmed ?Type valacyclovir 500 mg tablet 500 mg PO DAILY PRN itching 03/23/24 04/28/24 History Allergies Allergy/AdvReac Type Severity Reaction Status Date / Time minocycline Allergy Rash Verified 04/28/24 07:26 Vital Signs Vital Signs - 24 hr 05/03/24 14:00 05/03/24 20:10 05/03/24 20:10 Temperature 98.5 F 97.8 F Pulse Rate 92 97 97 Respiratory Rate 16 16 16 Blood Pressure 113/73 105/67 Pulse Oximetry 100 100 100 Oxygen Delivery Room Air 05/04/24 04:05 05/04/24 07:00 05/04/24 07:55 Temperature 98.7 F 97.9 F Pulse Rate 92 76 Respiratory Rate 16 16 Blood Pressure 90/57 L 105/62 Pulse Oximetry 99 99 Oxygen Delivery Room Air Exam Const: General: comfortable Eyes: General: appearance normal, both eyes and all related structures Resp: Effort & Inspection: normal respiratory effort Auscultation: clear to auscultation bilaterally Cardio: Rate: regular rate Rhythm: regular rhythm GI: GI Palp: Yes Soft to palpation Auscultation: normal bowel sounds Skin: General skin exam: normal color Neuro: Cranial nerves: Yes Normal hearing present Psych: Affect: Anxious affect present Results Labs 05/04/24 04:03 05/04/24 04:03 Labs: Short CBC 05/04/24 Range/Units 04:03 WBC 7.6 (4.5-10.0) K/mm3 Hgb 8.9 L (12.0-15.0) g/dL Hct 28.0 L (37.0-47.0) % Plt Count 345 (150-375) k/mm3 [facility] 05/04/24 04:03 Sodium 137 Potassium 3.7 Chloride 109 H Carbon Dioxide 22 BUN 4 L Creatinine 1.39 H Glucose 89 Calcium 8.2 L
--- NOTE | 2024-05-04 09:28 | PC.NURSE ---
Patient to US via wheelchair. IV saline locked.
--- NOTE | 2024-05-04 09:56 | PC.NURSE ---
Returned from US.
[2024-05-04] MEDS: POTASSIUM CHLORIDE 20 MEQ PACKET (FOR LIQUID) 40 MEQ PO (10:27)
[2024-05-04] MEDS: FAMOTIDINE 20 MG/2 ML VIAL IV PUSH ×2 (10:27→20:56)
[2024-05-04] MEDS: SIMETHICONE 80 MG TAB.CHEW PO ×2 (10:27→20:56)
[2024-05-04] MEDS: SULFAMETHOXAZOLE/TRIMETHOPRIM 800/160 MG DS TABLET 1 TAB PO ×2 (12:03→20:56)
[2024-05-04] MEDS: metroNIDAZOLE 500 MG TABLET PO ×2 (12:03→20:56)
[2024-05-04] MEDS: LIDOCAINE 5% PATCH 1 PATCH TRANSDERM (12:03)
[2024-05-04] MEDS: IBUPROFEN 600 MG TABLET PO (12:03)
[2024-05-04 12:07] LABS: Alanine Aminotransferase 14 U/L (6-35); Albumin Level 3.1 g/dL (3.5-5.1); Alkaline Phosphatase 67 U/L (38-126); Aspartate Amino Transferase 29 U/L (14-36); Bilirubin,Total 0.3 mg/dL (0.2-1.3)
[2024-05-04 13:17] LABS: Add Urine Microscopic? YES; Appearance Urine Cloudy (Clear); Bacteria Urine None Seen /hpf; Bilirubin Urine Negative (Negative); Blood Urine 1+ (Negative); Color Urine Yellow (Yellow); Glucose Urine UA Negative (Negative); Ketones Urine Negative (Negative); Leukocyte Esterase Ur Trace LEU/UL (Negative); Need Manual Microscopic Reviewed; Nitrate Urine Negative (Negative); Non Pathogenic Casts 0-2; Protein Urine Negative (Negative); RBC Urine 0-2 /hpf (0-2); Specific Grav Ur 1.008 (1.001-1.035); Squamous Epithelial Cell Urine Moderate /hpf (Few); Urobilinogen Urine 0.2 mg/dL (<2.0); WBC Urine 0-5 /hpf (0-3)
--- NOTE | 2024-05-04 13:35 | PC.NURSE ---
Patient to radiology per wheelchair.
--- NOTE | 2024-05-04 14:19 | PC.NURSE ---
Returned from radiology.
[2024-05-04 16:00] VITALS: BP 95/65; PULSE 94; RESP 16; TEMP 37.1; O2SAT 99
--- NOTE | 2024-05-04 17:50 | P.PNCROSS_ITS ---
Event Note Event Note Event Note: The patient is a 38-year-old female with no significant past medical history ex cept for latent TB. My fellow hospitalist followed the patient. The patient gave on 03/25/2024 by low transverse . Per the ob/ advanced practice nurse psychotherapist, no significant incident occurred during the delivery. The patient also had bilateral salpingectomy and left broad ligament laceration, which was repaired. The patient returned to the hospital on 04/28/2024 due to abdominal pain. There was a significant lab finding during the admission on 04/28/2024: creatinine 1.8. We were unable to find the patient's baseline creatinine. As the patient stated, she never had any renal issues before . The initial CT performed on 04/28 shows 6.3 x 2.2 x 2.4 peripherally enhancing left pelvic fluid collection adjacent to the uterus. This could reflect an abscess or possible hydrosalpinx. There is a large amount of abdominal pelvic ascites. There is minimal bilateral hydronephrosis. Repeat CT was performed on 05/01, demonstrating an enhancing tubular-shaped collection in the left hemipelvis, which has increased in size in a single dimension but is otherwise unchanged?increased intra-abdominal ascites when compared with the previous study. Interval development of bibasilar atelectasis. Interval worsening of bilateral hydroureteronephrosis with decompression of the patient's bladder. In the meantime, the patient had her 1st paracentesis on 05/01 and drained 3800 mL of yellow fluid. The patient had her 2nd paracentesis on 05/02 and drained 1550 mL of yellow fluid. The patient had a repeat pelvis CT on 05/02, which shows a moderate volume of ascites decreased from 05/01. Repeated paracentesis has been performed. There is no significant distinct fluid collection in the left adnexa. The drain placement was canceled. Thickened endometrial complex status post- section. This finding may be hematoma or infection. Retained products of conception are not excluded. The patient had her 3rd paracentesis on 05/04 and drained 1100 mL of yellow fluid. Today, ordered albumin, cell count, aerobic/anaerobic culture, and cytology of the peritoneal fluid. Due to the late hours, I was unable to reach the pathology department to look for the fluid's specific gravity. We will calculate SAAG, which can give us the direction with a transudate versus an exudate. Since the patient has recurrent ascites, the origin is very suspicious. Patient LFTs are normal. I ordered a hepatitis panel. There is no known history of cardiac disease, ovarian cancer, hepatitis, or alcoholism. Any injury to the bladder or ureteral has been ruled out by performing a cystogram. Although during , the uterus can press the abdominal organs, including the ureteral and kidney, and hydronephrosis is a common presentation, it is suspicious to have hydronephrosis even after delivering the fetus approximately 30 days ago. I spoke with to discuss any events that happened during the C- section. As per Dr. Andersen, no intra-abdominal pathology was evident during the , and she confirmed no abnormal events. I discussed this with a activated sludge operator, who agreed with the case's complexity and could not identify the source of ascites. I ordered an MRI of the abdomen and pelvis, looking for an abdominal pathology.A lso Liver US with Doppler to rule portal thrombosis and renal US If there are no findings, we will discuss it with the patient and director of operations support will perform a CTA on the abdomen and pelvis to rule out portal vein thrombosis. Patient is not safe to discharge from our standpoint of view. If we are unable to find the source of ascites patient might need transfer to tertiary care center by the primary team (Tour Consultant).
[2024-05-04 19:20] LABS: Lactic Acid Reflex 0.9 mmol/L (0.7-2.0)
[2024-05-04 19:25] LABS: CRP 1.6 mg/dL (<1.0)
[2024-05-04 19:29] LABS: Erythrocyte Sedimentation Rate 57 mm/hr (0-20)
--- NOTE | 2024-05-04 20:03 | WPDGICN ---
Assessment and Plan Assessment and plan (1) Ascites: Code(s): R18.8 - Other ascites Status: Acute Assessment and Plan: The differential diagnosis for the patient's ascites encompasses portal hypertension and other potential etiologies, including infectious, inflammatory, and neoplastic diseases. To differentiate between these possibilities, we will calculate the serum-ascites albumin gradient (SAAG). A SAAG > 1.1 is indicative of portal hypertension, whereas a SAAG < 1.1 suggests alternative etiologies. Given the patient's clinical presentation and assuming SAAG < 1.1 , I believe a diagnostic laparoscopy with peritoneal and pelvic organ biopsies is the most likely and definitive diagnostic approach. However, after discussion with the hospitalist, a liver ultrasound with Doppler study will be performed to evaluate for portal hypertension or suprahepatic vein obstruction. While these possibilities remain in the differential, they are considered less likely due to the absence of hepatomegaly and the clear yellow appearance of the ascitic fluid. In addition to the SAAG, ascitic fluid LDH, glucose, and total protein levels will be analyzed. The patient's clinical status and management plan will be reassessed upon receipt of these laboratory and imaging results. GI Consult Note Consult date/time: 05/04/24 20:03 Reason for consult: new onset ascites HPI: Devorah Darden, a 38-year-old female with a history of latent tuberculosis treated with a 6-month course of isoniazid at [facility] in 2021, was admitted on 04/28 for severe left flank and lower quadrant pain accompanied by new-onset ascites. She underwent an uncomplicated at our institution on 03/25/2024, but subsequently developed progressive abdominal discomfort. A CT scan performed on 04/28 demonstrated a possible hydrosalpinx or abscess with a large volume of clear yellow ascites. Two therapeutic paracenteses were performed on 05/01, and 05/02 yielding 3800 mL and 1550 mL of fluid respectively. The biochemical and cellular analysis of the ascitic fluid is currently pending. This consultation is requested to determine the etiology of the patient's new-onset ascites. Review of Systems Review of Systems: All systems reviewed & are unremarkable except as noted in HPI and below PMFSH Past Medical History Medical History (Updated 04/28/24 @ 11:19 by Flori Andersen MD) History of TB (tuberculosis) Treated in 2021 Hyperthyroidism HPV (human papilloma virus) infection Surgical History Surgical History (Updated 04/28/24 @ 11:16 by Flori Andersen MD) Status post bilateral salpingectomy 04/04 Status post primary low transverse section 04/04 Family History Family History Grandparent Cerebrovascular accident Diabetes mellitus Social History Social History Smoking status: Never smoker Second hand tobacco smoke exposure: No Substance use: never Do You Feel Safe in your Home?: Yes Lack of Transportation: No Lack of Food: Never True Current Housing: I Have Housing Concerned About Future Housing: No Difficulty Paying Gas/Electric Bills: No Difficulty Paying for Meds: No Currently Unemployed: No Education: High School Diploma/GED Difficulty w/ Childcare or Family Care: No Spiritual care concerns: No Meds Home Medications and Allergies Home Medications ?Medication ?Instructions ?Recorded ?Confirmed ?Type valacyclovir 500 mg tablet 500 mg PO DAILY PRN itching 03/23/24 04/28/24 History Allergies Allergy/AdvReac Type Severity Reaction Status Date / Time minocycline Allergy Rash Verified 04/28/24 07:26 Vital Signs Vital Signs - 24 hr 05/03/24 20:10 05/03/24 20:10 05/04/24 04:05 Temperature 97.8 F 98.7 F Pulse Rate 97 97 92 Respiratory Rate 16 16 16 Blood Pressure 105/67 90/57 L Pulse Oximetry 100 100 99 Oxygen Delivery Room Air 05/04/24 07:00 05/04/24 07:55 05/04/24 16:00 Temperature 97.9 F 98.8 F Pulse Rate 76 94 Respiratory Rate 16 16 Blood Pressure 105/62 95/65 L Pulse Oximetry 99 99 Oxygen Delivery Room Air 05/04/24 16:00 Temperature Pulse Rate Respiratory Rate Blood Pressure Pulse Oximetry Oxygen Delivery Room Air Exam Narrative: Alert and oriented x3. Abdomen: Soft, nontender, nondistended, bowel sounds present, no rebound. The rest of the examination within normal limits. Results Labs 05/04/24 04:03 05/04/24 04:03 Labs: Short CBC 05/04/24 Range/Units 04:03 WBC 7.6 (4.5-10.0) K/mm3 Hgb 8.9 L (12.0-15.0) g/dL Hct 28.0 L (37.0-47.0) % Plt Count 345 (150-375) k/mm3 BMP 05/04/24 04:03 Sodium 137 Potassium 3.7 Chloride 109 H Carbon Dioxide 22 BUN 4 L Creatinine 1.39 H Glucose 89 Calcium 8.2 L Liver Function 05/04/24 Range/Units 11:49 Total Bilirubin 0.3 (0.2-1.3) mg/dL Direct Bilirubin 0.0 (0-0.3) mg/dL AST 29 (14-36) U/L ALT 14 (6-35) U/L Alkaline Phosphatase 67 (38-126) U/L Albumin 3.1 L (3.5-5.1) g/dL Urine 05/04/24 Range/Units 12:41 Urine Color Yellow (Yellow) Urine Appearance Cloudy H (Clear) Urine pH 7.0 (5.0-9.0) Ur Specific [place] 1.008 (1.001-1.035) Urine Protein Negative (Negative) mg/dL Urine Glucose (UA) Negative (Negative) mg/dL
[2024-05-04 20:31] LABS: Appearance Peritoneal Fluid Hazy (Clear); Color Peritoneal Fluid Yellow (Colorless); Lymphocytes Peritoneal Fluid 37 %; Neutrophils Peritoneal Fluid 30 % (0-25); Nucleated Cells Peritoneal Flu 581 /uL (0-500); RBC Peritoneal Fluid < 2000 /uL (0-10000); Source Peritoneal Fluid Peritoneal Fluid
[2024-05-04 20:32] LABS: Macrophages Peritoneal Fluid 27 %; Mesothelial Cells Peritoneal Fluid 6 %
[2024-05-04 20:56] VITALS: BP 106/60; PULSE 98; RESP 18; TEMP 36.6; O2SAT 97
[2024-05-04 22:51] LABS: Hepatitis B Surface Antigen Negative (Negative)
[2024-05-04 22:56] LABS: HAV RESULT Negative (Negative); Hepatitis B Core IgM Result Negative (Negative)
[2024-05-04 23:56] LABS: Hepatitis C Virus Antibody Negative (Negative)
[2024-05-05] VITALS (7 sets, daily range): BP systolic 94–112; BP diastolic 64–84; PULSE 83–108; RESP 14–20; TEMP 36.4–36.8; O2SAT 95–100
[2024-05-05 06:03] LABS: CA-125 101 U/mL (<35)
--- NOTE | 2024-05-05 07:39 | PM.IMPN ---
Progress Note: A&P Assessment and Plan (1) Free fluid in pelvis: Code(s): R18.8 - Other ascites Status: Acute (2) Ascites: Code(s): R18.8 - Other ascites Status: Acute (3) Elevated serum creatinine: Code(s): R79.89 - Other specified abnormal findings of blood chemistry Status: Acute (4) Abscess, intra-abdominal, postoperative: Code(s): T81.43XA - Infection following a procedure, organ and space surgical site, initial encounter; K65.1 - Peritoneal abscess Status: Acute Assessment and Plan: Please refer to HPI. Underwent Cystoscopy, bilateral retrograde pyelograms, left ureteroscopy, right ureteral stent placement 4.8 Arabic contour As per urology: Patient will have a left percutaneous nephrostomy tube placed in the morning. Definitive management of this transected ureter which most likely require a reimplant. Further management as per Skimmer Scoop Operator and Urology Subjective Date/time seen: 05/05/24 07:39 Interval history: Interval Hx:The patient is a 38-year-old female with no significant past medical history except for latent TB. My fellow hospitalist followed the patient. The patient gave on 03/25/2024 by low transverse . Per the ob/ bond clerk, no significant incident occurred during the delivery. The patient also had bilateral salpingectomy and left broad ligament laceration, which was repaired. The patient returned to the hospital on 04/28/2024 due to abdominal pain. There was a significant lab finding during the admission on 04/28/2024: creatinine 1.8. We were unable to find the patient's baseline creatinine. As the patient stated, she never had any renal issues before . The initial CT performed on 04/28 shows 6.3 x 2.2 x 2.4 peripherally enhancing left pelvic fluid collection adjacent to the uterus. This could reflect an abscess or possible hydrosalpinx. There is a large amount of abdominal pelvic ascites. There is minimal bilateral hydronephrosis. Repeat CT was performed on 05/01, demonstrating an enhancing tubular-shaped collection in the left hemipelvis, which has increased in size in a single dimension but is otherwise unchanged?increased intra-abdominal ascites when compared with the previous study. Interval development of bibasilar atelectasis. Interval worsening of bilateral hydroureteronephrosis with decompression of the patient's bladder. In the meantime, the patient had her 1st paracentesis on 05/01 and drained 3800 mL of yellow fluid. The patient had her 2nd paracentesis on 05/02 and drained 1550 mL of yellow fluid. The patient had a repeat pelvis CT on 05/02, which shows a moderate volume of ascites decreased from 05/01. Repeated paracentesis has been performed. There is no significant distinct fluid collection in the left adnexa. The drain placement was canceled. Thickened endometrial complex status post- section. This finding may be hematoma or infection. Retained products of conception are not excluded. The patient had her 3rd paracentesis on 05/04 and drained 1100 mL of yellow fluid. Today, ordered albumin, cell count, aerobic/anaerobic culture, and cytology of the peritoneal fluid. Due to the late hours, I was unable to reach the pathology department to look for the fluid's specific gravity. We will calculate SAAG, which can give us the direction with a transudate versus an exudate. Since the patient has recurrent ascites, the origin is very suspicious. Patient LFTs are normal. I ordered a hepatitis panel. There is no known history of cardiac disease, ovarian cancer, hepatitis, or alcoholism. Any injury to the bladder or ureteral has been ruled out by performing a cystogram. Although during , the uterus can press the abdominal organs, including the ureteral and kidney, and hydronephrosis is a common presentation, it is suspicious to have hydronephrosis even after delivering the fetus approximately 30 days ago. I spoke with to discuss any events that happened during the . As per Dr. Andersen, no intra-abdominal pathology was evident during the , and she confirmed no abnormal events. I discussed this with a sales attendant building materials, who agreed with the case's complexity and could not identify the source of ascites. I ordered an MRI of the abdomen and pelvis, looking for an abdominal pathology.Also Liver US with Doppler to rule portal thrombosis and renal US If there are no findings, we will discuss it with the patient and foundry supervisor will perform a CTA on the abdomen and pelvis to rule out portal vein thrombosis. Patient is not safe to discharge from our standpoint of view. If we are unable to find the source of ascites patient might need transfer to tertiary care center by the primary team (Skimmer Scoop Operator). 05/05: MRI shows left ureter damage. Also demonstrates loculated fluid collection along the left side of the ureteral. Please read complete report. Discussed with Urology and Ob Gyne. Further treatment as per Urology and Skimmer Scoop Operator Exam Const: General: comfortable Eyes: General: appearance normal, both eyes and all related structures Resp: Effort & Inspection: normal respiratory effort Auscultation: clear to auscultation bilaterally Cardio: Rate: regular rate Rhythm: regular rhythm GI: Auscultation: normal bowel sounds Skin: General skin exam: normal color Neuro: Cranial nerves: Yes Normal hearing present Psych: Affect: Anxious affect present Objective Data Vital Signs Vital Signs: Vital Signs - 24 hr 05/04/24 07:55 05/04/24 16:00 05/04/24 16:00 Temperature 97.9 F 98.8 F Pulse Rate 76 94 Respiratory Rate 16 16 Blood Pressure 105/62 95/65 L Pulse Oximetry 99 99 Oxygen Delivery Room Air 05/04/24 20:56 05/05/24 04:12 Temperature 97.9 F 97.5 F L Pulse Rate 98 83 Respiratory Rate 18 18 Blood Pressure 106/60 109/67 Pulse Oximetry 97 98 Oxygen Delivery Intake/Output Intake/Output: Intake & Output 05/02/24 05/03/24 05/04/24 05/05/24 23:59 23:59 23:59 23:59 Intake Total 1265 1265 650 500 Output Total 2950 900 3450 300 Balance -1685 365 -2800 200 Meds/Results Medications: Active Medications Generic Name Dose Route Start Last Admin Trade Name Freq PRN Reason Stop Dose Admin Acetaminophen 1,000 mg 04/28/24 10:32 05/02/24 23:14 Acetaminophen 500 Mg Tablet PO 1,000 mg Q6H PRN Administration pain 1-5 Diphenhydramine HCl 25 mg 04/30/24 13:18 Diphenhydramine Hcl Inj 50 Mg/Ml Vial IV PUSH Q12H PRN Itching Famotidine 20 mg 05/01/24 09:00 05/04/24 20:56 Famotidine 20 Mg/2 Ml Vial IV PUSH 20 mg Q12HR SABI Administration Hydroxyzine HCl 25 mg 05/03/24 02:27 Hydroxyzine Hcl 25 Mg Tablet PO Q6H PRN Anxiety Ibuprofen 600 mg 04/28/24 10:32 05/04/24 12:03 Ibuprofen 600 Mg Tablet PO 600 mg Q6H PRN Administration pain 1-5 breakthrough Lidocaine 1 patch 05/04/24 11:40 05/04/24 12:03 Lidocaine 5% Patch TRANSDERM 1 patch DAILY SABI Administration Metronidazole 500 mg 05/04/24 11:30 05/04/24 20:56 Metronidazole 500 Mg Tablet PO 05/09/24 11:29 500 mg Q12HR SABI Administration Miconazole Nitrate 1 applic 05/03/24 21:53 Miconazole Nitrate 2% Cream 30 Gm Tube TOPICAL BID PRN itching Morphine Sulfate 2 mg 04/28/24 04:43 Morphine Sulfate (*Crx) 2 Mg/Ml Inj IV PUSH Q2H PRN Pain Rated 7-10 Ondansetron HCl 4 mg 04/28/24 10:22 Ondansetron Inj 4 Mg/2 Ml Vial IV PUSH Q4H PRN Nausea And Vomiting Perflutren Lipid Microsphere 0 ml 05/04/24 10:20 Perflutren Lipid Microspheres 1.5 Ml Vial Diluted To 10 Ml Total Volume IV PUSH 05/07/24 10:21 ONCE PRN adequate visualization Protocol Simethicone 80 mg 05/01/24 09:00 05/04/24 20:56 Simethicone 80 Mg Tab.Chew PO 80 mg QID SABI Administration Sodium Chloride 6 ml 05/06/24 05:00 Sodium Chlor 3% 15 Ml Neb (Respiratory Therapy) INHALATION 05/08/24 05:01 DAILY@0500 SABI Trimethoprim/Sulfamethoxazole 1 tab 05/04/24 11:35 05/04/24 20:56 Sulfamethoxazole/Trimethoprim 800/160 Mg Ds Tablet PO 1 tab Q12HR SABI Administration Radiology Results: ITS Impressions Abdomen/Pelvis CT 05/01/24 08:18 IMPRESSION: Redemonstration of a rim-enhancing tubular-shaped collection in the left hemipelvis which has increased in size in a single dimension but is otherwise unchanged. Increased intra-abdominal ascites when compared with previous study. Interval development of bibasilar atelectasis. Interval worsening of the bilateral hydroureteronephrosis with decompression of the patient's bladder. Pelvis CT 05/02/24 13:20 IMPRESSION: 1. Moderate volume of ascites, decreased from 05/01/2024. A repeat paracentesis has since been performed. 2. No significant distinct fluid collection in the left adnexa. The drain placement was canceled. 3. Thickened endometrial complex status post section. This finding may be hematoma or infection. Retained products of conception are not excluded. Paracentesis Ultrasound 05/04/24 10:05 IMPRESSION: 1. Successful ultrasound-guided paracentesis yielding 1100 mL of yellow fluid. Cystogram 05/04/24 14:08 IMPRESSION: 1. Normal cystogram. Abdomen Ultrasound 05/04/24 20:15 IMPRESSION: 1: Gallbladder wall thickening with gallstones. 2: Moderate ascites. 3: No evidence for portal venous thrombosis. Arterial/Peripheral Duplex 05/04/24 20:15 IMPRESSION: 1: Gallbladder wall thickening with gallstones. 2: Moderate ascites. 3: No evidence for portal venous thrombosis. Labs Labs: Laboratory Results - last 24 hr 05/04/24 05/04/24 05/04/24 11:06 11:49 12:41 ESR Lactic Acid Total Bilirubin 0.3 Direct Bilirubin 0.0 AST 29 ALT 14 Alkaline Phosphatase 67 C-Reactive Protein Total Protein 6.0 L Albumin 3.1 L CA 125 Antigen Urine Color Yellow Urine Appearance Cloudy H Urine pH 7.0 Ur Specific [place] 1.008 Urine Protein Negative Urine Glucose (UA) Negative Urine Ketones Negative Ur Blood (Man) 1+ H Urine Nitrate Negative Urine Bilirubin Negative Urine Urobilinogen 0.2 Add Ur Microanalysis Reviewed Leukocyte Esterase Rfl Trace H Urine RBC 0-2 Urine WBC 0-5 Ur Squamous Epith Cells Moderate Urine Bacteria None seen Urine Casts 0-2 Peritoneal Source Peritoneal fluid Peritoneal Color Yellow Peritoneal Appearance Hazy A Peritoneal RBC < 2000 Periton Nuc Cells 581 H Periton Neutrophils 30 H Periton Lymphocytes 37 Periton Mesothelial 6 Periton Macrophages 27 Hepatitis A IgM Ab Hep Bs Antigen Hep B Core IgM Ab Hepatitis C Ab Screen 05/04/24 05/04/24 05/04/24 16:53 18:51 22:02 ESR 57 H Lactic Acid 0.9 Total Bilirubin Direct Bilirubin AST ALT Alkaline Phosphatase C-Reactive Protein 1.6 H Total Protein Albumin CA 125 Antigen 101 H Urine Color Urine Appearance Urine pH Ur Specific [place] Urine Protein Urine Glucose (UA) Urine Ketones Ur Blood (Man) Urine Nitrate Urine Bilirubin Urine Urobilinogen Add Ur Microanalysis Leukocyte Esterase Rfl Urine RBC Urine WBC Ur Squamous Epith Cells Urine Bacteria Urine Casts Peritoneal Source Peritoneal Color Peritoneal Appearance Peritoneal RBC Periton Nuc Cells Periton Neutrophils Periton Lymphocytes Periton Mesothelial Periton Macrophages Hepatitis A IgM Ab Negative Hep Bs Antigen Negative Hep B Core IgM Ab Negative Hepatitis C Ab Screen Negative Hospitalist MIPS Advance Care Plan I have confirmed that the patient's Advanced Care Plan is present, code status is documented, or surrogate decision maker is listed in patient medical record.: Yes Medication Reconciliation I have utilized all available resources to obtain, update and review the patients current medications (includes all prescriptions, OTC, herbals, cannabis, and nutritional supplements).: Yes
--- NOTE | 2024-05-05 08:00 | PM.GYNPNOP ---
MERCHANDISE DISTRIBUTOR - A/P Assessment and plan (1) Ascites: Code(s): R18.8 - Other ascites Status: Acute Assessment and Plan: Causing inflammatory markers to be elevated. Patient currently heading to MRI. Results will determine further plan as per hospitalist. Patient is likely to be transferred for further evaluation if no cause is found for the ascites. (2) Elevated serum creatinine: Code(s): R79.89 - Other specified abnormal findings of blood chemistry Status: Acute Assessment and Plan: Continue to monitor (3) Abscess, intra-abdominal, postoperative: Code(s): T81.43XA - Infection following a procedure, organ and space surgical site, initial encounter; K65.1 - Peritoneal abscess Status: Acute Assessment and Plan: Appears to be resolved. No clinical signs. Will finish oral antibiotics. Postoperative Procedures: Procedures Operation Date: 05/02/24 11:30 <No data on this case meets the specified criteria> Time Spent With Patient Time: Total time spent is greater than 50% in coordination of care (as documented) at patient's floor/unit and/or counseling patient: Time with patient: less than 15 minutes MERCHANDISE DISTRIBUTOR- PN:Subj Post-Op Subjective Date/time seen: 05/05/24 08:01 Interval history: Patient without current complaint Exam Narrative: Abdomen soft and nontender No appreciable ascites MERCHANDISE DISTRIBUTOR - PN: Obj Data Vital Signs Vital Signs: Vital Signs - 24 hr 05/04/24 16:00 05/04/24 16:00 05/04/24 20:56 Temperature 98.8 F 97.9 F Pulse Rate 94 98 Respiratory Rate 16 18 Blood Pressure 95/65 L 106/60 Pulse Oximetry 99 97 Oxygen Delivery Room Air 05/05/24 04:12 Temperature 97.5 F L Pulse Rate 83 Respiratory Rate 18 Blood Pressure 109/67 Pulse Oximetry 98 Oxygen Delivery Intake/Output Intake/Output: Intake & Output 05/02/24 05/03/24 05/04/24 05/05/24 23:59 23:59 23:59 23:59 Intake Total 1265 1265 650 500 Output Total 2950 900 3450 300 Balance -1685 365 -2800 200 Meds/Results Medications: Active Medications Generic Name Dose Route Start Last Admin Trade Name Freq PRN Reason Stop Dose Admin Acetaminophen 1,000 mg 04/28/24 10:32 05/02/24 23:14 Acetaminophen 500 Mg Tablet PO 1,000 mg Q6H PRN Administration pain 1-5 Diphenhydramine HCl 25 mg 04/30/24 13:18 Diphenhydramine Hcl Inj 50 Mg/Ml Vial IV PUSH Q12H PRN Itching Famotidine 20 mg 05/01/24 09:00 05/04/24 20:56 Famotidine 20 Mg/2 Ml Vial IV PUSH 20 mg Q12HR SABI Administration Hydroxyzine HCl 25 mg 05/03/24 02:27 Hydroxyzine Hcl 25 Mg Tablet PO Q6H PRN Anxiety Ibuprofen 600 mg 04/28/24 10:32 05/04/24 12:03 Ibuprofen 600 Mg Tablet PO 600 mg Q6H PRN Administration pain 1-5 breakthrough Lidocaine 1 patch 05/04/24 11:40 05/04/24 12:03 Lidocaine 5% Patch TRANSDERM 1 patch DAILY SABI Administration Metronidazole 500 mg 05/04/24 11:30 05/04/24 20:56 Metronidazole 500 Mg Tablet PO 05/09/24 11:29 500 mg Q12HR SABI Administration Miconazole Nitrate 1 applic 05/03/24 21:53 Miconazole Nitrate 2% Cream 30 Gm Tube TOPICAL BID PRN itching Morphine Sulfate 2 mg 04/28/24 04:43 Morphine Sulfate (*Crx) 2 Mg/Ml Inj IV PUSH Q2H PRN Pain Rated 7-10 Ondansetron HCl 4 mg 04/28/24 10:22 Ondansetron Inj 4 Mg/2 Ml Vial IV PUSH Q4H PRN Nausea And Vomiting Perflutren Lipid Microsphere 0 ml 05/04/24 10:20 Perflutren Lipid Microspheres 1.5 Ml Vial Diluted To 10 Ml Total Volume IV PUSH 05/07/24 10:21 ONCE PRN adequate visualization Protocol Simethicone 80 mg 05/01/24 09:00 05/04/24 20:56 Simethicone 80 Mg Tab.Chew PO 80 mg QID SABI Administration Sodium Chloride 6 ml 05/06/24 05:00 Sodium Chlor 3% 15 Ml Neb (Respiratory Therapy) INHALATION 05/08/24 05:01 DAILY@0500 SABI Trimethoprim/Sulfamethoxazole 1 tab 05/04/24 11:35 05/04/24 20:56 Sulfamethoxazole/Trimethoprim 800/160 Mg Ds Tablet PO 1 tab Q12HR SABI Administration Radiology Results: ITS Impressions Abdomen/Pelvis CT 05/01/24 08:18 IMPRESSION: Redemonstration of a rim-enhancing tubular-shaped collection in the left hemipelvis which has increased in size in a single dimension but is otherwise unchanged. Increased intra-abdominal ascites when compared with previous study. Interval development of bibasilar atelectasis. Interval worsening of the bilateral hydroureteronephrosis with decompression of the patient's bladder. Pelvis CT 05/02/24 13:20 IMPRESSION: 1. Moderate volume of ascites, decreased from 05/01/2024. A repeat paracentesis has since been performed. 2. No significant distinct fluid collection in the left adnexa. The drain placement was canceled. 3. Thickened endometrial complex status post section. This finding may be hematoma or infection. Retained products of conception are not excluded. Paracentesis Ultrasound 05/04/24 10:05 IMPRESSION: 1. Successful ultrasound-guided paracentesis yielding 1100 mL of yellow fluid. Cystogram 05/04/24 14:08 IMPRESSION: 1. Normal cystogram. Abdomen Ultrasound 05/04/24 20:15 IMPRESSION: 1: Gallbladder wall thickening with gallstones. 2: Moderate ascites. 3: No evidence for portal venous thrombosis. Arterial/Peripheral Duplex 05/04/24 20:15 IMPRESSION: 1: Gallbladder wall thickening with gallstones. 2: Moderate ascites. 3: No evidence for portal venous thrombosis. Labs 05/04/24 04:03 05/04/24 04:03 Labs: Laboratory Results - last 24 hr 05/04/24 05/04/24 05/04/24 11:06 11:49 12:41 ESR Lactic Acid Total Bilirubin 0.3 Direct Bilirubin 0.0 AST 29 ALT 14 Alkaline Phosphatase 67 C-Reactive Protein Total Protein 6.0 L Albumin 3.1 L CA 125 Antigen Urine Color Yellow Urine Appearance Cloudy H Urine pH 7.0 Ur Specific [place] 1.008 Urine Protein Negative Urine Glucose (UA) Negative Urine Ketones Negative Ur Blood (Man) 1+ H Urine Nitrate Negative Urine Bilirubin Negative Urine Urobilinogen 0.2 Add Ur Microanalysis Reviewed Leukocyte Esterase Rfl Trace H Urine RBC 0-2 Urine WBC 0-5 Ur Squamous Epith Cells Moderate Urine Bacteria None seen Urine Casts 0-2 Peritoneal Source Peritoneal fluid Peritoneal Color Yellow Peritoneal Appearance Hazy A Peritoneal RBC < 2000 Periton Nuc Cells 581 H Periton Neutrophils 30 H [place] Lymphocytes 37 [place] Mesothelial 6 Per[place] Macrophages 27 Hepatitis A IgM Ab Hep Bs Antigen Hep B Core IgM Ab Hepatitis C Ab Screen 05/04/24 05/04/24 05/04/24 16:53 18:51 22:02 ESR 57 H Lactic Acid 0.9 Total Bilirubin Direct Bilirubin AST ALT Alkaline Phosphatase C-Reactive Protein 1.6 H Total Protein Albumin CA 125 Antigen 101 H Urine Color Urine Appearance Urine pH Ur Specific [place] Urine Protein Urine Glucose (UA) Urine Ketones Ur Blood (Man) Urine Nitrate Urine Bilirubin Urine Urobilinogen Add Ur Microanalysis Leukocyte Esterase Rfl Urine RBC Urine WBC Ur Squamous Epith Cells Urine Bacteria Urine Casts Peritoneal Source Peritoneal Color Peritoneal Appearance Peritoneal RBC Periton Nuc Cells Periton Neutrophils Periton Lymphocytes Periton Mesothelial Periton Macrophages Hepatitis A IgM Ab Negative Hep Bs Antigen Negative Hep B Core IgM Ab Negative Hepatitis C Ab Screen Negative
[2024-05-05 09:08] LABS: Hemoglobin 10.1 g/dL (12.0-15.0); Mean Corpuscular HGB Conc 31.6 g/dl (32-36); Mean Corpuscular Hemoglobin 28.1 pg (26-34); Mean Corpuscular Volume 88.9 fl (80-100); Mean Platelet Volume 10.6 fl (7.4-10.4); Platelet Count Result 369 k/mm3 (150-375); Red Cell Distribution Width 14.6 % (11.5-14.5)
[2024-05-05 09:21] LABS: Alanine Aminotransferase 13 U/L (6-35); Albumin Level 3.2 g/dL (3.5-5.1); Alkaline Phosphatase 71 U/L (38-126); Anion Gap 8 mmol/L (4-12); Aspartate Amino Transferase 26 U/L (14-36); Bilirubin,Total 0.3 mg/dL (0.2-1.3); Blood Urea Nitrogen 3 mg/dL (7-17); Carbon Dioxide 22 mmol/L (22-30); Chloride 109 mmol/L (98-107); Estimated CRCL calculation 42 ml/min; Estimated Glomerular Filt Rate 34; Glucose 89 mg/dL (65-110); Potassium 3.7 mmol/L (3.4-5.0); Prothrombin Time 14.1 Seconds (11.1-14.7); Sodium 139 mmol/L (137-145)
[2024-05-05] MEDS: metroNIDAZOLE 500 MG TABLET PO ×2 (10:29→20:10)
[2024-05-05] MEDS: SIMETHICONE 80 MG TAB.CHEW PO ×2 (10:29→20:10)
[2024-05-05] MEDS: SULFAMETHOXAZOLE/TRIMETHOPRIM 800/160 MG DS TABLET 1 TAB PO ×2 (10:29→20:10)
[2024-05-05] MEDS: FAMOTIDINE 20 MG/2 ML VIAL IV PUSH ×2 (10:47→20:10)
[2024-05-05] MEDS: LIDOCAINE 5% PATCH 1 PATCH TRANSDERM (10:48)
[2024-05-05] MEDS: SODIUM CHLORIDE 0.9% IV 1,000 ML 125 ML IV CONT ×2 (10:49→22:50)
--- NOTE | 2024-05-05 11:52 | P.CONUR_ITS ---
Assessment and Plan Assessment and plan (1) Left ureteral injury: Code(s): S37.10XA - Unspecified injury of ureter, initial encounter Status: Acute Assessment and Plan: - Identified on 05/05/24 abdominal MRI WO contrast - s/p 03/25/24 (2) HEMALATHA (acute kidney injury): Code(s): N17.9 - Acute kidney failure, unspecified Status: Acute Assessment and Plan: - Cr 1.67 from 1.8 on admission - Patient denies previous renal dysfunction (3) Free fluid in pelvis: Code(s): R18.8 - Other ascites Status: Acute Assessment and Plan: - s/p paracentesis x3 in the past 7 days (cultures pending) (4) Hydronephrosis: Code(s): N13.30 - Unspecified hydronephrosis Status: Acute Plan - Patient requires cystoscopy, ureteroscopy for further evaluation of left ureteral injury with potential need for ureteral stent or nephrostomy tube depending on intra-op findings - Patient has had food/drink today which delays any potential OR intervention to later this evening or tomorrow - Recommend transitioning back to IV antibiotics - Case discussed with Dr. Gabriel. He is working on coordinating plan with urologist who is covering this weekend vs. recommending transfer to higher level of care. NPO for now. Urology Consult Note HPI Date Seen: 05/05/24 Requesting Physician: Flori Andersen MD Primary Care Provider: Jimena Mehta, Consult Narrative Reason for consult: Left ureteral injury, HEMALATHA Narrative: Devorah Darden is a very pleasant 38 year old female with no previous urological history admitted 04/28/24 for evaluation of fever, left flank pain, LLQ abdominal pain, nausea, vomiting. She is s/p for the of her first child 03/25/24 at [facility]. Workup thus far significant for recurrent ascites requiring paracentesis x3, HEMALATHA (Cr 1.4-1.8), intermittent fever. 04/27 and 05/04 UA does not appear grossly infected. 04/28 blood cultures negative, repeat 05/03 no growth to date. She is on oral Flagyl/Bactrim. 05/04 cystogram negative for bladder injury. Abdominal MRI without contrast this morning shows possible left ureteral leak/injury, moderate ascites, loculated 7cm fluid collection along the left uterus. Urology consulted for further evaluation. Patient comfortable on exam, no acute distress. She reports persistent LLQ abdominal tenderness, abdominal bloating, and waves of nausea. She denies gross hematuria, flank tenderness, dysuria. Nonsmoker. Denies personal and family history of malignancy. Last oral intake was this morning, breakfast + snacks. Review of Systems 2 Review of Systems: All systems reviewed & are unremarkable except as noted in HPI and below PMFSH Past Medical History Medical History (Updated 05/05/24 @ 12:10 by Camille Skinner APRN) History of TB (tuberculosis) Treated in 2021 Hyperthyroidism HPV (human papilloma virus) infection Surgical History Surgical History (Updated 04/28/24 @ 11:16 by Flori Andersen MD) Status post bilateral salpingectomy 04/04 Status post primary low transverse section 04/04 Family History Family History Grandparent Cerebrovascular accident Diabetes mellitus Social History Social History Smoking status: Never smoker Second hand tobacco smoke exposure: No Substance use: never Do You Feel Safe in your Home?: Yes Lack of Transportation: No Lack of Food: Never True Current Housing: I Have Housing Concerned About Future Housing: No Difficulty Paying Gas/Electric Bills: No Difficulty Paying for Meds: No Currently Unemployed: No Education: High School Diploma/GED Difficulty w/ Childcare or Family Care: No Spiritual care concerns: No Meds Home Medications and Allergies Home Medications ?Medication ?Instructions ?Recorded ?Confirmed ?Type valacyclovir 500 mg tablet 500 mg PO DAILY PRN itching 03/23/24 04/28/24 History Allergies Allergy/AdvReac Type Severity Reaction Status Date / Time minocycline Allergy Rash Verified 04/28/24 07:26 Vital Signs Vital Signs - 24 hr 05/04/24 16:00 05/04/24 16:00 05/04/24 20:56 Temperature 98.8 F 97.9 F Pulse Rate 94 98 Respiratory Rate 16 18 Blood Pressure 95/65 L 106/60 Pulse Oximetry 99 97 Oxygen Delivery Room Air 05/05/24 04:12 05/05/24 07:30 Temperature 97.5 F L 97.5 F L Pulse Rate 83 108 H Respiratory Rate 18 18 Blood Pressure 109/67 112/70 Pulse Oximetry 98 98 Oxygen Delivery Exam 2 Const: General: comfortable and no acute distress HENMT: Face/Nose/Sinus: Normal nares present Eyes: General: appearance normal, both eyes and all related structures Resp: Effort & Inspection: normal respiratory effort GI: Other: LLQ tender to palpation Abdomen softly distended : Bimanual exam- vagina & uterus: bladder normal to palpation Other: Negative CVA tenderness Skin: General skin exam: normal color Neuro: Speech: normal speech Psych: Speech and movement: Normal speech and movement present Affect: n ormal affect Results Labs 05/05/24 09:00 05/05/24 09:00 Labs: Short CBC 05/05/24 Range/Units 09:00 WBC 7.0 (4.5-10.0) K/mm3 Hgb 10.1 L (12.0-15.0) g/dL Hct 32.0 L (37.0-47.0) % Plt Count 369 (150-375) k/mm3 BMP 05/05/24 09:00 Sodium 139 Potassium 3.7 Chloride 109 H Carbon Dioxide 22 BUN 3 L Creatinine 1.67 H Glucose 89 Calcium 9.0 Liver Function 05/04/24 05/05/24 Range/Units 11:49 09:00 Total Bilirubin 0.3 0.3 (0.2-1.3) mg/dL Direct Bilirubin 0.0 (0-0.3) mg/dL AST 29 26 (14-36) U/L ALT 14 13 (6-35) U/L Alkaline Phosphatase 67 71 (38-126) U/L Albumin 3.1 L 3.2 L (3.5-5.1) g/dL Urine 05/04/24 Range/Units 12:41 Urine Color Yellow (Yellow) Urine Appearance Cloudy H (Clear) Urine pH 7.0 (5.0-9.0) Ur Specific [place] 1.008 (1.001-1.035) Urine Protein Negative (Negative) mg/dL Urine Glucose (UA) Negative (Negative) mg/dL
--- NOTE | 2024-05-05 12:44 | P.PNOB_ITS ---
SENIOR INFRASTRUCTURE ARCHITECT - A/P Assessment and plan (1) Urinary tract infection: Code(s): N39.0 - Urinary tract infection, site not specified Status: Acute Assessment and Plan: Discussed with Dr. Gabriel and plan to place stents today. If unable, plan nephrostomy tube by radiology. Patient may need to be transferred to [place]. Case reviewed in detail with Dr. Fletcher who is covering as of now. Dr. Gabriel aware of coverage. Patient and her mother informed of plan. (2) Elevated serum creatinine: Code(s): R79.89 - Other specified abnormal findings of blood chemistry Status: Acute (3) Abscess, intra-abdominal, postoperative: Code(s): T81.43XA - Infection following a procedure, organ and space surgical site, initial encounter; K65.1 - Peritoneal abscess Status: Acute Assessment and Plan: Still fluid collection in pelvis. Asymptomatic for infection. Could be from ureter injury. Postoperative Procedures: Procedures Operation Date: 05/02/24 11:30 <No data on this case meets the specified criteria> Operation Date: 05/05/24 17:30 <No data on this case meets the specified criteria> Time Spent With Patient Time: Total time spent is greater than 50% in coordination of care (as documented) at patient's floor/unit and/or counseling patient: Time with patient: 15 - 25 minutes SENIOR INFRASTRUCTURE ARCHITECT- PN:Subj Post-Op Subjective Date/time seen: 05/05/24 12:44 Interval history: Patient without complaint. No pain. No nausea. Exam 2 Narrative: abdomen soft, nt mild distension Const: General: comfortable SENIOR INFRASTRUCTURE ARCHITECT - PN: Obj Data Vital Signs Vital Signs: Vital Signs - 24 hr 05/04/24 16:00 05/04/24 16:00 05/04/24 20:56 Temperature 98.8 F 97.9 F Pulse Rate 94 98 Respiratory Rate 16 18 Blood Pressure 95/65 L 106/60 Pulse Oximetry 99 97 Oxygen Delivery Room Air 05/05/24 04:12 05/05/24 07:30 Temperature 97.5 F L 97.5 F L Pulse Rate 83 108 H Respiratory Rate 18 18 Blood Pressure 109/67 112/70 Pulse Oximetry 98 98 Oxygen Delivery Intake/Output Intake/Output: Intake & Output 03/25/25 03/26/25 03/27/25 03/28/25 23:59 23:59 23:59 23:59 Intake Total 1265 1265 650 500 Output Total 2950 900 3450 300 Balance -1685 365 -2800 200 Meds/Results Medications: Active Medications Generic Name Dose Route Start Last Admin Trade Name Freq PRN Reason Stop Dose Admin Acetaminophen 1,000 mg 04/28/24 10:32 05/02/24 23:14 Acetaminophen 500 Mg Tablet PO 1,000 mg Q6H PRN Administration pain 1-5 Diphenhydramine HCl 25 mg 04/30/24 13:18 Diphenhydramine Hcl Inj 50 Mg/Ml Vial IV PUSH Q12H PRN Itching Famotidine 20 mg 05/01/24 09:00 05/05/24 10:47 Famotidine 20 Mg/2 Ml Vial IV PUSH 20 mg Q12HR SABI Administration Hydroxyzine HCl 25 mg 05/03/24 02:27 Hydroxyzine Hcl 25 Mg Tablet PO Q6H PRN Anxiety Sodium Chloride 1,000 mls @ 125 mls/hr 05/05/24 09:45 05/05/24 10:49 Normal Saline Iv IV CONT 125 mls/hr .Q8H SABI Administration Ibuprofen 600 mg 04/28/24 10:32 05/04/24 12:03 Ibuprofen 600 Mg Tablet PO 600 mg Q6H PRN Administration pain 1-5 breakthrough Lidocaine 1 patch 05/04/24 11:40 05/05/24 10:48 Lidocaine 5% Patch TRANSDERM 1 patch DAILY SABI Administration Metronidazole 500 mg 05/04/24 11:30 05/05/24 10:29 Metronidazole 500 Mg Tablet PO 05/09/24 11:29 500 mg Q12HR SABI Administration Miconazole Nitrate 1 applic 05/03/24 21:53 Miconazole Nitrate 2% Cream 30 Gm Tube TOPICAL BID PRN itching Morphine Sulfate 2 mg 04/28/24 04:43 Morphine Sulfate (*Crx) 2 Mg/Ml Inj IV PUSH Q2H PRN Pain Rated 7-10 Ondansetron HCl 4 mg 04/28/24 10:22 Ondansetron Inj 4 Mg/2 Ml Vial IV PUSH Q4H PRN Nausea And Vomiting Perflutren Lipid Microsphere 0 ml 05/04/24 10:20 Perflutren Lipid Microspheres 1.5 Ml Vial Diluted To 10 Ml Total Volume IV PUSH 05/07/24 10:21 ONCE PRN adequate visualization Protocol Simethicone 80 mg 05/01/24 09:00 05/05/24 10:29 Simethicone 80 Mg Tab.Chew PO 80 mg QID SABI Administration Sodium Chloride 6 ml 05/06/24 05:00 Sodium Chlor 3% 15 Ml Neb (Respiratory Therapy) INHALATION 05/08/24 05:01 DAILY@0500 SABI Trimethoprim/Sulfamethoxazole 1 tab 05/04/24 11:35 05/05/24 10:29 Sulfamethoxazole/Trimethoprim 800/160 Mg Ds Tablet PO 1 tab Q12HR SABI Administration Radiology Results: ITS Impressions Abdomen/Pelvis CT 05/01/24 08:18 IMPRESSION: Redemonstration of a rim-enhancing tubular-shaped collection in the left hemipelvis which has increased in size in a single dimension but is otherwise unchanged. Increased intra-abdominal ascites when compared with previous study. Interval development of bibasilar atelectasis. Interval worsening of the bilateral hydroureteronephrosis with decompression of the patient's bladder. Pelvis CT 05/02/24 13:20 IMPRESSION: 1. Moderate volume of ascites, decreased from 05/01/2024. A repeat paracentesis has since been performed. 2. No significant distinct fluid collection in the left adnexa. The drain placement was canceled. 3. Thickened endometrial complex status post section. This finding may be hematoma or infection. Retained products of conception are not excluded. Paracentesis Ultrasound 05/04/24 10:05 IMPRESSION: 1. Successful ultrasound-guided paracentesis yielding 1100 mL of yellow fluid. Cystogram 05/04/24 14:08 IMPRESSION: 1. Normal cystogram. Abdomen Ultrasound 05/04/24 20:15 IMPRESSION: 1: Gallbladder wall thickening with gallstones. 2: Moderate ascites. 3: No evidence for portal venous thrombosis. Arterial/Peripheral Duplex 05/04/24 20:15 IMPRESSION: 1: Gallbladder wall thickening with gallstones. 2: Moderate ascites. 3: No evidence for portal venous thrombosis. Abdomen MRI 05/05/24 09:04 IMPRESSION: 1. Moderate amount of ascites with no change in size or configuration since 05/01/2024 in a 7.2 x 1.4 x 1.5 cm loculated fluid collection along the left side of the uterus. Review of prior CT imaging demonstrates peripheral increased attenuation of the loculated fluid collection as well as more subtle increased attenuation of the ascites. This suggests possibility of urine leak potentially from the left ureter. Correlate for any levels within the ascites and consider CT urogram for further evaluation. 2. Persistent mild bilateral hydroureteronephrosis which extends into the pelvis where the ureters taper without evident obstructing stones and suggesting this is likely secondary to inflammation related to the recent surgery. 3. Postoperative changes at the uterus consistent with reported prior section and bilateral salpingectomies. Pelvis MRI 05/05/24 09:04 IMPRESSION: 1. Moderate amount of ascites with no change in size or configuration since 05/01/2024 in a 7.2 x 1.4 x 1.5 cm loculated fluid collection along the left side of the uterus. Review of prior CT imaging demonstrates peripheral increased attenuation of the loculated fluid collection as well as more subtle increased attenuation of the ascites. This suggests possibility of urine leak potentially from the left ureter. Correlate for any levels within the ascites and consider CT urogram for further evaluation. 2. Persistent mild bilateral hydroureteronephrosis which extends into the pelvis where the ureters taper without evident obstructing stones and suggesting this is likely secondary to inflammation related to the recent surgery. 3. Postoperative changes at the uterus consistent with reported prior section and bilateral salpingectomies. Chest X-Ray 05/05/24 12:31 IMPRESSION: No focal infiltrate or effusion. Labs 05/05/24 09:00 05/05/24 09:00 Labs: Laboratory Results - last 24 hr 05/04/24 05/04/24 05/04/24 11:06 12:41 16:53 WBC RBC Hgb Hct MCV MCH MCHC RDW Plt Count MPV ESR PT INR Sodium Potassium Chloride Carbon Dioxide Anion Gap BUN Creatinine Estim Creat Clear Calc Estimated GFR Glucose Lactic Acid Calcium Total Bilirubin AST ALT Alkaline Phosphatase C-Reactive Protein Total Protein Albumin CA 125 Antigen 101 H Urine Color Yellow Urine Appearance Cloudy H Urine pH 7.0 Ur Specific [place] 1.008 Urine Protein Negative Urine Glucose (UA) Negative Urine Ketones Negative Ur Blood (Man) 1+ H Urine Nitrate Negative Urine Bilirubin Negative Urine Urobilinogen 0.2 Add Ur Microanalysis Reviewed Leukocyte Esterase Rfl Trace H Urine RBC 0-2 Urine WBC 0-5 Ur Squamous Epith Cells Moderate Urine Bacteria None seen Urine Casts 0-2 Peritoneal Source Peritoneal fluid Peritoneal Color Yellow Peritoneal Appearance Hazy A Peritoneal RBC < 2000 Periton Nuc Cells 581 H Periton Neutrophils 30 H [place] Lymphocytes 37 Periton Mesothelial 6 Periton Macrophages 27 Hepatitis A IgM Ab Hep Bs Antigen Hep B Core IgM Ab Hepatitis C Ab Screen 05/04/24 05/04/24 05/05/24 18:51 22:02 09:00 WBC 7.0 RBC 3.60 L Hgb 10.1 L Hct 32.0 L MCV 88.9 MCH 28.1 MCHC 31.6 L RDW 14.6 H Plt Count 369 MPV 10.6 H ESR 57 H PT 14.1 INR 1.0 Sodium 139 Potassium 3.7 Chloride 109 H Carbon Dioxide 22 Anion Gap 8 BUN 3 L Creatinine 1.67 H Estim Creat Clear Calc 42 Estimated GFR 34 L Glucose 89 Lactic Acid 0.9 Calcium 9.0 Total Bilirubin 0.3 AST 26 ALT 13 Alkaline Phosphatase 71 C-Reactive Protein 1.6 H Total Protein 6.0 L Albumin 3.2 L CA 125 Antigen Urine Color Urine Appearance Urine pH Ur Specific [place] Urine Protein Urine Glucose (UA) Urine Ketones Ur Blood (Man) Urine Nitrate Urine Bilirubin Urine Urobilinogen Add Ur Microanalysis Leukocyte Esterase Rfl Urine RBC Urine WBC Ur Squamous Epith Cells Urine Bacteria Urine Casts Peritoneal Source Peritoneal Color Peritoneal Appearance Peritoneal RBC Periton Nuc Cells Periton Neutrophils Periton Lymphocytes Periton Mesothelial Periton Macrophages Hepatitis A IgM Ab Negative Hep Bs Antigen Negative Hep B Core IgM Ab Negative Hepatitis C Ab Screen Negative
--- NOTE | 2024-05-05 13:51 | WPDHPUPDATE1 ---
History and Physical Update Update Date/Time: 05/05/24 13:51 History and Physical has been reviewed, including an updated exam of the patient. There are NO changes in the patient's condition. Risks, benefits, and alternatives have been discussed and questions answered. Patient agrees to proceed with procedure. Proceed with cystoscopy, bilateral retrograde pyelograms, bilateral ureteral stent placement
[2024-05-05] MEDS: LACTATED RINGERS 1,000 ML 30 ML IV CONT ×2 (14:15→15:15)
--- NOTE | 2024-05-05 14:25 | WPDANESEPPF ---
Anes - Initial Pre Proc Eval Procedure: Operation Date: 05/02/24 11:30 Proposed Procedures p Computed Tomography Guided Abscess Catheter Placement - Tomasz Quiros MD Operation Date: 05/05/24 17:30 Proposed Procedures p Cystoscopy, Possible Bilateral Retrograde Pyelogram, Bilateral Stent Placement(Bilateral) - Link Gabriel MD Date/Time: 05/05/24 14:25 Surgeon: Flori Andersen MD Pre Op Diagnosis: adnexa abcess s/p c.section, hydronephrosis with Patient Data Age: 38 Gender: F Height: 1.65 m Weight: 75.3 kg Last Vital Signs Temp 36.4 C L 05/05/24 07:30 Pulse 108 H 05/05/24 07:30 Resp 18 05/05/24 07:30 BP 112/70 05/05/24 07:30 Pulse Ox 98 05/05/24 07:30 O2 Del Method Room Air 05/04/24 16:00 Allergies Allergy/AdvReac Type Severity Reaction Status Date / Time minocycline Allergy Rash Verified 04/28/24 07:26 Home Medications ?Medication ?Instructions ?Recorded ?Confirmed ?Type valacyclovir 500 mg tablet 500 mg PO DAILY PRN itching 03/23/24 04/28/24 History Laboratory Tests 05/04/24 05/04/24 05/04/24 11:06 16:53 18:51 WBC RBC Hgb Hct MCV MCH MCHC RDW Plt Count MPV ESR 57 H mm/hr (0-20) PT INR Sodium Potassium Chloride Carbon Dioxide Anion Gap BUN Creatinine Estim Creat Clear Calc Estimated GFR Glucose Lactic Acid 0.9 mmol/L (0.7-2.0) Calcium Total Bilirubin AST ALT Alkaline Phosphatase C-Reactive Protein 1.6 H mg/dL (<1.0) Total Protein Albumin CA 125 Antigen 101 H U/mL (<35) Peritoneal Source Peritoneal fluid Peritoneal Color Yellow (Colorless) Peritoneal Appearance Hazy A (Clear) Peritoneal RBC < 2000 /uL (0-27329) Periton Nuc Cells 581 H /uL (0-500) Periton Neutrophils 30 H % (0-25) Periton Lymphocytes 37 % Periton Mesothelial 6 % Periton Macrophages 27 % Peritoneal Tot Protein Pending Peritoneal LDH Pending Peritoneal Glucose Pending Hepatitis A IgM Ab Hep Bs Antigen Hep B Core IgM Ab Hepatitis C Ab Screen 05/04/24 05/05/24 22:02 09:00 WBC 7.0 K/mm3 (4.5-10.0) RBC 3.60 L M/mm3 (4.2-5.4) Hgb 10.1 L g/dL (12.0-15.0) Hct 32.0 L % (37.0-47.0) MCV 88.9 fl (80-100) MCH 28.1 pg (26-34) MCHC 31.6 L g/dl (32-36) RDW 14.6 H % (11.5-14.5) Plt Count 369 k/mm3 (150-375) MPV 10.6 H fl (7.4-10.4) ESR PT 14.1 Seconds (11.1-14.7) INR 1.0 Sodium 139 mmol/L (137-145) Potassium 3.7 mmol/L (3.4-5.0) Chloride 109 H mmol/L (98-107) Carbon Dioxide 22 mmol/L (22-30) Anion Gap 8 mmol/L (4-12) BUN 3 L mg/dL (7-17) Creatinine 1.67 H mg/dL (0.7-1.0) Estim Creat Clear Calc 42 ml/min Estimated GFR 34 L (59 - ) Glucose 89 mg/dL (65-110) Lactic Acid Calcium 9.0 mg/dL (8.4-10.2) Total Bilirubin 0.3 mg/dL (0.2-1.3) AST 26 U/L (14-36) ALT 13 U/L (6-35) Alkaline Phosphatase 71 U/L (38-126) C-Reactive Protein Total Protein 6.0 L g/dL (6.3-8.2) Albumin 3.2 L g/dL (3.5-5.1) CA 125 Antigen Peritoneal Source Peritoneal Color Peritoneal Appearance Peritoneal RBC Periton Nuc Cells Periton Neutrophils Periton Lymphocytes Periton Mesothelial Periton Macrophages Peritoneal Tot Protein Peritoneal LDH Peritoneal Glucose Hepatitis A IgM Ab Negative (Negative) Hep Bs Antigen Negative (Negative) Hep B Core IgM Ab Negative (Negative) Hepatitis C Ab Screen Negative (Negative) Patient hx anesthesia problems: none Family hx anesthesia problems: none Results Review: All pre-operative results and documents have been reviewed as part of the pre-operative evaluation. [facility] Past Medical History Medical History History of TB (tuberculosis) Treated in 2021 Hyperthyroidism HPV (human papilloma virus) infection Surgical History Surgical History Status post bilateral salpingectomy 04/04 Status post primary low transverse section 04/04 Family History Family History Grandparent Cerebrovascular accident Diabetes mellitus Social History Social History Smoking status: Never smoker Second hand tobacco smoke exposure: No Substance use: never Do You Feel Safe in your Home?: Yes Lack of Transportation: No Lack of Food: Never True Current Housing: I Have Housing Concerned About Future Housing: No Difficulty Paying Gas/Electric Bills: No Difficulty Paying for Meds: No Currently Unemployed: No Education: High School Diploma/GED Difficulty w/ Childcare or Family Care: No Spiritual care concerns: No Anes - Eval Final PreProcedure Day of Procedure 05/05/24 14:25 Patient weight: overweight Heart: regular rate and rhythm Lungs: clear to auscultation Airway: Mallampati scale class II Neurological: alert and oriented Last oral intake: 4 hours ASA classification: II Emergent: yes Anesthetic plan: proceed Anesthesia type and monitoring: general ETT and standard monitoring Results Review: All pre-operative results and documents have been reviewed as part of the pre-operative evaluation. Informed Consent: The patient's anesthetic plan and its attendant risks and benefits were discussed with the patient/family/POA. Questions were solicited and answers provided to the satisfaction of the patient/family/POA.
--- NOTE | 2024-05-05 15:06 | W.PM.PROC2 ---
Procedure Note - Detailed Date of Procedure 05/05/24 Pre-op Diagnosis adnexa abcess s/p c.section, hydronephrosis with possible ureteral injury Post-op Diagnosis Same Procedure Performed Cystoscopy, bilateral retrograde pyelograms, left ureteroscopy, right ureteral stent placement 4.8 Salvadorean contour Surgeon Link Gabriel MD Anesthesia General Findings Mild right hydroureter, transected distal left ureter Description of Procedure Patient was taken to the operative suite correctly identified. Once anesthesia was obtained she was placed in dorsal lithotomy position and prepped and draped usual sterile fashion. Twenty-two Salvadorean scope was inserted into the bladder. There are no tumors noted. Both ureteral orifices visualized. The right ureteral orifice was cannulated with a [place] and a pyelogram was performed. Contrast made its way all the way up to the kidney. There was some mild dilatation. This possibly is secondary to her recent but given the situation I did place a 4.8 [place] stent by placing a Sensor wire up into the kidney and then placing the stent. Proximal end coiled in the renal pelvis and the distal in the bladder. The left ureteral orifice was cannulated with a could ureteral catheter. Retrograde shows contrast extravasated into a pocket. Initially I thought this was possibly then communicating with the more proximal end of the ureter. A rigid ureteral scope was then inserted. The distal ureter was fairly open going into a cavity. I could not see any evidence of another opening consistent with the proximal ureter. Some clips or sutures were noted in this cavity. Contrast was injected in it was basically a cavity that did not reflux into anything else. At this point time and the procedure was terminated. Patient is taken recovery stable condition after 2% viscous lidocaine was inserted into the urethra. Patient will have a left percutaneous nephrostomy tube placed in the morning. Will refer her out for definitive management of this transected ureter which most likely require a reimplant this completes dictation. Please send a copy of op note to my office Estimated Blood Loss 0 Urine Output 300 Drains Yes Packing No Pathology None sent Complications No immediate complications Condition Stable Disposition PACU
[2024-05-05] MEDS: ONDANSETRON INJ 4 MG/2 ML VIAL IV PUSH (16:35)
[2024-05-05] MEDS: diphenhydrAMINE HCl INJ 50 MG/ML VIAL 25 MG IV PUSH (20:17)
[2024-05-05] MEDS: IBUPROFEN 600 MG TABLET PO (22:50)
[2024-05-06 04:40] VITALS: BP 106/70; PULSE 104; RESP 18; TEMP 36.8; O2SAT 98
[2024-05-06] MEDS: MORPHINE SULFATE (*CRX) 2 MG/ML INJ IV PUSH ×2 (04:41→11:48)
[2024-05-06 08:00] VITALS: PULSE 99; RESP 18; O2SAT 95
[2024-05-06 08:10] VITALS: BP 109/71; PULSE 99; RESP 18; TEMP 37.2; O2SAT 95
[2024-05-06] MEDS: SODIUM CHLORIDE 0.9% IV 1,000 ML 125 ML IV CONT (08:30)
[2024-05-06] MEDS: SIMETHICONE 80 MG TAB.CHEW PO ×3 (08:49→21:30)
[2024-05-06] MEDS: SULFAMETHOXAZOLE/TRIMETHOPRIM 800/160 MG DS TABLET 1 TAB PO ×2 (08:49→21:30)
[2024-05-06] MEDS: metroNIDAZOLE 500 MG TABLET PO ×2 (08:49→21:30)
--- NOTE | 2024-05-06 09:20 | PM.IMPN ---
Progress Note: A&P Assessment and Plan (1) Free fluid in pelvis: Code(s): R18.8 - Other ascites Status: Acute Assessment and Plan: Left Ureteral Injury Underwent Cystoscopy, bilateral retrograde pyelograms, left ureteroscopy, right ureteral stent placement 4.8 [place] contour As per urology: Patient will have a left percutaneous nephrostomy tube placed 05/06. Definitive management of this transected ureter which most likely require a reimplant. Discussed with (Urologist) Left Nephrostomy tube placement and repair left ureteral in next 6 weeks (Urologist) will review the case and informs whether he can do it or not Otherwise patient needs to go [facility] or [place] Further management as per [place] Room Supervisor and Urology Discussed the case with and (2) Ascites: Code(s): R18.8 - Other ascites Status: Acute Assessment and Plan: See above (3) Elevated serum creatinine: Code(s): R79.89 - Other specified abnormal findings of blood chemistry Status: Acute Assessment and Plan: See above (4) Abscess, intra-abdominal, postoperative: Code(s): T81.43XA - Infection following a procedure, organ and space surgical site, initial encounter; K65.1 - Peritoneal abscess Status: Acute Assessment and Plan: See above (5) Left ureteral injury: Code(s): S37.10XA - Unspecified injury of ureter, initial encounter Status: Acute Assessment and Plan: See above Subjective Date/time seen: 05/06/24 09:20 Interval history: I had an extensive conversation with the patient and her mother. I explained the ongoing events and answered all of their questions. Yesterday, after finding the left ureteral injury, I was able to talk to Urology and OB-PROBATION AND PATROL AGENT and discuss the plan. Today, I called (urologist), who is on the call, and asked about the next plan. He recommends Nephrostomy tube placement and, six weeks later, left ureteral repair either here at [place] by (he will review the case and let us know whether he can do it ) or at [facility] or [place]. I spoke to and updated her on the events. She reported that she was not risk management professional and advised me to speak with an on-call physician. I talked to and advised the project economist to formulate a plan with a urology or urogynecologist before the discharge so the patient could have continuity of care. He agreed to the plan. I explained the ongoing events to the nursing team, including the charge nurse. I recommend that the primary team (project economist) discuss with the patient family and formulate the next steps. Review of Systems Review of Systems: All systems reviewed & are unremarkable except as noted in HPI and below Eyes: Eyes: Denies blurry vision ENT: Reports Normal hearing present Cardiovascular: Cardiovascular: Denies chest pain Respiratory: Respiratory: Denies chest congestion Gastrointestinal: Gastrointestinal: Denies abdominal pain Genitourinary: Genitourinary: Denies hematuria Neurologic: Reports Normal hearing present Psychiatric: Psychiatric: Denies anxiety Exam Const: General: comfortable Eyes: General: appearance normal, both eyes and all related structures Resp: Effort & Inspection: normal respiratory effort Auscultation: clear to auscultation bilaterally Cardio: Rate: regular rate Rhythm: regular rhythm GI: Auscultation: normal bowel sounds Skin: General skin exam: normal color Neuro: Cranial nerves: Yes Normal hearing present Psych: Affect: Anxious affect present Objective Data Vital Signs Vital Signs: Vital Signs - 24 hr 05/05/24 14:15 05/05/24 15:15 05/05/24 15:31 Temperature 98.1 F 98.3 F Pulse Rate 101 H 84 107 H Respiratory Rate 14 20 14 Blood Pressure 111/64 107/84 110/80 Pulse Oximetry 99 99 100 Oxygen Delivery Room Air Simple Face Mask Simple Face Mask Oxygen Flow Rate 7 7 05/05/24 15:45 05/05/24 20:10 05/05/24 20:10 Temperature 98.1 F 98.2 F Pulse Rate 92 94 Respiratory Rate 16 18 Blood Pressure 94/64 L 109/78 Pulse Oximetry 95 98 Oxygen Delivery Room Air Oxygen Flow Rate 05/06/24 04:40 05/06/24 08:10 Temperature 98.2 F 99.0 F Pulse Rate 104 H 99 Respiratory Rate 18 18 Blood Pressure 106/70 109/71 Pulse Oximetry 98 95 Oxygen Delivery Oxygen Flow Rate Intake/Output Intake/Output: Intake & Output 05/03/24 05/04/24 05/05/24 05/06/24 23:59 23:59 23:59 23:59 Intake Total 0597 846 4124 Output Total 900 3450 1600 350 Balance 365 -2800 240 -350 Meds/Results Medications: Active Medications Generic Name Dose Route Start Last Admin Trade Name Freq PRN Reason Stop Dose Admin Acetaminophen 1,000 mg 04/28/24 10:32 05/02/24 23:14 Acetaminophen 500 Mg Tablet PO 1,000 mg Q6H PRN Administration pain 1-5 Diphenhydramine HCl 25 mg 04/30/24 13:18 05/05/24 20:17 Diphenhydramine Hcl Inj 50 Mg/Ml Vial IV PUSH 25 mg Q12H PRN Administration Itching Famotidine 20 mg 05/01/24 09:00 05/05/24 20:10 Famotidine 20 Mg/2 Ml Vial IV PUSH 20 mg Q12HR SABI Administration Fentanyl Citrate 25 mcg 05/05/24 14:26 Fentanyl Citrate Inj (*Crx) 100 Mcg/2 Ml Vial IV PUSH Q2M PRN Pain Hydroxyzine HCl 25 mg 05/03/24 02:27 Hydroxyzine Hcl 25 Mg Tablet PO Q6H PRN Anxiety Sodium Chloride 1,000 mls @ 125 mls/hr 05/05/24 09:45 05/05/24 22:50 Normal Saline Iv IV CONT 125 mls/hr .Q8H SABI Administration Ibuprofen 600 mg 04/28/24 10:32 05/05/24 22:50 Ibuprofen 600 Mg Tablet PO 600 mg Q6H PRN Administration pain 1-5 breakthrough Lidocaine 1 patch 05/04/24 11:40 05/05/24 10:48 Lidocaine 5% Patch TRANSDERM 1 patch DAILY SABI Administration Metronidazole 500 mg 05/04/24 11:30 05/06/24 08:49 Metronidazole 500 Mg Tablet PO 05/09/24 11:29 500 mg Q12HR SABI Administration Miconazole Nitrate 1 applic 05/03/24 21:53 Miconazole Nitrate 2% Cream 30 Gm Tube TOPICAL BID PRN itching Morphine Sulfate 2 mg 04/28/24 04:43 05/06/24 04:41 Morphine Sulfate (*Crx) 2 Mg/Ml Inj IV PUSH 2 mg Q2H PRN Administration Pain Rated 7-10 Ondansetron HCl 4 mg 04/28/24 10:22 05/05/24 16:35 Ondansetron Inj 4 Mg/2 Ml Vial IV PUSH 4 mg Q4H PRN Administration Nausea And Vomiting Ondansetron HCl 4 mg 05/05/24 14:26 Ondansetron Inj 4 Mg/2 Ml Vial IV PUSH ONCE PRN Nausea Perflutren Lipid Microsphere 0 ml 05/04/24 10:20 Perflutren Lipid Microspheres 1.5 Ml Vial Diluted To 10 Ml Total Volume IV PUSH 05/07/24 10:21 ONCE PRN adequate visualization Protocol Simethicone 80 mg 05/01/24 09:00 05/06/24 08:49 Simethicone 80 Mg Tab.Chew PO 80 mg QID SABI Administration Sodium Chloride 6 ml 05/06/24 05:00 Sodium Chlor 3% 15 Ml Neb (Respiratory Therapy) INHALATION 05/08/24 05:01 DAILY@0500 SABI Trimethoprim/Sulfamethoxazole 1 tab 05/04/24 11:35 05/06/24 08:49 Sulfamethoxazole/Trimethoprim 800/160 Mg Ds Tablet PO 1 tab Q12HR SABI Administration Radiology Results: ITS Impressions Abdomen/Pelvis CT 05/01/24 08:18 IMPRESSION: Redemonstration of a rim-enhancing tubular-shaped collection in the left hemipelvis which has increased in size in a single dimension but is otherwise unchanged. Increased intra-abdominal ascites when compared with previous study. Interval development of bibasilar atelectasis. Interval worsening of the bilateral hydroureteronephrosis with decompression of the patient's bladder. Pelvis CT 05/02/24 13:20 IMPRESSION: 1. Moderate volume of ascites, decreased from 05/01/2024. A repeat paracentesis has since been performed. 2. No significant distinct fluid collection in the left adnexa. The drain placement was canceled. 3. Thickened endometrial complex status post section. This finding may be hematoma or infection. Retained products of conception are not excluded. Paracentesis Ultrasound 05/04/24 10:05 IMPRESSION: 1. Successful ultrasound-guided paracentesis yielding 1100 mL of yellow fluid. Cystogram 05/04/24 14:08 IMPRESSION: 1. Normal cystogram. Abdomen Ultrasound 05/04/24 20:15 IMPRESSION: 1: Gallbladder wall thickening with gallstones. 2: Moderate ascites. 3: No evidence for portal venous thrombosis. Arterial/Peripheral Duplex 05/04/24 20:15 IMPRESSION: 1: Gallbladder wall thickening with gallstones. 2: Moderate ascites. 3: No evidence for portal venous thrombosis. Abdomen MRI 05/05/24 09:04 IMPRESSION: 1. Moderate amount of ascites with no change in size or configuration since 05/01/2024 in a 7.2 x 1.4 x 1.5 cm loculated fluid collection along the left side of the uterus. Review of prior CT imaging demonstrates peripheral increased attenuation of the loculated fluid collection as well as more subtle increased attenuation of the ascites. This suggests possibility of urine leak potentially from the left ureter. Correlate for any levels within the ascites and consider CT urogram for further evaluation. 2. Persistent mild bilateral hydroureteronephrosis which extends into the pelvis where the ureters taper without evident obstructing stones and suggesting this is likely secondary to inflammation related to the recent surgery. 3. Postoperative changes at the uterus consistent with reported prior section and bilateral salpingectomies. Pelvis MRI 05/05/24 09:04 IMPRESSION: 1. Moderate amount of ascites with no change in size or configuration since 05/01/2024 in a 7.2 x 1.4 x 1.5 cm loculated fluid collection along the left side of the uterus. Review of prior CT imaging demonstrates peripheral increased attenuation of the loculated fluid collection as well as more subtle increased attenuation of the ascites. This suggests possibility of urine leak potentially from the left ureter. Correlate for any levels within the ascites and consider CT urogram for further evaluation. 2. Persistent mild bilateral hydroureteronephrosis which extends into the pelvis where the ureters taper without evident obstructing stones and suggesting this is likely secondary to inflammation related to the recent surgery. 3. Postoperative changes at the uterus consistent with reported prior section and bilateral salpingectomies. Chest X-Ray 05/05/24 12:31 IMPRESSION: No focal infiltrate or effusion. Retrograde Pyelogram 05/06/24 06:23 IMPRESSION: 1. 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 2. Mild right hydronephrosis and hydroureter. Right internal ureteral stent in expected position. Labs Labs: Laboratory Results - last 24 hr 05/05/24 09:00 PT 14.1 INR 1.0 Sodium 139 Potassium 3.7 Chloride 109 H Carbon Dioxide 22 Anion Gap 8 BUN 3 L Creatinine 1.67 H Estim Creat Clear Calc 42 Estimated GFR 34 L Glucose 89 Calcium 9.0 Total Bilirubin 0.3 AST 26 ALT 13 Alkaline Phosphatase 71 Total Protein 6.0 L Albumin 3.2 L Hospitalist MIPS Advance Care Plan I have confirmed that the patient's Advanced Care Plan is present, code status is documented, or surrogate decision maker is listed in patient medical record.: Yes Medication Reconciliation I have utilized all available resources to obtain, update and review the patients current medications (includes all prescriptions, OTC, herbals, cannabis, and nutritional supplements).: Yes
--- NOTE | 2024-05-06 09:50 | P.PNOB_ITS ---
OB - PN: Subj Subjective Date/time seen: 05/06/24 09:50 Narrative: Comfortable. Transection of the left ureter was confirmed yesterday by urology. A stent was placed into the right ureter, as well. She is scheduled for nephrostomy tube placement for the immediate term, with the plan to have ureteral reimplantation in the future. OB - PN: Obj Data Labs 05/05/24 09:00 05/05/24 09:00 Imaging Radiologist's impression: Impressions Abdomen MRI 05/05/24 09:04 IMPRESSION: 1. Moderate amount of ascites with no change in size or configuration since 05/01/2024 in a 7.2 x 1.4 x 1.5 cm loculated fluid collection along the left side of the uterus. Review of prior CT imaging demonstrates peripheral increased attenuation of the loculated fluid collection as well as more subtle increased attenuation of the ascites. This suggests possibility of urine leak potentially from the left ureter. Correlate for any levels within the ascites and consider CT urogram for further evaluation. 2. Persistent mild bilateral hydroureteronephrosis which extends into the pelvis where the ureters taper without evident obstructing stones and suggesting this is likely secondary to inflammation related to the recent surgery. 3. Postoperative changes at the uterus consistent with reported prior section and bilateral salpingectomies. Pelvis MRI 05/05/24 09:04 IMPRESSION: 1. Moderate amount of ascites with no change in size or configuration since 05/01/2024 in a 7.2 x 1.4 x 1.5 cm loculated fluid collection along the left side of the uterus. Review of prior CT imaging demonstrates peripheral increased attenuation of the loculated fluid collection as well as more subtle increased attenuation of the ascites. This suggests possibility of urine leak potentially from the left ureter. Correlate for any levels within the ascites and consider CT urogram for further evaluation. 2. Persistent mild bilateral hydroureteronephrosis which extends into the pelvis where the ureters taper without evident obstructing stones and suggesting this is likely secondary to inflammation related to the recent surgery. 3. Postoperative changes at the uterus consistent with reported prior section and bilateral salpingectomies. Chest X-Ray 05/05/24 12:31 IMPRESSION: No focal infiltrate or effusion. Retrograde Pyelogram 05/06/24 06:23 IMPRESSION: 1. 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 2. Mild right hydronephrosis and hydroureter. Right internal ureteral stent in expected position. OB - PN A/P Assessment and Plan (1) Transection of ureter: Code(s): S37.10XA - Unspecified injury of ureter, initial encounter Status: Acute Assessment and Plan: A: POD#42 after delivery, now with diagnosis of transected left ureter. P: Urology has recommended left nephrostomy, as above, to be placed by interventional radiology. Plan will be for ureteral reimplantation in the future. I had a lengthy conversation with the patient and her mother today and hopefully have answered all their questions for now. I am covering for Dr. Andersen -- I have discussed the patient's care with her today as well. Plan day: 42 Time Spent With Patient Time: Total time spent is greater than 50% in coordination of care (as documented) at patient's floor/unit and/or counseling patient: Time with patient: 25 - 35 minutes Exam 2 Narrative: AVSS I/O OK ABD soft, nontender. Incisions c/d/i. EXT nontender
[2024-05-06 09:54] LABS: Hematocrit 30.5 % (37.0-47.0); Hemoglobin 9.6 g/dL (12.0-15.0); Mean Corpuscular HGB Conc 31.5 g/dl (32-36); Mean Corpuscular Hemoglobin 27.7 pg (26-34); Mean Corpuscular Volume 87.9 fl (80-100); Mean Platelet Volume 10.2 fl (7.4-10.4); Platelet Count Result 363 k/mm3 (150-375); Red Blood Count 3.47 M/mm3 (4.2-5.4); Red Cell Distribution Width 14.7 % (11.5-14.5); White Blood Count 9.8 K/mm3 (4.5-10.0)
[2024-05-06 10:05] LABS: Alanine Aminotransferase 14 U/L (6-35); Albumin Level 3.2 g/dL (3.5-5.1); Alkaline Phosphatase 66 U/L (38-126); Anion Gap 11 mmol/L (4-12); Aspartate Amino Transferase 22 U/L (14-36); Bilirubin,Total 0.3 mg/dL (0.2-1.3); Blood Urea Nitrogen 5 mg/dL (7-17); Calcium 8.7 mg/dL (8.4-10.2); Carbon Dioxide 18 mmol/L (22-30); Chloride 110 mmol/L (98-107); Estimated CRCL calculation 44 ml/min; Estimated Glomerular Filt Rate 35; Glucose 83 mg/dL (65-110); Potassium 3.6 mmol/L (3.4-5.0); Sodium 139 mmol/L (137-145)
[2024-05-06 11:30] VITALS: BP 109/78; PULSE 95; RESP 18; TEMP 36.6; O2SAT 97
[2024-05-06] MEDS: LIDOCAINE 5% PATCH 1 PATCH TRANSDERM (11:49)
[2024-05-06] MEDS: FAMOTIDINE 20 MG/2 ML VIAL IV PUSH ×2 (11:49→21:30)
[2024-05-06] MEDS: IBUPROFEN 600 MG TABLET PO ×2 (15:39→21:30)
[2024-05-06] MEDS: ACETAMINOPHEN 500 MG TABLET 1000 MG PO (15:39)
--- NOTE | 2024-05-06 16:20 | WPDUROPN2 ---
Progress Note: A&P Assessment and Plan (1) Left ureteral injury: Code(s): S37.10XA - Unspecified injury of ureter, initial encounter Status: Acute (2) HEMALATHA (acute kidney injury): Code(s): N17.9 - Acute kidney failure, unspecified Status: Acute (3) Ascites: Code(s): R18.8 - Other ascites Status: Acute Plan 38-year-old female with left ureteral injury, acute renal insufficiency, bilateral hydronephrosis. She is status post right ureteral stent May 05, 2024, left PCN May 06, 2024. -patient feeling well. She is voiding. She is tolerating diet. -plan a.m. BMP. -likely discharge home tomorrow -patient will need delayed surgical reconstruction. This will be scheduled as an outpatient Subjective Subjective Date/Time Seen: 05/06/24 16:20 Interval history: Left PCN placed earlier today. Patient feeling well. She is voiding no complaints. Exam Narrative: Patient is awake alert. She is no acute distress. She has unlabored breathing. Abdomen soft nontender nondistended. She has a left PCN in place with clear urine. Objective Data Vital Signs Vital Signs: Vital Signs - 24 hr 05/05/24 20:10 05/05/24 20:10 05/06/24 04:40 Temperature 36.8 C 36.8 C Pulse Rate 94 104 H Respiratory Rate 18 18 Blood Pressure 109/78 106/70 Pulse Oximetry 98 98 Oxygen Delivery Room Air 05/06/24 08:10 05/06/24 11:30 Temperature 37.2 C 36.6 C Pulse Rate 99 95 Respiratory Rate 18 18 Blood Pressure 109/71 109/78 Pulse Oximetry 95 97 Oxygen Delivery Intake/Output Intake/Output: Intake & Output 05/03/24 05/04/24 05/05/24 05/06/24 23:59 23:59 23:59 23:59 Intake Total 6276 785 7769 Output Total 900 3450 1600 350 Balance 365 -2800 240 -350 Meds/Results Medications: Active Medications Generic Name Dose Route Start Last Admin Trade Name Freq PRN Reason Stop Dose Admin Acetaminophen 1,000 mg 04/28/24 10:32 05/06/24 15:39 Acetaminophen 500 Mg Tablet PO 1,000 mg Q6H PRN Administration pain 1-5 Diphenhydramine HCl 25 mg 04/30/24 13:18 05/05/24 20:17 Diphenhydramine Hcl Inj 50 Mg/Ml Vial IV PUSH 25 mg Q12H PRN Administration Itching Famotidine 20 mg 05/01/24 09:00 05/06/24 11:49 Famotidine 20 Mg/2 Ml Vial IV PUSH 20 mg Q12HR SABI Administration Fentanyl Citrate 25 mcg 05/05/24 14:26 Fentanyl Citrate Inj (*Crx) 100 Mcg/2 Ml Vial IV PUSH Q2M PRN Pain Hydroxyzine HCl 25 mg 05/03/24 02:27 Hydroxyzine Hcl 25 Mg Tablet PO Q6H PRN Anxiety Sodium Chloride 1,000 mls @ 125 mls/hr 05/05/24 09:45 05/05/24 22:50 Normal Saline Iv IV CONT 125 mls/hr .Q8H SABI Administration Ibuprofen 600 mg 04/28/24 10:32 05/06/24 15:39 Ibuprofen 600 Mg Tablet PO 600 mg Q6H PRN Administration pain 1-5 breakthrough Lidocaine 1 patch 05/04/24 11:40 05/06/24 11:49 Lidocaine 5% Patch TRANSDERM 1 patch DAILY SABI Administration Metronidazole 500 mg 05/04/24 11:30 05/06/24 08:49 Metronidazole 500 Mg Tablet PO 05/09/24 11:29 500 mg Q12HR SABI Administration Miconazole Nitrate 1 applic 05/03/24 21:53 Miconazole Nitrate 2% Cream 30 Gm Tube TOPICAL BID PRN itching Morphine Sulfate 2 mg 04/28/24 04:43 05/06/24 11:48 Morphine Sulfate (*Crx) 2 Mg/Ml Inj IV PUSH 2 mg Q2H PRN Administration Pain Rated 7-10 Ondansetron HCl 4 mg 04/28/24 10:22 05/05/24 16:35 Ondansetron Inj 4 Mg/2 Ml Vial IV PUSH 4 mg Q4H PRN Administration Nausea And Vomiting Ondansetron HCl 4 mg 05/05/24 14:26 Ondansetron Inj 4 Mg/2 Ml Vial IV PUSH ONCE PRN Nausea Perflutren Lipid Microsphere 0 ml 05/04/24 10:20 Perflutren Lipid Microspheres 1.5 Ml Vial Diluted To 10 Ml Total Volume IV PUSH 05/07/24 10:21 ONCE PRN adequate visualization Protocol Simethicone 80 mg 05/01/24 09:00 05/06/24 15:39 Simethicone 80 Mg Tab.Chew PO 80 mg QID SABI Administration Sodium Chloride 6 ml 05/06/24 05:00 Sodium Chlor 3% 15 Ml Neb (Respiratory Therapy) INHALATION 05/08/24 05:01 DAILY@0500 SABI Trimethoprim/Sulfamethoxazole 1 tab 05/04/24 11:35 05/06/24 08:49 Sulfamethoxazole/Trimethoprim 800/160 Mg Ds Tablet PO 1 tab Q12HR SABI Administration Radiology Results: ITS Impressions Abdomen/Pelvis CT 05/01/24 08:18 IMPRESSION: Redemonstration of a rim-enhancing tubular-shaped collection in the left hemipelvis which has increased in size in a single dimension but is otherwise unchanged. Increased intra-abdominal ascites when compared with previous study. Interval development of bibasilar atelectasis. Interval worsening of the bilateral hydroureteronephrosis with decompression of the patient's bladder. Pelvis CT 05/02/24 13:20 IMPRESSION: 1. Moderate volume of ascites, decreased from 05/01/2024. A repeat paracentesis has since been performed. 2. No significant distinct fluid collection in the left adnexa. The drain placement was canceled. 3. Thickened endometrial complex status post section. This finding may be hematoma or infection. Retained products of conception are not excluded. Paracentesis Ultrasound 05/04/24 10:05 IMPRESSION: 1. Successful ultrasound-guided paracentesis yielding 1100 mL of yellow fluid. Cystogram 05/04/24 14:08 IMPRESSION: 1. Normal cystogram. Abdomen Ultrasound 05/04/24 20:15 IMPRESSION: 1: Gallbladder wall thickening with gallstones. 2: Moderate ascites. 3: No evidence for portal venous thrombosis. Arterial/Peripheral Duplex 05/04/24 20:15 IMPRESSION: 1: Gallbladder wall thickening with gallstones. 2: Moderate ascites. 3: No evidence for portal venous thrombosis. Abdomen MRI 05/05/24 09:04 IMPRESSION: 1. Moderate amount of ascites with no change in size or configuration since 05/01/2024 in a 7.2 x 1.4 x 1.5 cm loculated fluid collection along the left side of the uterus. Review of prior CT imaging demonstrates peripheral increased attenuation of the loculated fluid collection as well as more subtle increased attenuation of the ascites. This suggests possibility of urine leak potentially from the left ureter. Correlate for any levels within the ascites and consider CT urogram for further evaluation. 2. Persistent mild bilateral hydroureteronephrosis which extends into the pelvis where the ureters taper without evident obstructing stones and suggesting this is likely secondary to inflammation related to the recent surgery. 3. Postoperative changes at the uterus consistent with reported prior section and bilateral salpingectomies. Pelvis MRI 05/05/24 09:04 IMPRESSION: 1. Moderate amount of ascites with no change in size or configuration since 05/01/2024 in a 7.2 x 1.4 x 1.5 cm loculated fluid collection along the left side of the uterus. Review of prior CT imaging demonstrates peripheral increased attenuation of the loculated fluid collection as well as more subtle increased attenuation of the ascites. This suggests possibility of urine leak potentially from the left ureter. Correlate for any levels within the ascites and consider CT urogram for further evaluation. 2. Persistent mild bilateral hydroureteronephrosis which extends into the pelvis where the ureters taper without evident obstructing stones and suggesting this is likely secondary to inflammation related to the recent surgery. 3. Postoperative changes at the uterus consistent with reported prior section and bilateral salpingectomies. Chest X-Ray 05/05/24 12:31 IMPRESSION: No focal infiltrate or effusion. Retrograde Pyelogram 05/06/24 06:23 IMPRESSION: 1. 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 2. Mild right hydronephrosis and hydroureter. Right internal ureteral stent in expected position. Nephrostomy Tube Change 05/06/24 11:45 IMPRESSION: 1. Successful CT-guided left nephrostomy tube placement. 2. Small volume of ascites. 3. New moderate-sized right pleural effusion. 4. 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 Labs Labs: Laboratory Results - last 24 hr 05/06/24 09:48 WBC 9.8 RBC 3.47 L Hgb 9.6 L Hct 30.5 L MCV 87.9 MCH 27.7 MCHC 31.5 L RDW 14.7 H Plt Count 363 MPV 10.2 Sodium 139 Potassium 3.6 Chloride 110 H Carbon Dioxide 18 L Anion Gap 11 BUN 5 L Creatinine 1.66 H Estim Creat Clear Calc 44 Estimated GFR 35 L Glucose 83 Calcium 8.7 Total Bilirubin 0.3 AST 22 ALT 14 Alkaline Phosphatase 66 Total Protein 6.0 L Albumin 3.2 L
--- NOTE | 2024-05-06 16:38 | WPDANESPN ---
Anes - Prog Note Post-Op Date/Time: 05/06/24 16:38 Cardiovascular status: normal Respiratory status: normal Airway patency: baseline Mental status: baseline Post-Op hydration status: normal Vital Signs: Last Vital Signs Temp 36.6 C 05/06/24 11:30 Pulse 95 05/06/24 11:30 Resp 18 05/06/24 11:30 BP 109/78 05/06/24 11:30 Pulse Ox 97 05/06/24 11:30 O2 Del Method Room Air 05/05/24 20:10 O2 Flow Rate 7 05/05/24 15:31 Pain Score (VAS): 2 I/O: Intake & Output 05/06/24 05/06/24 05/06/24 07:59 15:59 23:59 Output Total 350 Balance -350 Laboratory Tests 05/06/24 09:48 05/06/24 09:48 05/06/24 09:48 WBC 9.8 RBC 3.47 L Hgb 9.6 L Hct 30.5 L MCV 87.9 MCH 27.7 MCHC 31.5 L RDW 14.7 H Plt Count 363 MPV 10.2 Sodium 139 Potassium 3.6 Chloride 110 H Carbon Dioxide 18 L Anion Gap 11 BUN 5 L Creatinine 1.66 H Estim Creat Clear Calc 44 Estimated GFR 35 L Glucose 83 Calcium 8.7 Total Bilirubin 0.3 AST 22 ALT 14 Alkaline Phosphatase 66 Total Protein 6.0 L Albumin 3.2 L Microbiology 05/01/24 14:30 Abdominal Fluid Anaerobic Culture - Preliminary 05/01/24 14:30 Abdominal Fluid Aerobic Culture - Final 05/04/24 09:43 Pleural Fluid Acid Fast Bacilli Culture - Preliminary 05/04/24 11:06 Ascites Fluid Anaerobic Culture - Preliminary 05/04/24 11:06 Ascites Fluid Aerobic Culture - Preliminary Post-procedural complaints: none Patient Feedback: Patient satisfied with anesthetic care.
[2024-05-06 19:40] VITALS: BP 106/71; PULSE 80; RESP 18; TEMP 36.8; O2SAT 98
[2024-05-07] MEDS: ACETAMINOPHEN 500 MG TABLET 1000 MG PO (04:50)
[2024-05-07] MEDS: IBUPROFEN 600 MG TABLET PO (04:50)
[2024-05-07 05:35] LABS: Anion Gap 6 mmol/L (4-12); Blood Urea Nitrogen 5 mg/dL (7-17); Calcium 8.7 mg/dL (8.4-10.2); Carbon Dioxide 23 mmol/L (22-30); Chloride 109 mmol/L (98-107); Estimated CRCL calculation 52 ml/min; Estimated Glomerular Filt Rate 43; Glucose 86 mg/dL (65-110); Potassium 3.8 mmol/L (3.4-5.0); Sodium 138 mmol/L (137-145)
[2024-05-07] MEDS: metroNIDAZOLE 500 MG TABLET PO (09:16)
[2024-05-07] MEDS: FAMOTIDINE 20 MG/2 ML VIAL IV PUSH (09:16)
[2024-05-07] MEDS: SIMETHICONE 80 MG TAB.CHEW PO (09:16)
[2024-05-07] MEDS: SULFAMETHOXAZOLE/TRIMETHOPRIM 800/160 MG DS TABLET 1 TAB PO (09:16)
--- NOTE | 2024-05-07 09:16 | P.PNOB_ITS ---
OB - PN: Subj Subjective Date/time seen: 05/07/24 09:16 Narrative: Pain OK. Would love to go home if possible. OB - PN: Obj Data Labs 05/06/24 09:48 05/07/24 04:38 Labs: Laboratory Results - last 24 hr 05/06/24 05/07/24 09:48 04:38 WBC 9.8 RBC 3.47 L Hgb 9.6 L Hct 30.5 L MCV 87.9 MCH 27.7 MCHC 31.5 L RDW 14.7 H Plt Count 363 MPV 10.2 Sodium 139 138 Potassium 3.6 3.8 Chloride 110 H 109 H Carbon Dioxide 18 L 23 Anion Gap 11 6 BUN 5 L 5 L Creatinine 1.66 H 1.37 H Estim Creat Clear Calc 44 52 Estimated GFR 35 L 43 L Glucose 83 86 Calcium 8.7 8.7 Total Bilirubin 0.3 AST 22 ALT 14 Alkaline Phosphatase 66 Total Protein 6.0 L Albumin 3.2 L Imaging Radiologist's impression: Impressions Nephrostomy Tube Change 05/06/24 11:45 IMPRESSION: 1. Successful CT-guided left nephrostomy tube placement. 2. Small volume of ascites. 3. New moderate-sized right pleural effusion. 4. 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 OB - PN A/P Plan day: 43 Comments: A: POD#43 s/p , now POD#1 after percutaneous nephrostomy placement, doing well. P: Home if OK with hospitalist and urologist, to f/u with urology for ureteral reimplantation and stent management. Exam 2 Narrative: AVSS ABD soft, nontender, fundus firm. Incision c/d/i. EXT nontender
[2024-05-07 09:28] VITALS: BP 104/66; PULSE 92; RESP 18; TEMP 36.8; O2SAT 97
--- NOTE | 2024-05-07 09:58 | PM.IMPN ---
Progress Note: A&P Assessment and Plan (1) Free fluid in pelvis: Code(s): R18.8 - Other ascites Status: Acute Assessment and Plan: Left Ureteral Injury Underwent Cystoscopy, bilateral retrograde pyelograms, left ureteroscopy, right ureteral stent placement 4.8 Tam[place]ight contour Left percutaneous nephrostomy tube placed 05/06. Definitive management of this transected ureter which most likely require a reimplant. Discussed with (Urologist) Left Nephrostomy tube placement and repair left ureteral in next 6 weeks (Urologist) will review the case and informs whether he can do it or not Otherwise patient needs to go [facility] or [facility] Further management as per [facility] and Urology Discussed the case with and (2) Ascites: Code(s): R18.8 - Other ascites Status: Acute Assessment and Plan: See above (3) Elevated serum creatinine: Code(s): R79.89 - Other specified abnormal findings of blood chemistry Status: Acute Assessment and Plan: See above (4) Abscess, intra-abdominal, postoperative: Code(s): T81.43XA - Infection following a procedure, organ and space surgical site, initial encounter; K65.1 - Peritoneal abscess Status: Acute Assessment and Plan: See above (5) Left ureteral injury: Code(s): S37.10XA - Unspecified injury of ureter, initial encounter Status: Acute Assessment and Plan: See above Subjective Date/time seen: 05/07/24 09:58 Interval history: Patient can follow-up with Urology as an outpatient. As mentioned previously patient needs left ureteral repair. As mentioned previously after assuming the care, coordinated with training specialist, GI, Urology, pathology and radiology in formulating the plan. Review of Systems Review of Systems: All systems reviewed & are unremarkable except as noted in HPI and below Eyes: Eyes: Denies blurry vision ENT: Reports Normal hearing present Cardiovascular: Cardiovascular: Denies chest pain Respiratory: Respiratory: Denies chest congestion Gastrointestinal: Gastrointestinal: Denies abdominal pain Genitourinary: Genitourinary: Denies hematuria Neurologic: Reports Normal hearing present Psychiatric: Psychiatric: Denies anxiety Exam Const: General: comfortable Eyes: General: appearance normal, both eyes and all related structures Resp: Effort & Inspection: normal respiratory effort Auscultation: clear to auscultation bilaterally Cardio: Rate: regular rate Rhythm: regular rhythm GI: Auscultation: normal bowel sounds Skin: General skin exam: normal color Neuro: Cranial nerves: Yes Normal hearing present Psych: Affect: Anxious affect present Objective Data Vital Signs Vital Signs: Vital Signs - 24 hr 05/06/24 11:30 05/06/24 19:40 05/06/24 19:40 Temperature 98 F 98.2 F Pulse Rate 95 80 Respiratory Rate 18 18 Blood Pressure 109/78 106/71 Pulse Oximetry 97 98 Oxygen Delivery Room Air 05/07/24 09:28 Temperature 98.3 F Pulse Rate 92 Respiratory Rate 18 Blood Pressure 104/66 Pulse Oximetry 97 Oxygen Delivery Intake/Output Intake/Output: Intake & Output 05/04/24 05/05/24 05/06/24 05/07/24 23:59 23:59 23:59 23:59 Intake Total 650 1840 2219 700 Output Total 3450 1600 1475 1500 Balance -2800 240 744 -800 Meds/Results Medications: Active Medications Generic Name Dose Route Start Last Admin Trade Name Freq PRN Reason Stop Dose Admin Acetaminophen 1,000 mg 04/28/24 10:32 05/07/24 04:50 Acetaminophen 500 Mg Tablet PO 1,000 mg Q6H PRN Administration pain 1-5 Diphenhydramine HCl 25 mg 04/30/24 13:18 05/05/24 20:17 Diphenhydramine Hcl Inj 50 Mg/Ml Vial IV PUSH 25 mg Q12H PRN Administration Itching Famotidine 20 mg 05/01/24 09:00 05/07/24 09:16 Famotidine 20 Mg/2 Ml Vial IV PUSH 20 mg Q12HR SABI Administration Fentanyl Citrate 25 mcg 05/05/24 14:26 Fentanyl Citrate Inj (*Crx) 100 Mcg/2 Ml Vial IV PUSH Q2M PRN Pain Hydroxyzine HCl 25 mg 05/03/24 02:27 Hydroxyzine Hcl 25 Mg Tablet PO Q6H PRN Anxiety Sodium Chloride 1,000 mls @ 125 mls/hr 05/05/24 09:45 05/06/24 16:00 Normal Saline Iv IV CONT Infused .Q8H SABI Infusion Ibuprofen 600 mg 04/28/24 10:32 05/07/24 04:50 Ibuprofen 600 Mg Tablet PO 600 mg Q6H PRN Administration pain 1-5 breakthrough Lidocaine 1 patch 05/04/24 11:40 05/07/24 09:18 Lidocaine 5% Patch TRANSDERM Not Given DAILY [facility] Metronidazole 500 mg 05/04/24 11:30 05/07/24 09:16 Metronidazole 500 Mg Tablet PO 05/09/24 11:29 500 mg Q12HR SABI Administration Miconazole Nitrate 1 applic 05/03/24 21:53 Miconazole Nitrate 2% Cream 30 Gm Tube TOPICAL BID PRN itching Miscellaneous Information 0 each 05/07/24 00:01 Morphine Renew If Still Needs Or Will Auto D/C XX 06/06/24 00:00 CLARIFY [facility] Morphine Sulfate 2 mg 04/28/24 04:43 05/06/24 11:48 Morphine Sulfate (*Crx) 2 Mg/Ml Inj IV PUSH 2 mg Q2H PRN Administration Pain Rated 7-10 Ondansetron HCl 4 mg 04/28/24 10:22 05/05/24 16:35 Ondansetron Inj 4 Mg/2 Ml Vial IV PUSH 4 mg Q4H PRN Administration Nausea And Vomiting Ondansetron HCl 4 mg 05/05/24 14:26 Ondansetron Inj 4 Mg/2 Ml Vial IV PUSH ONCE PRN Nausea Perflutren Lipid Microsphere 0 ml 05/04/24 10:20 Perflutren Lipid Microspheres 1.5 Ml Vial Diluted To 10 Ml Total Volume IV PUSH 05/07/24 10:21 ONCE PRN adequate visualization Protocol Simethicone 80 mg 05/01/24 09:00 05/07/24 09:16 Simethicone 80 Mg Tab.Chew PO 80 mg QID [facility] Administration Sodium Chloride 6 ml 05/06/24 05:00 Sodium Chlor 3% 15 Ml Neb (Respiratory Therapy) INHALATION 05/08/24 05:01 DAILY@0500 [facility] Trimethoprim/Sulfamethoxazole 1 tab 05/04/24 11:35 05/07/24 09:16 Sulfamethoxazole/Trimethoprim 800/160 Mg Ds Tablet PO 1 tab Q12HR SABI Administration Radiology Results: ITS Impressions Abdomen/Pelvis CT 05/01/24 08:18 IMPRESSION: Redemonstration of a rim-enhancing tubular-shaped collection in the left hemipelvis which has increased in size in a single dimension but is otherwise unchanged. Increased intra-abdominal ascites when compared with previous study. Interval development of bibasilar atelectasis. Interval worsening of the bilateral hydroureteronephrosis with decompression of the patient's bladder. Pelvis CT 05/02/24 13:20 IMPRESSION: 1. Moderate volume of ascites, decreased from 05/01/2024. A repeat paracentesis has since been performed. 2. No significant distinct fluid collection in the left adnexa. The drain placement was canceled. 3. Thickened endometrial complex status post section. This finding may be hematoma or infection. Retained products of conception are not excluded. Paracentesis Ultrasound 05/04/24 10:05 IMPRESSION: 1. Successful ultrasound-guided paracentesis yielding 1100 mL of yellow fluid. Cystogram 05/04/24 14:08 IMPRESSION: 1. Normal cystogram. Abdomen Ultrasound 05/04/24 20:15 IMPRESSION: 1: Gallbladder wall thickening with gallstones. 2: Moderate ascites. 3: No evidence for portal venous thrombosis. Arterial/Peripheral Duplex 05/04/24 20:15 IMPRESSION: 1: Gallbladder wall thickening with gallstones. 2: Moderate ascites. 3: No evidence for portal venous thrombosis. Abdomen MRI 05/05/24 09:04 IMPRESSION: 1. Moderate amount of ascites with no change in size or configuration since 05/01/2024 in a 7.2 x 1.4 x 1.5 cm loculated fluid collection along the left side of the uterus. Review of prior CT imaging demonstrates peripheral increased attenuation of the loculated fluid collection as well as more subtle increased attenuation of the ascites. This suggests possibility of urine leak potentially from the left ureter. Correlate for any levels within the ascites and consider CT urogram for further evaluation. 2. Persistent mild bilateral hydroureteronephrosis which extends into the pelvis where the ureters taper without evident obstructing stones and suggesting this is likely secondary to inflammation related to the recent surgery. 3. Postoperative changes at the uterus consistent with reported prior section and bilateral salpingectomies. Pelvis MRI 05/05/24 09:04 IMPRESSION: 1. Moderate amount of ascites with no change in size or configuration since 05/01/2024 in a 7.2 x 1.4 x 1.5 cm loculated fluid collection along the left side of the uterus. Review of prior CT imaging demonstrates peripheral increased attenuation of the loculated fluid collection as well as more subtle increased attenuation of the ascites. This suggests possibility of urine leak potentially from the left ureter. Correlate for any levels within the ascites and consider CT urogram for further evaluation. 2. Persistent mild bilateral hydroureteronephrosis which extends into the pelvis where the ureters taper without evident obstructing stones and suggesting this is likely secondary to inflammation related to the recent surgery. 3. Postoperative changes at the uterus consistent with reported prior section and bilateral salpingectomies. Chest X-Ray 05/05/24 12:31 IMPRESSION: No focal infiltrate or effusion. Retrograde Pyelogram 05/06/24 06:23 IMPRESSION: 1. 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 2. Mild right hydronephrosis and hydroureter. Right internal ureteral stent in expected position. Nephrostomy Tube Change 05/06/24 11:45 IMPRESSION: 1. Successful CT-guided left nephrostomy tube placement. 2. Small volume of ascites. 3. New moderate-sized right pleural effusion. 4. 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 Labs Labs: Laboratory Results - last 24 hr 05/06/24 05/07/24 09:48 04:38 WBC 9.8 RBC 3.47 L Hgb 9.6 L Hct 30.5 L MCV 87.9 MCH 27.7 MCHC 31.5 L RDW 14.7 H Plt Count 363 MPV 10.2 Sodium 139 138 Potassium 3.6 3.8 Chloride 110 H 109 H Carbon Dioxide 18 L 23 Anion Gap 11 6 BUN 5 L 5 L Creatinine 1.66 H 1.37 H Estim Creat Clear Calc 44 52 Estimated GFR 35 L 43 L Glucose 83 86 Calcium 8.7 8.7 Total Bilirubin 0.3 AST 22 ALT 14 Alkaline Phosphatase 66 Total Protein 6.0 L Albumin 3.2 L Hospitalist [facility] Advance Care Plan I have confirmed that the patient's Advanced Care Plan is present, code status is documented, or surrogate decision maker is listed in patient medical record.: Yes Medication Reconciliation I have utilized all available resources to obtain, update and review the patients current medications (includes all prescriptions, OTC, herbals, cannabis, and nutritional supplements).: Yes
--- NOTE | 2024-05-07 12:50 | PC.NURSE ---
Went through discharge instructions with patient and patients mother, both verbalized understanding. Demonstrated a dressing change on patients nephrostomy tube with patient's mom, verbalized understanding of demonstration and both patient and patients mom feel comfortable taking care of tube and dressing changes.
[2024-05-09 20:14] LABS: Glucose Peritoneal Fluid 78 mg/dL; Total Protein Peritoneal Fluid <3.0 g/dL
[2024-05-09 23:58] LABS: Albumin Peritoneal Fluid 1.2 g/dL
[2024-05-10 11:23] LABS: LDH Peritoneal Fluid 121 U/L (<63)
== END 2024-05-07 13:25 | disposition home or self-care (01) | DRG 769 ==
LOC: ANHED 04-28 04:43 → ANH3MEDSUR 04-28 06:22 → ANHOB2 04-28 11:46 → ANHOBPP 05-01 11:21 → ANHOB2 05-04 07:46 → ANHOBPP 05-08 13:07 → ANHOB2 05-08 13:29 → ANHOBPP 05-08 13:29
PROVIDERS: Emergency Medicine; General Practice; Nurse Practitioner; Radiology Diagnostic Radiology; Urology; Admitting Provider Obstetrics & Gynecology Gynecology; Emergency Provider Registered Nurse; PCP Family Medicine; Visit Provider Obstetrics & Gynecology Gynecology
PROC: 0W9G3ZX Drainage of Peritoneal Cavity, Percutaneous Approach, Diagnostic (ICD-10-PCS; CPT 75989; principal; 2024-05-02 11:30)
PROC: 0T768DZ Dilation of Right Ureter with Intraluminal Device, Via Natural or Artificial Opening Endoscopic (ICD-10-PCS; CPT 52352; principal; 2024-05-05 17:30)
DX: O86.89 Other specified puerperal infections (principal); K65.1 Peritoneal abscess; O90.49 Other postpartum acute kidney failure; N99.71 Accidental puncture and laceration of a genitourinary system organ or structure during a genitourinary system procedure; R18.8 Other ascites; N13.39 Other hydronephrosis; O71.89 Other specified obstetric trauma; O99.893 Other specified diseases and conditions complicating puerperium
CPT/HCPCS: 36415; 49083; 50435; 51600; 71045; 72194; 72195; 74177; 74181; 74420; 74430; 76700; 80048; 80053; 80074; 80076; 81001; 81025; 82042; 82945; 83605; 83615; 83690; 84157; 85025; 85027; 85610; 85652; 85730; 86140; 86304; 87015; 87040; 87070; 87075; 87116; 87205; 87206; 88108; 88305; 88312; 88342; 89051; 93306; 93976; 96365; 96367; 96375; 96376; 99199; 99285; A9270; C1729; C1758; C1769; C2617; G0378; J0696; J1100; J1200; J1836; J1885; J2250; J2270; J2405; J2704; J3010; J7030; J7120; Q9966; Q9967